=== PATIENT | male | born 1950 | race Caucasian/White ===

== ENCOUNTER 2019-09-23 19:25 | Emergency (ER) | payer MEDICARE ==
--- NOTE | 2019-09-23 20:56 | ED Physician Documentation ---
PD HPI LOWER EXT INJURY - Stated complaint Stated Complaint: LT KNEE INJURY - Chief complaint Chief Complaint: Ext Problem - History obtained from History obtained from: Patient - History of Present Illness PD HPI LOW EXT INJURY LOCATION: Left, Knee Type of injury: Blunt / blow Where injury occurred: Park Timing - onset: Enter time (16:00), Today Timing - details: Abrupt onset Improved by: Rest Worsened by: Moving, Palpating Associated symptoms: Swelling. No: Weakness, Numbness Recently seen: Not recently seen - Additional information Additional information: patient was in a park walking his dog at approximately 4 PM today. Another dog was chasing patient's dog and the other dog, which was particularly large, struck patient's left knee. Patient had sudden onset left knee pain that has steadily worsened since the incident Review of Systems Musculoskeletal: reports: Joint pain, Joint swelling, Pain with weight bearing Neurologic: denies: Focal weakness, Numbness PD PAST MEDICAL HISTORY - Past Surgical History Past Surgical History: Yes Ortho: Knee replacement (right knee) - Present Medications Home Medications: Ambulatory Orders Medication Instructions Recorded Confirmed Hydrocodone/Acetaminophen 1 - 2 each PO Q6H PRN #14 tablet 09/23/19 [Hydrocodon-Acetaminophen 5-325] - Allergies Allergies/Adverse Reactions: Allergies Allergy/AdvReac Type Severity Reaction Status Date / Time No Known Drug Allergies Allergy Verified 09/23/19 19:33 - Living Situation Living Arrangement: reports: At home PD ED PE NORMAL - Vitals Vital signs reviewed: Yes - General General: Alert and oriented X 3, No acute distress, Well developed/nourished - Derm Derm: Normal color, Warm and dry - Neuro Neuro: No motor deficit, No sensory deficit PD ED PE EXPANDED - Extremities Extremities: Tenderness (anterolateral aspect of left knee), Swelling. No: Limited ROM (FROM right knee but pain with ROM) Results - Vitals Vitals: Vital Signs - 24 hr 09/23/19 09/23/19 19:33 21:48 Temperature 36.5 C 36.8 C Heart Rate 120 H 113 H Respiratory 16 18 Rate Blood Pressure 166/100 H 150/98 H O2 Saturation 98 96 Oxygen O2 Source Room air - Rads (name of study) left knee xrays Radiology: Prelim report reviewed, See rad report PD MEDICAL DECISION MAKING - ED course Complexity details: reviewed results, re-evaluated patient, considered differential, d/w patient Departure - Departure Disposition: 01 Home, Self Care Clinical Impression: Left knee sprain Qualifiers: Encounter type: initial encounter Involved ligament of knee: unspecified ligament Qualified Code(s): S83.92XA - Sprain of unspecified site of left knee, initial encounter Condition: Good Instructions: ED Sprain Knee Follow-Up: Tommie Zhang MD [Provider Admit Priv/Credential] - Prescriptions: Hydrocodone/Acetaminophen [Hydrocodon-Acetaminophen 5-325] 1 - 2 each PO Q6H PRN #14 tablet PRN Reason: pain Discharge Date/Time: 09/23/19 22:01
--- NOTE | 2019-09-23 21:05 | XRAY Report ---
Reason: fall, knee pain Procedure Date: 09/23/2019 Accession Number: [id number] / [id number] Procedure: XR - Knee 4 View LT CPT Code: Final Report FULL RESULT: EXAM: LEFT KNEE RADIOGRAPHY EXAM DATE: 09/23/2019 08:51 PM. CLINICAL HISTORY: Fall, knee pain. COMPARISON: None. TECHNIQUE: 4 views. FINDINGS: Bones: Mild decreased osseous mineralization somewhat limits evaluation for nondisplaced fractures. No definite displaced fractures identified radiographically. Joints: Moderate to large knee effusion. Soft Tissues: Large focus of heterotopic ossification along the lateral aspect of the proximal lateral femoral condyle. IMPRESSION: 1. Decreased osseous mineralization somewhat limits evaluation for nondisplaced fractures. 2. No definite displaced fractures identified radiographically. 3. Moderate to large knee effusion. RADIA
[2019-09-23] MEDS: HYDROcod/ACET 5/325 Prepack 4 PO STA (21:47)
[2019-09-23 21:52] VITALS: BP 150/98
== END 2019-09-23 22:01 | disposition home or self-care (01) ==
LOC: ED 19:25
DX: S83.92XA Sprain of unspecified site of left knee, initial encounter (principal); W54.1XXA Struck by dog, initial encounter; Y93.K1 Activity, walking an animal; Y92.830 Public park as the place of occurrence of the external cause; Z96.651 Presence of right artificial knee joint
CPT/HCPCS: 99283

== ENCOUNTER 2019-10-17 09:12 | Emergency (ER) | payer MEDICARE, OTHER ==
[2019-10-17 09:27] VITALS: BP 164/102
--- NOTE | 2019-10-17 10:30 | ED Physician Documentation ---
History of Present Illness - Stated complaint Stated Complaint: MED REFILL - Chief complaint Chief Complaint: General - Additonal information Additional information: This is a 68-year-old male who presents with left knee pain requesting medi cation refill. He injured his knee 3 weeks ago, had an x-ray at the time did not show any fracture but did show a joint effusion. He was prescribed some Vicodin at that time and his knee has been improving, he got off crutches just over a week ago and his ambulation is gotten better. He does continue to have some pain, but overall he is improving. He plans to follow-up with his orthopedist if he does not have continued improvement. He is about to go on a flight to a meeting and he states that the pain at night is keeping him up, and he is hoping to get a refill of a few more of the pain medications for his flight and travels only. He cannot take ibuprofen because he has atrial fibrillation and is on warfarin. He has been trying Tylenol, but this is been effective alone. No fever or chills. Review of Systems Constitutional: denies: Fever Musculoskeletal: reports: Extremity pain PD PAST MEDICAL HISTORY - Past Medical History Cardiovascular: Hypertension, Atrial fibrillation Endocrine/Autoimmune: Type 2 diabetes - Past Surgical History Past Surgical History: Yes Ortho: Knee replacement (right knee) - Present Medications Home Medications: Ambulatory Orders Medication Instructions Recorded Confirmed Hydrocodone/Acetaminophen 1 - 2 each PO Q6H PRN #14 tablet 09/23/19 [Hydrocodon-Acetaminophen 5-325] Hydrocodone/Acetaminophen 1 - 2 each PO Q6H PRN #12 tablet 10/17/19 [Hydrocodon-Acetaminophen 5-325] - Allergies Allergies/Adverse Reactions: Allergies Allergy/AdvReac Type Severity Reaction Status Date / Time lisinopril Allergy Headache Verified 10/17/19 09:22 - Social History Does the pt smoke?: No Smoking Status: Never smoker Does the pt drink ETOH?: No Does the pt have substance abuse?: No - Immunizations Immunizations are current?: Yes - POLST Patient has POLST: No PD ED PE NORMAL - Vitals Vital signs reviewed: Yes - General General: Alert and oriented X 3 - HEENT HEENT: PERRL - Neck Neck: Supple, no meningeal sign - Cardiac Cardiac: Strong equal pulses - Respiratory Respiratory: No respiratory distress - Abdomen Abdomen: Non distended - Derm Derm: Warm and dry - Extremities Extremities: Other (There is some mild edema around the left knee. No obvious laxity with anterior and posterior drawer testing, no tenderness over the MCL or ACL. He has 5 out of 5 strength with knee extension and flexion, normal range of motion. He is to ambulate and bear weight on the knee.Distal sensation and capillary refill are intact) - Neuro Neuro: Alert and oriented X 3 - Psych Psych: Normal mood, Normal affect Results - Vitals Vitals: Oxygen O2 Source Room air PD MEDICAL DECISION MAKING - ED course ED course: Pt presents with improving knee pain. He has outpatient follow up planned. He has good ROM, no signs of infection or fracture. He is able to bear weight on it. He did have an effusion on his XR on previous visit and it is possible that he has an internal derangement, though his improvement and no longer needing crutches is reassuring. I discussed with him in depth the risks and side effects of narcotic medications. After discussion with him he is low risk for complications and I am willing to provide one, several day refill of hydrocodone, but he understands this is the last script he will obtain from the ED, and that he needs to taper off these medications. After reviewing return precautions and follow up pt was discharged in good condition. Departure - Departure Disposition: 01 Home, Self Care Clinical Impression: Knee pain, left Qualifiers: Chronicity: acute Qualified Code(s): M25.562 - Pain in left knee Prescriptions: Hydrocodone/Acetaminophen [Hydrocodon-Acetaminophen 5-325] 1 - 2 each PO Q6H PRN #12 tablet PRN Reason: pain Comments: I am prescribing you a few days worth of the Vicodin, but any further narcotic medications will have to come from your orthopedist or primary care provider. As we spoke about, these medications can be addictive and tolerance forming, they have multiple side effects, use them only if absolutely needed, and taper down their use as soon as possible. If you are having any continued or not improving pain, I think it is important that you follow-up with your primary care provider and/or your orthopedist. If you are having signs of infection or severely worsening pain return to the emergency department. Do not drink alcohol or drive while taking narcotic pain medication. Note that many narcotic pain relievers also contain Tylenol/acetaminophen. Please ensure that your total dose of acetaminophen from all sources does not exceed 3 g (3000 mg) per day. You may get constipated while on this medication. Take a stool softener such as Colace twice a day while you are on it. Also add an [id number] laxative such as senna or MiraLAX on any day that you do not have a bowel movement. If you received a narcotic pain medication or sedative while in the emergency department, do not drive for the next 24 hours. Discharge Date/Time: 10/17/19 10:49
== END 2019-10-17 10:49 | disposition home or self-care (01) ==
LOC: ED 09:12
DX: M25.562 Pain in left knee (principal); Z76.0 Encounter for issue of repeat prescription; I48.91 Unspecified atrial fibrillation; Z79.01 Long term (current) use of anticoagulants; I10 Essential (primary) hypertension; E11.9 Type 2 diabetes mellitus without complications; Z96.651 Presence of right artificial knee joint
CPT/HCPCS: 99281; 99284

== ENCOUNTER 2020-03-22 13:41 | Outpatient (CLI) | payer MEDICARE, OTHER ==
--- NOTE | 2020-03-22 15:18 | MRI Report ---
PROCEDURE: Knee LT W/O INDICATIONS: PAIN IN LT KNEE TECHNIQUE: Noncontrast sagittal PD fast spin echo and T2 fast spin echo with fat saturation, sagittal 3-D gradie nt sequence with fat saturation; coronal T1 spin echo and PD fast spin echo with fat saturation, and axial PD fast spin echo with fat saturation through the knee. COMPARISON: None. FINDINGS: Image quality: Excellent. Menisci: Linear oblique high T2 signal intensity traverses the medial meniscal posterior horn, demons trating oblique tearing. There is lateral extrusion of the lateral meniscus which demonstrates linear and amorphous high signal intensity within its anterior horn, body, and posterior horn, demonstratin g superior and inferior articular surface extension, indicating complex tearing. Radial tearing of th e free edge of the lateral meniscal body is present, which is truncated. Cruciate ligaments: The anterior cruciate ligament is indistinct and demonstrates moderate internal and surrounding T2 signal elevation. Posterior cruciate ligament is intact. Medial structures: The medial collateral ligament appears intact. The posterior oblique ligament, s emimembranosus tendon insertions, and oblique popliteal ligament, and meniscocapsular junction appear intact. Visualized portions of the pes anserinus tendons appear normal. Small amount of medial burs al fluid. Lateral structures: The lateral collateral ligament demonstrates moderate T2 signal elevation at its femoral origin. The Long and short heads of the biceps femoris tendon appear intact. The popliteus tendon appears normal; the popliteofibular ligament appears intact. The posterosuperior and anteroin ferior popliteomeniscal fascicles appear intact. The arcuate and fabellofibular ligaments appear int act, around the lateral inferior geniculate artery. Iliotibial band appears normal. Anterior structures: The quadriceps and patellar tendons appear intact. Patellar alignment is viri l. No femoral trochlear dysplasia or ventral trochlear prominence. No edema in the infrapatellar fa t pad. Bones and cartilage: There is a mildly displaced sagittal oblique plane fracture of the lateral tibia l plateau, with articular surface extension to the tibial plateau. There is mild surrounding ill-defi shyanne STIR signal elevation within the lateral tibial plateau. Moderate tricompartmental periarticular osteophyte formation. Mild articular cartilage loss diffusely overlies the weightbearing aspects of t he medial femoral condyle and medial tibial plateau. Severe articular cartilage loss diffusely overli es the weightbearing aspects of the lateral femoral condyle and lateral tibial plateau. Severe articu lar cartilage loss overlies the lateral aspect of the lateral patellar facet. Joint space: There is a moderate knee joint effusion. There is a 17 mm loose body within the latera l suprapatellar recess. No Byers?s cyst. Normal appearing synovial plicae are incidentally noted. IMPRESSION: 1. Mildly displaced subacute appearing fracture of the lateral tibial plateau. 2. Medial and lateral meniscal tearing. 3. Tricompartment loss or arthritis with associated articular cartilage loss. 4. Knee joint effusion. Intra-articular loose body. 5. Partial-thickness lateral collateral ligament tear. 6. ACL strain. 7. Medial bursitis. Reviewed by: Fariba Hopkins MD on 03/22/2020 3:17 PM PDT Approved by: Fariba Hopkins MD on 03/22/2020 3:17 PM PDT Station ID: [id number]
== END 2020-03-22 13:42 | disposition home or self-care (01) ==
LOC: DI 13:41
PROVIDERS: ATTEND Internal Medicine
DX: S82.142A Displaced bicondylar fracture of left tibia, initial encounter for closed fracture (principal); S83.282A Other tear of lateral meniscus, current injury, left knee, initial encounter; S83.242A Other tear of medial meniscus, current injury, left knee, initial encounter; S83.422A Sprain of lateral collateral ligament of left knee, initial encounter; S83.512A Sprain of anterior cruciate ligament of left knee, initial encounter; M70.52 Other bursitis of knee, left knee; M25.462 Effusion, left knee; M25.362 Other instability, left knee

== ENCOUNTER 2020-04-26 12:53 | Outpatient (CLI) | payer MEDICARE, OTHER | END 2020-04-26 12:54 | disposition critical access hospital (66) | LOC: EMS 12:53 | PROVIDERS: ATTEND Surgery | DX: M25.512 Pain in left shoulder (principal); M54.2 Cervicalgia; R06.02 Shortness of breath | CPT/HCPCS: A0425; A0427 ==

== ENCOUNTER 2020-04-26 13:00 | Emergency (ER) | payer MEDICARE, OTHER ==
[2020-04-26 13:21] LABS: BASOPHILS % (AUTO) 0.3 %; EOSINOPHILS % (AUTO) 1.3 %; HGB - HEMOGLOBIN 11.9 g/dL (14.0-18.0); LYMPHOCYTES % (AUTO) 1.1 %; MEAN CORPUSCULAR HEMOGLOBIN 32.3 pg (27.0-31.0); MEAN CORPUSCULAR HGB CONC 34.5 g/dL (32.0-36.0); MEAN CORPUSCULAR VOLUME 93.8 fL (80.0-94.0); MEAN PLATELET VOLUME 8.9 fL (7.4-11.4); MONOCYTES % (AUTO) 7.7 %; NEUTROPHILS % (AUTO) 88.9 %; PLT - PLATELET COUNT 186 10^3/uL (130-450); RED BLOOD COUNT 3.68 10^6/uL (4.70-6.10); RED CELL DISTRIBUTION WIDTH 12.4 % (12.0-15.0); WHITE BLOOD COUNT 14.9 x10^3/uL (4.8-10.8)
[2020-04-26 13:24] LABS: ABNORMAL LYMPHS % (MANUAL) 0 %
[2020-04-26 13:34] LABS: ALBUMIN 3.5 g/dL (3.2-5.5); ALBUMIN/GLOBULIN RATIO 0.9 (1.0-2.2); BILIRUBIN,TOTAL 0.6 mg/dL (0.2-1.0); CREATININE 1.5 mg/dL (0.6-1.2); TOTAL PROTEIN 7.5 g/dL (6.7-8.2)
--- NOTE | 2020-04-26 13:34 | ED Physician Documentation ---
History of Present Illness - Stated complaint Stated Complaint: CHEST PAIN - History obtained from History obtained from: Patient - History of Present Illness Timing: Prior to arrival, How many hours ago (22) - Additonal information Additional information: 69-year-old gentleman with a known history of Zentz to the emergency department with chief complaint of left shoulder pain that radiates down the right arm. Pain began yesterday at approximately 4 PM. He describes the pain is quite severe limiting his ability to raise his left arm. He does report that the day before he had helped unload heavy bags of garbage from a truck. He reports some mild SOB that he attributes to recent bladder problems. He denies that his chest hurts. But because of the location of the pain he is worried about his heart.He has also recently developed acute kidney injury. For which his hydrochlorothiazide and losartan have been placed on hold. pm,h: htn, atrial fibrillation, DM meds: coumadin, digoxin, Januvia (on hold HCTZ and losartan) pcp: Dr. Dougherty ([facility]) [employer] PD PAST MEDICAL HISTORY - Past Medical History Cardiovascular: Hypertension, Atrial fibrillation Respiratory: None Neuro: Peripheral neuropathy Endocrine/Autoimmune: Type 2 diabetes GI: None : Benign prostate hypertrophy, Other HEENT: None Psych: None Musculoskeletal: Osteoarthritis Derm: None - Past Surgical History Past Surgical History: Yes Ortho: Knee replacement HEENT: Tonsil/Adenoidectomy - Present Medications Home Medications: Ambulatory Orders Medication Instructions Recorded Confirmed Hydrocodone/Acetaminophen 1 - 2 each PO Q6H PRN #14 tablet 09/23/19 [Hydrocodon-Acetaminophen 5-325] Hydrocodone/Acetaminophen 1 - 2 each PO Q6H PRN #12 tablet 10/17/19 [Hydrocodon-Acetaminophen 5-325] HYDROcod/ACETAM 5/325 [Burgess 5/325] 1 each PO BID #5 tablet 04/26/20 - Allergies Allergies/Adverse Reactions: Allergies Allergy/AdvReac Type Severity Reaction Status Date / Time lisinopril Allergy Headache Verified 04/15/20 16:42 - Social History Does the pt smoke?: No Smoking Status: Never smoker Does the pt drink ETOH?: No Does the pt have substance abuse?: No - Immunizations Immunizations are current?: Yes - POLST Patient has POLST: No PD ED PE NORMAL - General General: Alert and oriented X 3, No acute distress - Neck Neck: Supple, no meningeal sign - Cardiac Cardiac: No murmur, Strong equal pulses, Other (Irregularly irregular pulse. Atrial fibrillation noted on monitor. No murmur) - Respiratory Respiratory: No respiratory distress, Clear bilaterally - Abdomen Abdomen: Normal bowel sounds, Non tender - Back Back: No CVA TTP - Derm Derm: Normal color, Warm and dry, No rash - Extremities Extremities: No deformity. No: No tenderness to palpate (Tenderness with palpation of the left anterior shoulder. Painful range of motion noted. 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, No motor deficit, No sensory deficit, Normal speech Eye Opening: Spontaneous Motor: Obeys Commands Verbal: Oriented GCS Score: 15 - Psych Psych: Normal mood Results - Vitals Vitals: Vital Signs - 24 hr 04/26/20 04/26/20 04/26/20 13:03 13:39 14:04 Temperature 38.1 C H 37.2 C Heart Rate 112 H 85 100 Respiratory 17 26 H 13 Rate Blood Pressure 150/107 H 142/85 H 154/67 H O2 Saturation 95 95 100 04/26/20 14:30 Temperature Heart Rate 105 H Respiratory 32 H Rate Blood Pressure 153/99 H O2 Saturation 100 Oxygen O2 Source Room air - EKG (time done) 1305 Rate: Rate (enter#) (113) Rhythm: Atrial fibrillation [place]: LAD Intervals: Normal SD QRS: Normal Ischemia: Non specific changes (v5v6) Compare to prior EKG: Old EKG unavailable Computer interpretation: Agree with computer - Labs Labs: Laboratory Tests 04/26/20 04/26/20 04/26/20 13:15 13:15 13:15 WBC 14.9 H RBC 3.68 L Hgb 11.9 L Hct 34.5 L MCV 93.8 MCH 32.3 H MCHC 34.5 RDW 12.4 Plt Count 186 MPV 8.9 Neut # (Auto) Not Reportable Lymph # (Auto) Not Reportable Trinity # (Auto) Not Reportable Eos # (Auto) Not Reportable Baso # (Auto) Not Reportable Absolute Nucleated RBC Not Reportable Total Counted 100 Band Neuts % (Manual) 4 Abnorm Lymph % (Manual) 0 Nucleated RBC % Not Reportable Neutrophils # (Manual) 13.7 H Lymphocytes # (Manual) 0.3 L Monocytes # (Manual) 0.9 Eosinophils # (Manual) 0.0 Basophils # (Manual) 0.0 Differential Comment MANUAL DIFFERENTIAL Platelet Estimate NORMAL (130-450,000) Platelet Morphology NORMAL APPEARANCE RBC Morph Micro Appear NORMAL APPEARANCE Sodium 129 L Potassium 4.1 Chloride 93 L Carbon Dioxide 23 Anion Gap 13.0 BUN 35 H Creatinine 1.5 H Estimated GFR (MDRD) 46 L Glucose 279 H Calcium 9.0 Total Bilirubin 0.6 AST 15 ALT 19 Alkaline Phosphatase 63 Troponin I High Sens B-Natriuretic Peptide 611 H Total Protein 7.5 Albumin 3.5 Globulin 4.0 Albumin/Globulin Ratio 0.9 L Lipase 16 L 04/26/20 13:15 WBC RBC Hgb Hct MCV MCH MCHC RDW Plt Count MPV Neut # (Auto) Lymph # (Auto) Trinity # (Auto) Eos # (Auto) Baso # (Auto) Absolute Nucleated RBC Total Counted Band Neuts % (Manual) Abnorm Lymph % (Manual) Nucleated RBC % Neutrophils # (Manual) Lymphocytes # (Manual) Monocytes # (Manual) Eosinophils # (Manual) Basophils # (Manual) Differential Comment Platelet Estimate Platelet Morphology RBC Morph Micro Appear Sodium Potassium Chloride Carbon Dioxide Anion Gap BUN Creatinine Estimated GFR (MDRD) Glucose Calcium Total Bilirubin AST ALT Alkaline Phosphatase Troponin I High Sens 12.7 B-Natriuretic Peptide Total Protein Albumin Globulin Albumin/Globulin Ratio Lipase - Rads (name of study) CXR Radiology: Final report received (No acute cardiopulmonary disease) Left shoulder Radiology: Final report received (Moderate left shoulder joint osteoarthritis. No acute fracture dislocation) PD MEDICAL DECISION MAKING - ED course Complexity details: reviewed results, re-evaluated patient, considered differential, d/w patient ED course: 69-year-old male presents the emergency department for evaluation of left shoulder pain that radiates down his left arm. He does report that the pain began nearly 24 hours ago. He also reports that about 2 days ago he did lift he manuel bags of garbage out of a truck but does not remember any inciting events. He does reports some dyspnea over the last few days as well - Noted to be in atrial fibrillation. This is a known history. This gentleman is anticoagulated and takes Coumadin. His initial high-sensitivity troponin is negative. His chest x-ray also shows no acute cardiopulmonary findings to suggest heart failure however his BNP is elevated at 611 today - He has been noted to have acute renal injury within the last month. This is been managed through his primary care doctor. His creatinine today is 1.5 which is improved from the previous known of 1.85 - I spoke on the phone with the on-call mill tender warm up with [facility] Diony for this patient. At this point given his moderate BNP elevation of 611. She would not recommend necessarily restarting his hydrochlorothiazide. She does recommend that the BNP be rechecked by his primary care doctor or his mill tender warm up in the next week. - The left shoulder pain is likely musculoskeletal in origin. He did lift heavy trash bags out of a truck 2 days previous. X-ray does show osteoarthritis. I will recommend Tylenol and ice packs. I will also prescribe a very limited amount of hydrocodone for overnight pain relief. Departure - Departure Disposition: Home, Self Care Clinical Impression: Shortness of breath, Elevated brain natriuretic peptide (BNP) level, History of atrial fibrillation Left shoulder pain Qualifiers: Chronicity: acute Qualified Code(s): M25.512 - Pain in left shoulder Condition: Stable Record reviewed to determine appropriate education?: Yes Instructions: Atrial Fibrillation Dc, Shoulder Osteoarthritis Exercise Follow-Up: LEIGH DOUGHERTY [Primary Care Provider] - Within 1 week Prescriptions: HYDROcod/ACETAM 5/325 [Burgess 5/325] 1 each PO BID #5 tablet Comments: The x-ray of your left shoulder shows arthritis. You most likely strained the left shoulder a few days ago when lifting the heavy bags. I would recommend that you ice the shoulder 2-3 times a day for discomfort. I have also prescribed a very limited number of Burgess or Vicodin to help with the pain. Today your EKG continues to show atrial fibrillation but it does not look like you are having a heart attack. 1 of the labs that we measured was called a BNP. This is slightly elevated at 600 today. This may be because you recently stopped taking the hydrochlorothiazide. I would like you to discuss this with your primary care doctor next week. If your creatinine continues to improve resuming the hydrochlorothiazide can be initiated. Your creatinine today is 1.5 If you develop chest pain, worsening shortness of breath have swelling in your arms or legs then please return to the emergency department
--- NOTE | 2020-04-26 13:41 | XRAY Report ---
PROCEDURE: Chest 1 View X-Ray INDICATIONS: Chest Pain TECHNIQUE: One view of the chest was acquired. COMPARISON: None. FINDINGS: Surgical changes and devices: None. Lungs and pleura: No pleural effusions or pneumothorax. Lungs are clear. Mediastinum: Mediastinal contours appear normal. Heart size is normal. Bones and chest wall: No suspicious bony lesions. Overlying soft tissues appear unremarkable. IMPRESSION: No acute disease. Reviewed by: Nestor Chisholm MD on 04/26/2020 1:39 PM PDT Approved by: Nestor Chisholm MD on 04/26/2020 1:39 PM PDT Station ID: [id number]
[2020-04-26 13:42] LABS: BAND NEUTROPHILS % (MANUAL) 4 %; DIFFERENTIAL COMMENT MANUAL DIFFERENTIAL; LYMPHOCYTES # (MANUAL) 0.3 10^3/uL (1.5-3.5); LYMPHOCYTES % (MANUAL) 2 %; MONOCYTES # (MANUAL) 0.9 10^3/uL (0.0-1.0); PLATELET ESTIMATE, MANUAL NORMAL (130-450,000) (NORMAL); PLATELET MORPHOLOGY NORMAL APPEARANCE (NORMAL); RBC MORPHOLOGY (MULTIPLE) NORMAL APPEARANCE (NORMAL)
--- NOTE | 2020-04-26 14:27 | XRAY Report ---
PROCEDURE: Shoulder 2 View LT INDICATIONS: left shoulder pain TECHNIQUE: 2 views of the shoulder were acquired. COMPARISON: None. FINDINGS: Bones: No fractures or dislocations. Moderate acromioclavicular joint and glenohumeral joint osteoar thritic changes are seen. No suspicious bony lesions. Visualized ribs appear intact. Soft tissues: No suspicious soft tissue calcifications. IMPRESSION: Moderate left shoulder joint osteoarthritis. No acute fracture or dislocation. Reviewed by: Saw Brandon MD on 04/26/2020 1:25 PM AKSTEVEN Approved by: Saw Brandon MD on 04/26/2020 1:25 PM AKDT Station ID: [id number]
[2020-04-26 15:29] VITALS: BP 139/117
== END 2020-04-26 15:29 | disposition home or self-care (01) ==
LOC: EDUNIT# → ED 13:00
DX: M19.012 Primary osteoarthritis, left shoulder (principal); M79.602 Pain in left arm; X50.0XXA Overexertion from strenuous movement or load, initial encounter; Y93.89 Activity, other specified; I48.91 Unspecified atrial fibrillation; Z79.01 Long term (current) use of anticoagulants; R06.02 Shortness of breath; R79.89 Other specified abnormal findings of blood chemistry; I10 Essential (primary) hypertension; E11.42 Type 2 diabetes mellitus with diabetic polyneuropathy; Z79.84 Long term (current) use of oral hypoglycemic drugs
CPT/HCPCS: 36415; 71045; 80053; 83690; 83880; 84484; 85025; 93005; 99281; 99284

== ENCOUNTER 2020-04-28 20:10 | Inpatient (IN) | payer MEDICARE, OTHER ==
[2020-04-28] MEDS ORDERED: MORPHINE 2 MG/ML CARPUJECT IVP STA (20:18)
[2020-04-28] MEDS ORDERED: SODIUM CHLORIDE 0.9% 1,000 ML IV STA ×4 (20:18→22:01)
--- NOTE | 2020-04-28 20:23 | ED Physician Documentation ---
History of Present Illness - Stated complaint Stated Complaint: GLF - History obtained from History obtained from: Patient, Family, EMS - History of Present Illness Timing: Today Pain level max: 0 Pain level now: 0 - Additonal information Additional information: 69-year-old male states that he tripped and fell last night at home. He is on warfarin. Unclear if he struck his head or not. He states he is having bilateral knee pain, right elbow pain, left shoulder pain. States he is too weak to walk. He was seen here a few days ago for chest pain. He does self catheterize. He is also diabetic, has not been checking his blood sugars. He feels dehydrated as well. Review of Systems Ten Systems: 10 systems reviewed and negative Constitutional: denies: Fever, Chills Ears: denies: Ear pain Nose: denies: Rhinorrhea / runny nose, Congestion Throat: denies: Sore throat Respiratory: denies: Cough GI: denies: Abdominal Pain, Nausea, Vomiting, Diarrhea Skin: denies: Rash Musculoskeletal: reports: Extremity pain (L shoulder, R elbow, B knees, L hip). denies: Neck pain, Back pain Neurologic: reports: Generalized weakness. denies: Focal weakness, Numbness, Syncope, Seizure, Confused PD PAST MEDICAL HISTORY - Past Medical History Cardiovascular: Hypertension, Atrial fibrillation Respiratory: None Neuro: Peripheral neuropathy Endocrine/Autoimmune: Type 2 diabetes GI: None : Benign prostate hypertrophy, Other HEENT: None Psych: None Musculoskeletal: Osteoarthritis Derm: None - Past Surgical History Past Surgical History: Yes Ortho: Knee replacement HEENT: Tonsil/Adenoidectomy - Present Medications Home Medications: Ambulatory Orders Medication Instructions Recorded Confirmed Hydrocodone/Acetaminophen 1 - 2 each PO Q6H PRN #14 tablet 09/23/19 [Hydrocodon-Acetaminophen 5-325] Hydrocodone/Acetaminophen 1 - 2 each PO Q6H PRN #12 tablet 10/17/19 [Hydrocodon-Acetaminophen 5-325] HYDROcod/ACETAM 5/325 [[place] 5/325] 1 each PO BID #5 tablet 04/26/20 - Allergies Allergies/Adverse Reactions: Allergies Allergy/AdvReac Type Severity Reaction Status Date / Time lisinopril Allergy Unknown Headache Verified 04/28/20 20:23 - Social History Does the pt smoke?: No Smoking Status: Never smoker Does the pt drink ETOH?: No Does the pt have substance abuse?: No - Immunizations Immunizations are current?: Yes - POLST Patient has POLST: No PD ED PE NORMAL - Vitals Vital signs reviewed: Yes - General General: Alert and oriented X 3, No acute distress, Other (Dehydrated, flushed) - HEENT HEENT: Atraumatic, PERRL, Ears normal, Moist mucous membranes, Pharynx benign - Neck Neck: Supple, no meningeal sign, No bony TTP - Cardiac Cardiac: Strong equal pulses, Other (Tachycardic, irregularly irregular) - Respiratory Respiratory: No respiratory distress, Clear bilaterally - Abdomen Abdomen: Soft, Non tender, Non distended - Back Back: No CVA TTP, No spinal TTP - Derm Derm: Warm and dry, No rash - Extremities Extremities: Other - Neuro Neuro: Alert and oriented X 3, 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 Tender palpation over the left shoulder, limited range of motion secondary to pain. Tender to palpation over the bilateral knees, mild swelling. Right knee has been replaced. Tender to palpation over the left hip as well. Neurovascularly intact. No deformities. Results - Vitals Vitals: Vital Signs - 24 hr 04/28/20 04/28/20 04/28/20 20:17 20:23 21:17 Temperature 37.3 C Heart Rate 127 H 130 H 128 H Respiratory 18 30 H 30 H Rate Blood Pressure 117/78 110/71 129/79 O2 Saturation 98 98 98 04/28/20 21:30 Temperature Heart Rate 140 H Respiratory 26 H Rate Blood Pressure 130/80 O2 Saturation 98 Oxygen O2 Source Room air - Labs Labs: Laboratory Tests 04/28/20 04/28/20 04/28/20 20:35 20:35 20:35 WBC 18.8 H RBC 3.42 L Hgb 11.1 L Hct 31.4 L MCV 91.8 MCH 32.5 H MCHC 35.4 RDW 12.4 Plt Count 189 MPV 9.8 Neut # (Auto) Not Reportable Lymph # (Auto) Not Reportable [place] # (Auto) Not Reportable Eos # (Auto) Not Reportable Baso # (Auto) Not Reportable Absolute Nucleated RBC Not Reportable Total Counted 100 Band Neuts % (Manual) 8 Abnorm Lymph % (Manual) 0 Metamyelocytes % 1 H Nucleated RBC % Not Reportable Neutrophils # (Manual) 17.5 H Lymphocytes # (Manual) 0.2 L Monocytes # (Manual) 0.9 Eosinophils # (Manual) 0.0 Basophils # (Manual) 0.0 Differential Comment MANUAL DIFFERENTIAL Manual Slide Review Indicated WBC Morphology 1+ SMUDGE CELLS Platelet Estimate NORMAL (130-450,000) Platelet Morphology NORMAL APPEARANCE RBC Morph Micro Appear NORMAL APPEARANCE PT 71.0 H INR 7.0 H* Sodium 120 L* Potassium 4.1 Chloride 87 L Carbon Dioxide 16 L Anion Gap 17.0 H BUN 59 H Creatinine 2.4 H Estimated GFR (MDRD) 27 L Glucose 400 H Glycated Hemoglobin Estim Average Glucose Calcium 7.8 L Total Bilirubin 0.9 AST 26 ALT 24 Alkaline Phosphatase 72 Total Creatine Kinase 141 Total Protein 6.2 L Albumin 2.8 L Globulin 3.4 Albumin/Globulin Ratio 0.8 L Lipase < 10 L Serum Ketones 04/28/20 04/28/20 20:35 20:35 WBC RBC Hgb Hct MCV MCH MCHC RDW Plt Count MPV Neut # (Auto) Lymph # (Auto) [place] # (Auto) Eos # (Auto) Baso # (Auto) Absolute Nucleated RBC Total Counted Band Neuts % (Manual) Abnorm Lymph % (Manual) Metamyelocytes % Nucleated RBC % Neutrophils # (Manual) Lymphocytes # (Manual) Monocytes # (Manual) Eosinophils # (Manual) Basophils # (Manual) Differential Comment Manual Slide Review WBC Morphology Platelet Estimate Platelet Morphology RBC Morph Micro Appear PT INR Sodium Potassium Chloride Carbon Dioxide Anion Gap BUN Creatinine Estimated GFR (MDRD) Glucose Glycated Hemoglobin 7.8 H Estim Average Glucose 177 H Calcium Total Bilirubin AST ALT Alkaline Phosphatase Total Creatine Kinase Total Protein Albumin Globulin Albumin/Globulin Ratio Lipase Serum Ketones NEGATIVE - Rads (name of study) head CT Radiology: Prelim report reviewed, EMP read contemporaneously, See rad report (No acute abnormality) R elbow xray Radiology: Prelim report reviewed, EMP read contemporaneously, See rad report (No acute abnormality) L shoulder xray Radiology: Prelim report reviewed, EMP read contemporaneously, See rad report (No acute abnormality) L hip xray Radiology: See rad report (No acute abnormality) B knee xray Radiology: See rad report (No acute abnormality) PD MEDICAL DECISION MAKING - ED course Complexity details: reviewed results, re-evaluated patient, considered differential, d/w patient, d/w family, 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 The second is hyperglycemia with dehydration, hyponatremia and an anion gap. He was given insulin and IV fluids for this. Also has significant leukocytosis, likely UTI, blood cultures were drawn, lactate drawn and Rocephin given. A Lundberg catheter was placed. Patient will be admitted for all of the above as well as a supratherapeutic INR. He also has generalized weakness. Discussed the case with Dr. Bran, hospitalist who accepts. This document was made in part using voice recognition software. While efforts are made to proofread this document, sound alike and grammatical errors may occur. Lactate result is pending at the time of signout as well as the UA. These will be followed up by the hospitalist. Departure - Departure Disposition: 66 [facility] DC/Xfer Clinical Impression: Atrial fibrillation with RVR, Supratherapeutic INR, Hyperglycemia, Dehydration, Metabolic acidosis Condition: Stable
[2020-04-28 20:45] LABS: BASOPHILS % (AUTO) 0.8 %; EOSINOPHILS % (AUTO) 1.1 %; HGB - HEMOGLOBIN 11.1 g/dL (14.0-18.0); MEAN CORPUSCULAR HEMOGLOBIN 32.5 pg (27.0-31.0); MEAN CORPUSCULAR HGB CONC 35.4 g/dL (32.0-36.0); MEAN CORPUSCULAR VOLUME 91.8 fL (80.0-94.0); MEAN PLATELET VOLUME 9.8 fL (7.4-11.4); MONOCYTES % (AUTO) 7.6 %; NEUTROPHILS % (AUTO) 87.3 %; PLT - PLATELET COUNT 189 10^3/uL (130-450); RED BLOOD COUNT 3.42 10^6/uL (4.70-6.10); RED CELL DISTRIBUTION WIDTH 12.4 % (12.0-15.0); WHITE BLOOD COUNT 18.8 x10^3/uL (4.8-10.8)
[2020-04-28 21:00] LABS: ALBUMIN 2.8 g/dL (3.2-5.5); ALBUMIN/GLOBULIN RATIO 0.8 (1.0-2.2); ALKALINE PHOSPHATASE 72 IU/L (42-121); ALT ALANINE AMINOTRANSFERASE 24 IU/L (10-60); AST ASPARTATE AMINOTRANSFERASE 26 IU/L (10-42); BILIRUBIN,TOTAL 0.9 mg/dL (0.2-1.0); BUN - BLOOD UREA NITROGEN 59 mg/dL (6-20); CALCIUM 7.8 mg/dL (8.5-10.3); CARBON DIOXIDE - CO2 16 mmol/L (21-32); CHLORIDE 87 mmol/L (101-111); CK- CREATINE KINASE 141 IU/L (22-269); CREATININE 2.4 mg/dL (0.6-1.2); GLUCOSE 400 mg/dL (70-100); TOTAL PROTEIN 6.2 g/dL (6.7-8.2)
[2020-04-28 21:01] LABS: LIPASE < 10 U/L (22-51); SODIUM 120 mmol/L (135-145)
--- NOTE | 2020-04-28 21:03 | CT Report ---
PROCEDURE: HEAD WO INDICATIONS: fall, head injury, takes warfarin TECHNIQUE: Noncontrast 4.5 mm thick angled axial sections acquired from the foramen magnum to the vertex. For r adiation dose reduction, the following was used: automated exposure control, adjustment of mA and/or kV according to patient size. COMPARISON: None. FINDINGS: Image quality: Diagnostic, with note made of motion artifact. CSF spaces: Basal cisterns are patent. No extra-axial fluid collections. Ventricles are normal in size and shape. Brain: No midline shift. No intracranial masses or hemorrhage. Garcia-white matter interface is norm al. Skull and face: There is a focal lobulated 11 mm lesion along the inner table of the right frontal b one, as on series 7 image 14, which likely represents a venous santos. Calvarium and visualized facial bones are intact, without suspicious lesions. Sinuses: Visualized sinuses and mastoids are clear. IMPRESSION: No intracranial hemorrhage is seen. No significant intracranial abnormality is seen. Likely venous santos seen along the anterior right frontal bone. However, attention should be paid to t his area on any future follow-up studies. Reviewed by: Cristhian Hitchcock MD on 04/28/2020 8:01 PM TEZ Approved by: Cristhian Hitchcock MD on 04/28/2020 8:01 PM TEZ Station ID: [id number]
[2020-04-28 21:04] LABS: ABNORMAL LYMPHS % (MANUAL) 0 %
[2020-04-28 21:05] LABS: HB2 TOTAL 11.6 g/dL; HEMOGLOBIN A1C 0.71 g/dL; HEMOGLOBIN A1C % 7.8 % (4.6-6.2)
[2020-04-28 21:18] LABS: BAND NEUTROPHILS % (MANUAL) 8 %; LYMPHOCYTES # (MANUAL) 0.2 10^3/uL (1.5-3.5); LYMPHOCYTES % (MANUAL) 1 %; METAMYELOCYTES % (MANUAL) 1 %; MONOCYTES # (MANUAL) 0.9 10^3/uL (0.0-1.0)
[2020-04-28 21:19] LABS: RBC MORPHOLOGY (MULTIPLE) NORMAL APPEARANCE (NORMAL)
[2020-04-28 21:20] LABS: DIFFERENTIAL COMMENT MANUAL DIFFERENTIAL; PLATELET ESTIMATE, MANUAL NORMAL (130-450,000) (NORMAL); PLATELET MORPHOLOGY NORMAL APPEARANCE (NORMAL)
[2020-04-28] MEDS ORDERED: INSULIN REGULAR HUMAN 100 UNIT/1 ML 10 ML MDV SUBQ STA (21:29)
--- NOTE | 2020-04-28 21:43 | XRAY Report ---
PROCEDURE: Shoulder 3 View LT INDICATIONS: fall, L shoulder pain TECHNIQUE: 3 views of the shoulder were acquired. COMPARISON: Prior left shoulder radiograph 04/26/2020 FINDINGS: Bones: No fractures or dislocations. No suspicious bony lesions. Visualized ribs appear intact. Degenerative changes are seen, with mild subacromial spurring. Soft tissues: No suspicious soft tissue calcifications. The visualized lung demonstrates a normal a ppearance. IMPRESSION: No fractures or dislocations can be seen on this plain film study. Age-appropriate degenerative changes are seen. Reviewed by: Cristhian Hitchcock MD on 04/28/2020 8:42 PM TEZ Approved by: Cristhian Hitchcock MD on 04/28/2020 8:42 PM AKSTEVEN Station ID: [id number]
--- NOTE | 2020-04-28 21:46 | XRAY Report ---
PROCEDURE: Knee 2 View BILAT INDICATIONS: fall, B knee pain TECHNIQUE: 2 views of each knee(s) were acquired. COMPARISON: Correlation is made with Left knee MRI 03/22/2020 FINDINGS: Bones: There is a healing fracture seen involving the left lateral tibial plateau. No acute fracture s or dislocations. No suspicious bony lesions. Right knee arthroplasty hardware is seen. No findings of hardware failure or hardware loosening can b e seen. On the left, there is moderate lateral femoral tibial joint space narrowing, with associated remodeli ng change, with subchondral sclerosis and osteophyte formation. Soft tissues: There is a moderate left knee joint effusion. No suspicious soft tissue calcifications . IMPRESSION: No acute fractures are seen on these plain films. There is a known, healing fracture seen involving the left lateral tibial plateau. Intact appearing right knee hardware. Left knee degenerative changes are seen, which are most prominent involving the lateral femorotibial compartment. A moderate left knee joint effusion can be seen. Reviewed by: Cristhian Hitchcock MD on 04/28/2020 8:44 PM TEZ Approved by: Cristhian Hitchcock MD on 04/28/2020 8:44 PM TEZ Station ID: [id number]
--- NOTE | 2020-04-28 21:49 | XRAY Report ---
PROCEDURE: Hip w/Pelvis 2-3V LT INDICATIONS: fall, L hip pain TECHNIQUE: AP pelvis with lateral view(s) of the left hip(s). COMPARISON: None. FINDINGS: Bones: No fractures or dislocations. Pelvic ring appears intact. No suspicious bony lesions. Left hip arthroplasty hardware is seen. No findings of hardware failure or hardware loosening can be seen. Moderate degenerative change is seen of the contralateral right knee. Note is made of age-appropriate degenerative change of the lower lumbar spine. Soft tissues: The visualized bowel gas pattern is normal. No suspicious soft tissue calcifications. IMPRESSION: No acute fractures are detected on these plain films. Intact appearing left hip arthroplasty hardware. Moderate right hip degenerative change. Reviewed by: Cristhian Hitchcock MD on 04/28/2020 8:48 PM TEZ Approved by: Cristhian Hitchcock MD on 04/28/2020 8:48 PM TEZ Station ID: [id number]
[2020-04-28] MEDS ORDERED: DILTIAZEM 125 MG in DEXTROSE 5% 100 ML IV STA (21:51)
--- NOTE | 2020-04-28 21:51 | XRAY Report ---
PROCEDURE: Elbow 3 View RT INDICATIONS: fall, R elbow pain and swelling TECHNIQUE: 3 views of the elbow were acquired. COMPARISON: None available at the time of this dictation. FINDINGS: Bones: Focal irregularity is seen involving the right humeral neck. This demonstrates a remote, well- corticated appearance. No larry, displaced fractures are seen. Degenerative changes are seen througho ut. No suspicious lytic or blastic lesions are seen. Soft tissues: No large elbow joint effusion. No suspicious soft tissue calcifications. IMPRESSION: Focal, chronic appearing irregularity seen of the right humeral neck. No definite, displaced fracture s are seen. Please correlate with focal tenderness. If there is point tenderness (or other clinical concern for a fracture not seen on these plain films) then please consider a dedicated CT study or a short term fo llow up plain film series for further evaluation. Age-appropriate degenerative changes are seen. Reviewed by: Cristhian Hitchcock MD on 04/28/2020 8:49 PM TEZ Approved by: Cristhian Hitchcock MD on 04/28/2020 8:49 PM TEZ Station ID: [id number]
[2020-04-28] MEDS ORDERED: cefTRIAXone 1 GM VIAL IVP STA (21:52)
[2020-04-28] MEDS ORDERED: ONDANSETRON 4 MG/2 ML VIAL IVP PRN (22:01)
[2020-04-28] MEDS ORDERED: DILTIAZEM 50 MG/10 ML VIAL ONE (22:03)
--- NOTE | 2020-04-28 22:12 | HISTORY & PHYSICAL EXAMINATION ---
Chief Complaint - Chief Complaint Chief Complaint: s/p mechanical fall History of Present Illness - Admitted From [facility] - History Obtained From Records Reviewed: yes History obtained from: patient and daughter - History of Present Illness HPI Comment/Other: Patient is a 69-year-old male with history of diabetes mellitus, hypertension, atrial fibrillation on digoxin and Coumadin, BPH and hyperlipidemia who presented to the ED after a mechanical fall. This happened today around 2 PM. He has problems with his left knee and is due to undergo surgery in the near future. Today he bumped his knee going through a narrow doorway and fell. He did not hit his head or pass out. As a result of pain in his right elbow, left knee and right knee he was brought to the ED for evaluation. The right elbow appears inflamed and is warm to touch. Images done of his knee and elbow were unremarkable. However it was advised that if symptoms are significant/ persistent then CT scan should be considered. The patient has also been experiencing chills for the past 5-6 days. He has BPH and "bladder issues". He self caths 4 times daily. He sees a urologist by name Dr. Torrez at [facility]. And has an appointment on 06 May 2020. He was found to be in a rapid irregularly irregular rhythm with a heart rate as high as 130s to 140s in the ED. Further work-up included CBC which showed a WBC of 18. He also had creatinine level of 2.4, blood glucose 400. A UA was strongly indicated of of a UTI. The urine was cloudy with 11-25 WBCs and many bacteria. At bedside he denied any chest pain, dyspnea, abdominal pain, nausea or vomiting. As a result of his clinical findings he is being admitted for further treatment. History - Past Medical History Cardiovascular: reports: Hypertension, High cholesterol, Atrial fibrillation Respiratory: reports: None Neuro: reports: Peripheral neuropathy Endocrine/Autoimmune: reports: Type 2 diabetes GI: reports: None : reports: Benign prostate hypertrophy, Other HEENT: reports: None Psych: reports: None Musculoskeletal: reports: Osteoarthritis Derm: reports: None MRSA Hx?: No Other Past Medical History: Hx of melanoma - Past Surgical History General: reports: Appendectomy Ortho: reports: Hip replacement (left), Knee replacement (right) HEENT: reports: Tonsil/Adenoidectomy - Family & Social History Family History Comment/Other: Extensive family history of diabetes mellitus Living arrangement: At home Living Situation: Alone Social History Notes: Patient does not smoke, use alcohol or illicit drugs. - POLST Patient has POLST: No POLST Status: Full Code Meds/Allgy - Home Medications Home Medications: Ambulatory Orders Medication Instructions Recorded Confirmed Hydrocodone/Acetaminophen 1 - 2 each PO Q6H PRN #14 tablet 09/23/19 [Hydrocodon-Acetaminophen 5-325] Hydrocodone/Acetaminophen 1 - 2 each PO Q6H PRN #12 tablet 10/17/19 [Hydrocodon-Acetaminophen 5-325] HYDROcod/ACETAM 5/325 [[address] 5/325] 1 each PO BID #5 tablet 04/26/20 - Allergies Allergies/Adverse Reactions: Allergies Allergy/AdvReac Type Severity Reaction Status Date / Time lisinopril Allergy Unknown Headache Verified 04/28/20 20:23 Review of Systems - Constitutional Constitutional: reports: Chills. denies: Fever - Eyes Eyes: denies: Pain - Ears, Nose & Throat Ears, Nose & Throat: denies: Ear pain - Cardiovascular Cariovascular: reports: Irregular heart rate. denies: Chest pain, Edema, Lightheadedness, Syncope, Exertional dyspnea, Decr. exercise tolerance - Respiratory Respiratory: denies: Cough, Wheezing, SOB at rest, SOB with exertion - Gastrointestinal Gastrointestinal: denies: Abdominal pain, Nausea, Vomiting - Genitourinary Genitourinary: denies: Dysuria, Frequency, Urgency - Musculoskeletal Musculoskeletal: reports: Joint pain (right elbow, right and left knees), Joint swelling (right elbow) - Integumentary Integumentary: reports: Rash - Neurological Neurological: denies: General weakness, Focal weakness, Headache - Psychiatric Psychiatric: denies: Depression, Anxiety - Endocrine Endocrine: reports: Polyuria. denies: Polydypsia - Hematologic/Lymphatic Hematologic/Lymphatic: denies: Anemia, Bruising Prior Level of Functionality: Patient is independent of activities of daily living. He is very active. He is on hiking trails 1 to 2 hours most days. Exam - Vital Signs Vital Signs: Vital Signs x48h Temp Pulse Resp BP Pulse Ox 04/28/20 21:30 140 H 26 H 130/80 98 04/28/20 21:17 128 H 30 H 129/79 98 04/28/20 20:23 130 H 30 H 110/71 98 04/28/20 20:17 37.3 C 127 H 18 117/78 98 - Physical Exam General Appearance: positive: Alert, Moderate distress, Severe distress Eyes Bilateral: positive: PERRL, EOMI ENT: positive: Dry mucous membranes Neck: positive: No JVD, Trachea midline Respiratory: positive: Chest non-tender, No respiratory distress, Breath sounds nml. negative: Wheezes, Rales, Rhonchi Cardiovascular: positive: No murmur, Irregularly irregular, Tachycardia Abdomen: positive: Non-tender, No organomegaly, Nml bowel sounds, No distention. negative: Guarding, Rebound Back: positive: Nml inspection Skin: positive: Color nml, Warm (over right elbow), Other (hyperemic over right elbow) Extremities: positive: Pedal edema, Joint swelling (right elbow) Neurologic/Psychiatric: positive: Oriented x3, Mood/affect nml Sepsis Event Note (H) - Evaluation Current Stage of Sepsis: Sepsis Possible source of Sepsis: positive: Genitourinary - Sepsis Criteria Sepsis Criteria: Recorded Heart Rate greater than 90 bpm, WBC count greater than 12,000 or less than 4000 Conclusion/Plan - Problem List (1) Sepsis Conclusion/Plan: Secondary to UTI. Patient started on Rocephin 1 g IV daily. Will continue. Blood and urine cultures pending. Tylenol PRN for fever. IV hydration with normal saline at 100 mils an hour. Lundberg catheter in place due to BPH. (2) UTI (urinary tract infection) Conclusion/Plan: Patient started on Rocephin 1 g IV daily. Blood and urine cultures collected and pending. (3) Acute kidney injury Conclusion/Plan: Etiology is likely multifactorial. Secondary to UTI, BPH and dehydration. Patient receiving Rocephin 1 g IV daily. Lundberg catheter in place. About 2500 mils of urine was produced within 90 minutes of Lundberg catheter placement. Patient receiving IV hydration. Anticipating improvement in renal function. Will monitor. Patient is scheduled to follow-up with his urologist Dr. Torrez on May 06, 2020 (4) Atrial fibrillation with RVR Conclusion/Plan: Likely exacerbated by patient's sepsis. Patient being treated for UTI with Rocephin. Patient is on a diltiazem drip. Will titrate to effect. We will resume patient's digoxin in the morning. If no improvement in the heart rate, will add a beta-aman. (5) BPH (benign prostatic hyperplasia) Conclusion/Plan: Patient self caths 4 times daily. Lundberg catheter in place currently. Will order Flomax. Renal ultrasound pending. Patient receiving IV hydration with normal saline at 100 mils per hour. Patient to follow-up with his urologist Dr. Torrez on May 06, 2020 (6) Supratherapeutic INR Conclusion/Plan: Patient's INR was 7.0. There is no sign of bleeding. We will hold Coumadin and monitor INR daily. (7) Diabetes mellitus Conclusion/Plan: Poorly controlled. Patient's blood glucose today was 400 and hemoglobin A1c of 7.8. Patient receiving IV hydration. Sliding scale insulin ordered q. before meals and at bedtime. Accu-Cheks ordered. (8) Hypertension Conclusion/Plan: Patient is currently normotensive. We will resume his home medications once verified. However patient is also currently on diltiazem drip. (9) Hyperlipidemia Conclusion/Plan: Will resume home medication once verified. - Lab Results Fish Bones: 04/29/20 04:50 04/29/20 04:50 Core Measures - Anticipated LOS I expect patient to be DC'd or transferred within 96 hours.: Yes - DVT/VTE - Prophylaxis VTE/DVT Device ordered at admit?: Yes VTE/DVT Prophylaxis med ordered at admit?: No
[2020-04-28 22:43] LABS: VBG PCO2 28.8 mmHg (41-51); VBG PH 7.347 (7.31-7.41); VBG PO2 24.9 mmHg (25-47)
[2020-04-28 22:44] LABS: VBG BASE EXCESS -9.1 mmol/L (-2 - +2); VBG TOTAL CO2 16.3 mmol/L (24-29)
[2020-04-28] MEDS ORDERED: HYDROmorphone 1 MG/ML CARPUJECT IVP STA (22:48)
[2020-04-28] MEDS ORDERED: SODIUM CHLORIDE 0.9% 1,000 ML IV SCH (23:00)
[2020-04-28 23:19] LABS: BILIRUBIN,URINE NEGATIVE (NEGATIVE); GLUCOSE, URINE (UA) 250 mg/dL (NEGATIVE); KETONES,URINE (UA) NEGATIVE (NEGATIVE); LEUKOCYTE ESTERASE, URINE SMALL (NEGATIVE); NITRITE,URINE NEGATIVE (NEGATIVE); OCCULT BLOOD,URINE LARGE (NEGATIVE); PROTEIN,URINE 30 mg/dL (NEGATIVE); UROBILINOGEN,URINE 0.2 (NORMAL) E.U./dL (NORMAL)
[2020-04-28] MEDS: DILTIAZEM 125 MG in DEXTROSE 5% 100 ML IV SCH (23:30)
[2020-04-28 23:36] LABS: AMORPHOUS SEDIMENT,UR Few /LPF; BACTERIA,URINE Many /HPF (None Seen); CLARITY,URINE SL. CLOUDY (CLEAR); EPITHELIAL CELLS,UR FEW Renal Tubular /HPF (<= Few); SQUAMOUS EPITHELIAL CELL,UR RARE Squamous (<= Few)
[2020-04-29] MEDS: HYDROmorphone 0.5 MG/0.5 ML SYRINGE IVP PRN ×2 (00:48→06:25)
[2020-04-29] MEDS: SODIUM CHLORIDE FLUSH 0.9% 10 ML SYRINGE IVP SCH ×3 (00:49→17:27)
[2020-04-29 05:37] LABS: BASOPHILS % (AUTO) 0.6 %; EOSINOPHILS % (AUTO) 15.6 %; HGB - HEMOGLOBIN 10.4 g/dL (14.0-18.0); LYMPHOCYTES % (AUTO) 1.4 %; MEAN CORPUSCULAR HEMOGLOBIN 31.2 pg (27.0-31.0); MEAN CORPUSCULAR HGB CONC 34.2 g/dL (32.0-36.0); MEAN CORPUSCULAR VOLUME 91.3 fL (80.0-94.0); MEAN PLATELET VOLUME 9.7 fL (7.4-11.4); MONOCYTES % (AUTO) 6.9 %; NEUTROPHILS % (AUTO) 73.5 %; PLT - PLATELET COUNT 170 10^3/uL (130-450); RED BLOOD COUNT 3.33 10^6/uL (4.70-6.10); RED CELL DISTRIBUTION WIDTH 12.3 % (12.0-15.0); WHITE BLOOD COUNT 15.8 x10^3/uL (4.8-10.8)
[2020-04-29 05:48] LABS: ABNORMAL LYMPHS % (MANUAL) 0 %
[2020-04-29 05:49] LABS: PT - PROTHROMBIN TIME 89.3 secs (9.9-12.6)
[2020-04-29 05:50] LABS: CALCIUM 7.8 mg/dL (8.5-10.3); MAGNESIUM 1.8 mg/dL (1.7-2.8); PHOSPHORUS 1.8 mg/dL (2.5-4.6)
[2020-04-29 06:01] LABS: INR 8.9 (0.8-1.2)
[2020-04-29 06:11] LABS: BAND NEUTROPHILS % (MANUAL) 5 %; LYMPHOCYTES # (MANUAL) 0.5 10^3/uL (1.5-3.5); LYMPHOCYTES % (MANUAL) 3 %; MONOCYTES # (MANUAL) 1.7 10^3/uL (0.0-1.0)
[2020-04-29 06:13] LABS: RBC MORPHOLOGY (MULTIPLE) NORMAL APPEARANCE (NORMAL)
[2020-04-29 06:14] LABS: DIFFERENTIAL COMMENT MANUAL DIFFERENTIAL; PLATELET ESTIMATE, MANUAL NORMAL (130-450,000) (NORMAL); PLATELET MORPHOLOGY NORMAL APPEARANCE (NORMAL)
[2020-04-29] MEDS: DILTIAZEM 125 MG in DEXTROSE 5% 100 ML IV SCH ×4 (06:16→20:47)
[2020-04-29] MEDS: SODIUM CHLORIDE FLUSH 0.9% 10 ML SYRINGE IVP PRN (06:24)
[2020-04-29] MEDS: PANTOPRAZOLE 40 MG VIAL IVP SCH (06:24)
[2020-04-29] MEDS ORDERED: PHYTONADIONE 10 MG/ML AMP PO ONE (07:21)
[2020-04-29] MEDS ORDERED: CHERRY SYRUP 10 ML UDC PO ONE (07:21)
[2020-04-29] MEDS ORDERED: DILTIAZEM 125 MG in DEXTROSE 5% 100 ML IV SCH (07:32)
[2020-04-29] MEDS ORDERED: INSULIN ASPART 300 UNIT/3 ML PEN SUBQ SCH (08:00)
[2020-04-29] MEDS ORDERED: SODIUM CHLORIDE 0.9% 1,000 ML IV SCH (08:06)
--- NOTE | 2020-04-29 08:22 | PHARMACY PROGRESS NOTE ---
- Best Possible Medication History Admit Date and Time: 04/28/202200 Processed by: Pharmacy Medication History completed: Yes Patient Interview: Pt unable to participate Secondary Source(s): Prescription bottles (PATIENT UNABLE TO BE INTERVIEWED. RX BOTTLES AND INSURANCE RECORDS USED TO CONFIRM MEDICATIONS ), Pharmacy records, Insurance records As the person ultimately responsible for medication therapy, providers are able to order a medication from an existing home medication list in [facility] via the "Reconcile Routine" prior to Confirmation of that medication by clerical and office support workers. Such practice is discouraged except when the physician, in their clinical judgment, deems that a medical need exists for a medication without regard to previous use.
--- NOTE | 2020-04-29 08:23 | Ultrasound Report ---
PROCEDURE: Retroperitoneal INDICATIONS: cauti, acute kidney injury TECHNIQUE: Real-time scanning was performed of the retroperitoneal organs, with image documentation. COMPARISON: None. FINDINGS: This study is limited by the patient's inability to cooperate with the examination. Kidneys: The kidneys are prominent in size and demonstrate a lobulated appearance. Right kidney measu res 13.2 cm long; left kidney measures 16.4 cm long. Right renal cortical thickness is 1.5 cm; left renal cortical thickness is 2.4 cm. No solid masses, hydronephrosis, or nephrolithiasis. A likely l eft kidney column of Anthony can be seen. There is an abnormally prominent right proximal ureter that measures up to 3.2 cm. Miscellaneous: No free abdominal fluid. A Lundberg catheter is seen in place. IMPRESSION: Abnormally prominent right proximal ureter. Enlarged, lobulated appearing kidneys, left worse than right. Lundberg catheter. If clinically appropriate, please consider a dedicated CT study, depending upon clinical suspicion. Reviewed by: Cristhian Hitchcock MD on 04/29/2020 7:22 AM TEZ Approved by: Cristhian Hitchcock MD on 04/29/2020 7:22 AM TEZ Station ID: [id number]
[2020-04-29] MEDS: NEUTRA-PHOS 250 MG TABLET PO SCH ×2 (08:26→12:20)
[2020-04-29] MEDS: TAMSULOSIN 0.4 MG CAPSULE PO SCH (08:27)
[2020-04-29] MEDS: DIGOXIN 125 MCG TABLET PO SCH (08:33)
[2020-04-29] MEDS ORDERED: SODIUM CHLORIDE 0.9% 500 ML IV ONE (08:48)
[2020-04-29] MEDS ORDERED: cefTRIAXone 1 GM in SODIUM CHLORIDE 0.9% MINIBAG 100 ML IV SCH (09:00)
[2020-04-29 09:25] LABS: VBG PCO2 26.3 mmHg (41-51); VBG PH 7.41 (7.31-7.41); VBG PO2 35.3 mmHg (25-47); VBG TOTAL CO2 17.1 mmol/L (24-29)
[2020-04-29] MEDS: SODIUM CHLORIDE 0.9% 1,000 ML IV SCH ×3 (09:38→20:28)
--- NOTE | 2020-04-29 11:12 | PROVIDER PROGRESS NOTE ---
Assessment/Plan - Problem List (1) Sepsis Qualifiers: Severe sepsis shock status: with septic shock Assessment/Plan: Patient has inflammatory response, elevated white blood count, UTI and just recently found to have gram-positive bacteremia. Continue with IV fluids, IV antibiotics, await cultures. Continue with saline at significantly faster rate because of hypotension. Shaggy ine bolus was needed today. The entire diagnoses and plan was reviewed with the patient and his adult daughter at bedside (2) Gram-positive bacteremia Assessment/Plan: We will change his antibiotics, use Zosyn which would cover gram positives and gram negatives. Await the identification of the bacteria. Await sensitivities. Will order echo to rule out endocarditis. (3) Atrial fibrillation with RVR Assessment/Plan: Continue with IV diltiazem. Because of "soft" blood pressure, continue with digoxin but hold atenolol. Continue with volume replacement which will also help with a high heart rate. Hold Coumadin until INR in a normal range. Check dig level. (4) Acute delirium Assessment/Plan: His confusion, poor judgment's about wanting to walk outside or go home to take a nap and come back, slowly improved as the day went on. He already had a head CT to rule out brain pathology therefore it is presumed that this confusion is from hypotension and the infection. Remain in ICU. Neuro checks will be ordered (5) Swelling of right elbow joint Assessment/Plan: The right elbow has warmth, redness and swelling with tenderness. Will obtain CT for further delineation, possible septic arthritis. If he has this will need orthopedic consult. The name of IV antibiotics should cover bacteria in a septic joint. (6) Hyponatremia Assessment/Plan: Sodium 120 is partly from poor intake recently and high glucose (pseudo- hyponatremia). It is likely adding to the confusion. Continue with IV saline. Follow serum sodium every 8-12 hours (7) UTI (urinary tract infection) Assessment/Plan: Very abnormal urinalysis at admission led to starting antibiotics using Rocephin for UTI. Retroperitoneal ultrasound of both kidneys is pending. Await urine culture and sensitivities. Ceftriaxone stopped in order to start Zosyn to cover the bacteremia as well as this UTI (8) Acute kidney injury Assessment/Plan: Continue with IV hydration. Follow electrolytes and renal function daily (9) Diabetes mellitus Assessment/Plan: Diabetic diet ordered. Sliding scale insulin coverage ordered and hypoglycemia protocol if needed (10) BPH (benign prostatic hyperplasia) Assessment/Plan: Patient has had recent severe worsening of his urine output with dribbling and knows that his prostate needs attention by urology. (11) Fall as cause of accidental injury at home as place of occurrence Assessment/Plan: Apparently the patient fell and strained his left shoulder about a week ago. With this fall he hit both knees and his right elbow. The daughter at bedside and patient reported that the patient gets hallucinat ions with Ambien and narcotics in combination. Will start Toradol scheduled for 2 days for pain control in order to avoid narcotics. (12) Elevated INR Assessment/Plan: Related to his Coumadin use and infection/antibiotic use. Vitamin K given because he may have bleeding into the areas that were injured in the fall. Follow INR daily. Resume Coumadin when INR is under 2 (13) Anemia Assessment/Plan: Hemoglobin is 10, he has had a lot of IV fluid is in positive fluid balance. We will order B12 and folate levels and check iron stores and replace if low. - Current Meds Current Meds: Current Medications Generic Name Dose Route Start Last Admin Trade Name Freq PRN Reason Stop Dose Admin Digoxin 125 mcg 04/29/20 09:00 04/29/20 08:33 Lanoxin PO 125 mcg DAILY ROCÍO Administration Hydromorphone HCl 0.5 mg 04/29/20 00:41 04/29/20 06:25 Dilaudid Inj Syringe IVP 0.5 mg Q2H PRN Administration PAIN Ceftriaxone Sodium 1 gm/ 100 mls @ 200 mls/hr 04/29/20 09:00 04/29/20 10:09 Sodium Chloride IV Infused DAILY ROCÍO Infusion Diltiazem HCl 125 mg/ Dextrose 125 mls @ 5 mls/hr 04/29/20 08:00 04/29/20 08:35 IV 15 mg/hr .Q25H ROCÍO 15 mls/hr Administration Protocol 5 MG/HR Sodium Chloride 1,000 mls @ 200 mls/hr 04/29/20 09:14 04/29/20 09:38 Normal Saline 0.9% IV 200 mls/hr .Q5H ROCÍO Administration Pantoprazole Sodium 40 mg 04/29/20 07:00 04/29/20 06:24 Protonix IVP 40 mg QDAC ROCÍO Administration Sodium Chloride 10 ml 04/29/20 01:00 04/29/20 08:27 Normal Saline Flush 0.9% IVP 10 ml 0100,0900,1700 ROCÍO Administration Sodium Chloride 10 ml 04/28/20 22:01 04/29/20 06:24 Normal Saline Flush 0.9% IVP 10 ml PRN PRN Administration NEEDED PER PROVIDER ORDERS Tamsulosin HCl 0.4 mg 04/29/20 09:00 04/29/20 08:27 Flomax PO 0.4 mg DAILY ROCÍO Administration - Lab Result Fish Bone Diagrams: 04/29/20 04:50 04/29/20 12:05 - Additional Planning My Orders: My Active Orders 04/29/20 04:50 DIGOXIN [CHEM] Routine 04/29/20 09:14 Sodium Chloride 0.9% [Normal Saline 0.9%] 1,000 ml IV 200 mls/hr 04/29/20 10:49 Vancomycin: Pharmacy To Dose [Vancomycin-Pharmacy To Dose] 1 each MC ONCE PRN 04/29/20 12:00 BMP - BASIC METABOLIC PANEL [CHEM] Timed Insulin Aspart [NovoLOG] 1 - 9 unit SUBQ 0800,1200,1700,2100 Piperacillin/Tazobactam [Zosyn] 3.375 gm Sodium Chloride 0.9% Minibag [Normal Saline 0.9% Minibag] 100 ml IV Q6H 04/30/20 05:00 DIGOXIN [CHEM] DAILYLAB Subjective - Subjective Patient Reports: Other (Requesting to go outside to make a private phone call to his son who is in [facility]. The nurse refused this. Several hours later he once again asked me if he could go home to take a nap then come back.) Nursing Reports: Other (Went back to see the patient when the daughter from [place] had arrived and she was at bedside.) Objective Vital Signs: Vital Signs - 24 hr 04/28/20 04/28/20 04/28/20 20:17 20:23 21:17 Temperature 37.3 C Heart Rate 127 H 130 H 128 H Heart Rate [ Monitoring electrodes] Respiratory 18 30 H 30 H Rate Blood Pressure 117/78 110/71 129/79 Blood Pressure [Left Brachial artery] Blood Pressure [Right Brachial artery] O2 Saturation 98 98 98 04/28/20 04/28/20 04/28/20 21:30 22:52 23:09 Temperature Heart Rate 140 H 135 H 130 H Heart Rate [ Monitoring electrodes] Respiratory 26 H 27 H 22 Rate Blood Pressure 130/80 129/86 H 125/72 Blood Pressure [Left Brachial artery] Blood Pressure [Right Brachial artery] O2 Saturation 98 98 98 04/28/20 04/29/20 04/29/20 23:30 01:00 02:00 Temperature 37 C Heart Rate Heart Rate [ 139 H 129 H 123 H Monitoring electrodes] Respiratory 24 33 H 40 H Rate Blood Pressure Blood Pressure 173/31 H 103/62 101/64 [Left Brachial artery] Blood Pressure [Right Brachial artery] O2 Saturation 91 L 92 93 04/29/20 04/29/20 04/29/20 03:09 04:00 05:00 Temperature Heart Rate Heart Rate [ 122 H 118 H 118 H Monitoring electrodes] Respiratory 25 H 33 H 29 H Rate Blood Pressure Blood Pressure 120/87 H 115/66 122/85 H [Left Brachial artery] Blood Pressure [Right Brachial artery] O2 Saturation 94 94 97 04/29/20 04/29/20 04/29/20 06:00 07:00 07:50 Temperature 37.8 C H Heart Rate Heart Rate [ 123 H 116 H Monitoring electrodes] Respiratory 36 H 33 H Rate Blood Pressure Blood Pressure 120/73 134/79 H [Left Brachial artery] Blood Pressure [Right Brachial artery] O2 Saturation 97 04/29/20 04/29/20 04/29/20 08:00 09:00 10:00 Temperature 37.8 C H Heart Rate Heart Rate [ 124 H 132 H 124 H Monitoring electrodes] Respiratory 25 H 28 H 22 Rate Blood Pressure Blood Pressure 105/70 [Left Brachial artery] Blood Pressure 187/154 H 106/59 L [Right Brachial artery] O2 Saturation 96 96 Oxygen O2 Source Room air I&O (Last 24 Hrs): Intake and Output Totals x24h 04/27/20 04/28/20 04/29/20 23:59 23:59 23:59 Intake Total 5938.084 Output Total 100 3515 Balance -100 2423.084 General: Alert HEENT: Mucous membr. moist/pink Neck: Supple, No JVD Neuro: Alert, Disoriented Cardiovascular: Regular rate Respiratory: No respiratory distress Abdomen: Soft Extremities: Other (Both knees are mildly swollen, not red or warm. The right elbow is moderately swollen, red, warm and tender. The left shoulder is painful from a recent strain (1 week ago)) - Results Results: Laboratory Results WBC 15.8 x10^3/uL (4.8-10.8) H 04/29/20 04:50 RBC 3.33 10^6/uL (4.70-6.10) L 04/29/20 04:50 Hgb 10.4 g/dL (14.0-18.0) L 04/29/20 04:50 Hct 30.4 % (42.0-52.0) L 04/29/20 04:50 MCV 91.3 fL (80.0-94.0) 04/29/20 04:50 MCH 31.2 pg (27.0-31.0) H 04/29/20 04:50 MCHC 34.2 g/dL (32.0-36.0) 04/29/20 04:50 RDW 12.3 % (12.0-15.0) 04/29/20 04:50 Plt Count 170 10^3/uL (130-450) 04/29/20 04:50 MPV 9.7 fL (7.4-11.4) 04/29/20 04:50 Neut # (Auto) Not Reportable 04/29/20 04:50 Lymph # (Auto) Not Reportable 04/29/20 04:50 [place] # (Auto) Not Reportable 04/29/20 04:50 Eos # (Auto) Not Reportable 04/29/20 04:50 Baso # (Auto) Not Reportable 04/29/20 04:50 Absolute Nucleated RBC Not Reportable 04/29/20 04:50 Total Counted 100 04/29/20 04:50 Band Neuts % (Manual) 5 % (0-10) 04/29/20 04:50 Abnorm Lymph % (Manual) 0 % 04/29/20 04:50 Metamyelocytes % 1 % (-0) H 04/28/20 20:35 Nucleated RBC % Not Reportable 04/29/20 04:50 Neutrophils # (Manual) 13.6 10^3/uL (1.5-6.6) H 04/29/20 04:50 Lymphocytes # (Manual) 0.5 10^3/uL (1.5-3.5) L 04/29/20 04:50 Monocytes # (Manual) 1.7 10^3/uL (0.0-1.0) H 04/29/20 04:50 Eosinophils # (Manual) 0.0 10^3/uL (0-0.7) 04/29/20 04:50 Basophils # (Manual) 0.0 10^3/uL (0-0.1) 04/29/20 04:50 Differential Comment MANUAL DIFFERENTIAL 04/29/20 04:50 Manual Slide Review Indicated 04/28/20 20:35 WBC Morphology NORMAL APPEARANCE (NORMAL) 04/29/20 04:50 Platelet Estimate NORMAL (130-450,000) (NORMAL) 04/29/20 04:50 Platelet Morphology NORMAL APPEARANCE (NORMAL) 04/29/20 04:50 RBC Morph Micro Appear NORMAL APPEARANCE (NORMAL) 04/29/20 04:50 PT 89.3 secs (9.9-12.6) H 04/29/20 04:50 INR 8.9 (0.8-1.2) H* 04/29/20 04:50 VBG pH 7.410 (7.31-7.41) 04/29/20 09:16 VBG pCO2 26.3 mmHg (41-51) L 04/29/20 09:16 VBG pO2 35.3 mmHg (25-47) 04/29/20 09:16 VBG HCO3 16.3 mmol/L (23-28) L 04/29/20 09:16 VBG Total CO2 17.1 mmol/L (24-29) L 04/29/20 09:16 VBG O2 Saturation 73.4 % (60-80) 04/29/20 09:16 VBG Base Excess -7.0 mmol/L (-2 - +2) L 04/29/20 09:16 Sodium 120 mmol/L (135-145) L* 04/29/20 04:50 Potassium 4.1 mmol/L (3.5-5.0) 04/29/20 04:50 Chloride 90 mmol/L (101-111) L 04/29/20 04:50 Carbon Dioxide 17 mmol/L (21-32) L 04/29/20 04:50 Anion Gap 13.0 (6-13) 04/29/20 04:50 BUN 55 mg/dL (6-20) H 04/29/20 04:50 Creatinine 2.0 mg/dL (0.6-1.2) H 04/29/20 04:50 Estimated GFR (MDRD) 33 (>89) L 04/29/20 04:50 Glucose 301 mg/dL (70-100) H 04/29/20 04:50 Glycated Hemoglobin 7.8 % (4.6-6.2) H 04/28/20 20:35 Estim Average Glucose 177 (70-100) H 04/28/20 20:35 Lactic Acid 2.1 mmol/L (0.5-2.2) 04/28/20 22:30 Calcium 7.8 mg/dL (8.5-10.3) L 04/29/20 04:50 Phosphorus 1.8 mg/dL (2.5-4.6) L 04/29/20 04:50 Magnesium 1.8 mg/dL (1.7-2.8) 04/29/20 04:50 Total Bilirubin 0.9 mg/dL (0.2-1.0) 04/28/20 20:35 AST 26 IU/L (10-42) 04/28/20 20:35 ALT 24 IU/L (10-60) 04/28/20 20:35 Alkaline Phosphatase 72 IU/L (42-121) 04/28/20 20:35 Total Creatine Kinase 141 IU/L (22-269) 04/28/20 20:35 Total Protein 6.2 g/dL (6.7-8.2) L 04/28/20 20:35 Albumin 2.8 g/dL (3.2-5.5) L 04/28/20 20:35 Globulin 3.4 g/dL (2.1-4.2) 04/28/20 20:35 Albumin/Globulin Ratio 0.8 (1.0-2.2) L 04/28/20 20:35 Lipase < 10 U/L (22-51) L 04/28/20 20:35 Urine Color YELLOW 04/28/20 23:03 Urine Clarity SL. CLOUDY (CLEAR) 04/28/20 23:03 Urine pH 5.0 PH (5.0-7.5) 04/28/20 23:03 Ur Specific [place] 1.015 (1.002-1.030) 04/28/20 23:03 Urine Protein 30 mg/dL (NEGATIVE) H 04/28/20 23:03 Urine Glucose (UA) 250 mg/dL (NEGATIVE) H 04/28/20 23:03 Urine Ketones NEGATIVE mg/dL (NEGATIVE) 04/28/20 23: Urine Occult Blood LARGE (NEGATIVE) H 04/28/20 23:03 Urine Nitrite NEGATIVE (NEGATIVE) 04/28/20 23: Urine Bilirubin NEGATIVE (NEGATIVE) 04/28/20 23: Urine Urobilinogen 0.2 (NORMAL) E.U./dL (NORMAL) 04/28/20 23:03 Ur Leukocyte Esterase SMALL (NEGATIVE) H 04/28/20 23:03 Urine RBC 6-10 /HPF (0-5) H 04/28/20 23: Urine WBC 11-25 /HPF (0-3) H 04/28/20 23:03 Ur Epithelial Cells FEW Renal Tubular /HPF (<= Few) 04/28/20 23:03 Ur Squamous Epith Cells RARE Squamous (<= Few) 04/28/20 23: Amorphous Sediment Few /LPF 04/28/20 23:03 Urine Bacteria Many /HPF (None Seen) H 04/28/20 23:03 Ur Microscopic Review INDICATED 04/28/20 23: Urine Culture Comments INDICATED 04/28/20 23: Nasal Screen MRSA (PCR) NEGATIVE (NEGATIVE) 04/28/20 23: Serum Ketones NEGATIVE (NEGATIVE) 04/28/20 20:35 Sepsis Event Note (H) - Evaluation Current Stage of Sepsis: Sepsis Possible source of Sepsis: positive: Genitourinary - Sepsis Criteria Sepsis Criteria: Recorded Heart Rate greater than 90 bpm, WBC count greater than 12,000 or less than 4000
[2020-04-29 11:25] LABS: DIGOXIN < 0.2 ng/mL
[2020-04-29] MEDS: atenoloL 25 MG TABLET PO SCH (11:44)
[2020-04-29] MEDS: PIPERACILLIN/TAZOBACTAM 3.375 GM in SODIUM CHLORIDE 0.9% MINIBAG 100 ML IV SCH ×2 (12:21→20:27)
[2020-04-29] MEDS: INSULIN ASPART 300 UNIT/3 ML PEN SUBQ SCH ×3 (12:22→20:52)
[2020-04-29 12:24] LABS: CALCIUM 7.4 mg/dL (8.5-10.3); CREATININE 2.1 mg/dL (0.6-1.2)
[2020-04-29] MEDS: KETOROLAC 15 MG/ML VIAL IVP SCH ×2 (15:13→17:59)
[2020-04-29] MEDS ORDERED: LORazepam 1 MG TABLET PO PRN (19:31)
[2020-04-30] MEDS: KETOROLAC 15 MG/ML VIAL IVP SCH ×2 (00:22→06:03)
[2020-04-30] MEDS: SODIUM CHLORIDE FLUSH 0.9% 10 ML SYRINGE IVP SCH ×3 (00:27→18:00)
[2020-04-30] MEDS: SODIUM CHLORIDE 0.9% 1,000 ML IV SCH ×5 (01:31→23:27)
[2020-04-30] MEDS: ACETAMINOPHEN 325 MG TABLET PO PRN ×4 (03:06→23:27)
[2020-04-30] MEDS: PIPERACILLIN/TAZOBACTAM 3.375 GM in SODIUM CHLORIDE 0.9% MINIBAG 100 ML IV SCH (04:16)
[2020-04-30 05:26] LABS: BASOPHILS # (AUTO) 0.1 10^3/uL (0.0-0.1); BASOPHILS % (AUTO) 0.8 %; EOSINOPHILS # (AUTO) 0.1 10^3/uL (0.0-0.7); EOSINOPHILS % (AUTO) 0.3 %; HGB - HEMOGLOBIN 9.3 g/dL (14.0-18.0); LYMPHOCYTES # (AUTO) 0.4 10^3/uL (1.5-3.5); LYMPHOCYTES % (AUTO) 2.5 %; MEAN CORPUSCULAR HEMOGLOBIN 31.8 pg (27.0-31.0); MEAN CORPUSCULAR HGB CONC 33.8 g/dL (32.0-36.0); MEAN CORPUSCULAR VOLUME 94.2 fL (80.0-94.0); MEAN PLATELET VOLUME 10.1 fL (7.4-11.4); MONOCYTES # (AUTO) 1.1 10^3/uL (0.0-1.0); MONOCYTES % (AUTO) 6.8 %; NEUTROPHILS % (AUTO) 83.2 %; PLT - PLATELET COUNT 145 10^3/uL (130-450); RED BLOOD COUNT 2.92 10^6/uL (4.70-6.10); RED CELL DISTRIBUTION WIDTH 12.7 % (12.0-15.0); WHITE BLOOD COUNT 16.9 x10^3/uL (4.8-10.8)
[2020-04-30 05:30] LABS: INR 1.7 (0.8-1.2); PT - PROTHROMBIN TIME 18.8 secs (9.9-12.6)
[2020-04-30 05:38] LABS: CALCIUM 7.2 mg/dL (8.5-10.3); CREATININE 2.2 mg/dL (0.6-1.2); MAGNESIUM 1.9 mg/dL (1.7-2.8); PHOSPHORUS 3.3 mg/dL (2.5-4.6)
[2020-04-30 05:42] LABS: DIGOXIN 0.2 ng/mL
[2020-04-30 05:48] LABS: PLATELET ESTIMATE, MANUAL NORMAL (130-450,000) (NORMAL); PLATELET MORPHOLOGY NORMAL APPEARANCE (NORMAL); RBC MORPHOLOGY (MULTIPLE) NORMAL APPEARANCE (NORMAL)
[2020-04-30] MEDS ORDERED: IOVERSOL 320 100 ML VIAL IVP ONE (05:49)
[2020-04-30] MEDS: PANTOPRAZOLE 40 MG VIAL IVP SCH (06:03)
[2020-04-30] MEDS ORDERED: INSULIN GLARGINE 300 UNIT/3 ML PEN SUBQ STA (06:53)
--- NOTE | 2020-04-30 07:58 | PROVIDER PROGRESS NOTE ---
Assessment/Plan - Problem List (1) Staphylococcus aureus bacteremia with sepsis Assessment/Plan: The gram-positive bacteria in the blood has been identified as staph aureus. Await sensitivities. A possible source could be his skin after the mechanical fall. Echo pending to evaluate for endocarditis. Continue with antibiotics IV, depending on established source of infection, he may need as long as 4 to 6 weeks of IV antibiotics. Remain in ICU, he critically ill. CRITICAL CARE TIME SPENT: 60 min (2) Sepsis Assessment/Plan: He is still tachycardic, no longer hypotensive or febrile, white blood count is still elevated (16K) Continue with care in the ICU (3) Complicated UTI (urinary tract infection) Assessment/Plan: The urine has grown two bacteria: Staph aureus and a Strep species. The Staph UTI is probably the source of the Staph bacteremia. The patient was self cathing himself probably introduced skin organisms into his bladder. Imaging is pending to determine if he has a pyelonephritis>> CT did show pyelonephritis. Await sensitivities on the Staph and Strep bacteria. Continue with IV antibiotics. (4) Pyelonephritis Assessment/Plan: As described on CT abdomen. Continue antibiotic treatment and care as above. (5) Acute kidney injury Assessment/Plan: Creat was 2.4 then improved to 2.0. After that he has he has had worsening of creatinine every day>> 2.1>> 2.2, despite intravascular volume replacement. The Lundberg catheter was newly inserted in the emergency room, does therefore not need to be changed out. He was self cathing at home. No Lundberg at home. Ultrasound retroperitoneal was done and the findings by radiology suggest to do a complete CT of the abdomen. CT abdomen/pelvis without contrast shows pyelonephritis Continue with Lundberg for drainage. Watch I's and O's. (6) Atrial fibrillation with RVR Assessment/Plan: Patient has a history of A. fib and was on digoxin and Coumadin at home. The RVR occurred when he was in septic shock. The heart rate is improving slowly. He still needs IV diltiazem. We will continue to treat with heart rate control meds. The INR shows correction after it was too elevated. Coumadin can be restarted. (7) Cor pulmonale Assessment/Plan: Echo completed today to evaluate LV function in a patient with A. fib with RVR. The echo showed normal LV size and EF of 60%. The findings were of a moderately dilated right ventricle with mildly depressed RV function. There is also moderate palmar hypertension, PA pressure of 57 mmHg Etiology of this is unknown; consider possible COPD, sleep apnea, chronic bronchitis, pulmonary emboli. I will discuss with the daughter to determine if any of the above are in his history. (8) Swelling of right elbow joint Assessment/Plan: Elbow X-ray was done and they recommended CT. Because the creatinine has increased, will order CT of elbow without contrast. (9) Hyponatremia Assessment/Plan: Low Na persists, and is likely from persistently elevated serum glu. Continue hydration with normal saline. Continue management to get the glucose controlled. Follow BMP daily (10) Diabetes mellitus Assessment/Plan: This patient had a fairly good A1c of 7.8. He was not on insulin at home. Here he was started on Lantus just 5 units every afternoon, increased to 10 units twice daily now. He is also on sliding scale insulin coverage, escalating dose for coverage, and a carb controlled diet (11) Fall as cause of accidental injury at home as place of occurrence Assessment/Plan: This patient suffered a mechanical fall at home which led to the presentation in the ER. He described falling on both knees and the right elbow. Both knees and the right elbow are tender, Toradol was used for 1 day for pain control. The Toradol was stopped when the creatinine increased. The right elbow has warmth and swelling. Orthopedic consultation is planned when he has stabilized from a hemodynamic standpoint. (12) BPH (benign prostatic hyperplasia) Assessment/Plan: He was on a medication to help this and was straight cathing himself before this admission. A Lundberg catheter has been placed here, there is good urine output. Follow I's and O's carefully. (13) Anemia Assessment/Plan: This is partly hemo-dilutional because of crystalloids being given to resuscitate from hypotension but he also may have anemia of chronic disease. We will check B12, folate levels and iron stores and replace if low. Follow CBC daily. (14) Acute delirium Assessment/Plan: Resolved, was related to sepsis, infection and hypotension. (15) Elevated INR Assessment/Plan: INR was 7 then 8, this resolved after vit K given, now 1.7. Will resume Coumadin (he was on it for afib stroke prophylaxis). - Current Meds Current Meds: Current Medications Generic Name Dose Route Start Last Admin Trade Name Freq PRN Reason Stop Dose Admin Acetaminophen 650 mg 04/28/20 22:01 04/30/20 03:06 Tylenol PO 650 mg Q6HR PRN Administration Pain 1 to 4 Atenolol 50 mg 04/29/20 09:00 04/29/20 11:44 Tenormin PO Not Given DAILY ROCÍO Digoxin 125 mcg 04/29/20 09:00 04/29/20 08:33 Lanoxin PO 125 mcg DAILY ROCÍO Administration Hydromorphone HCl 0.5 mg 04/29/20 00:41 04/29/20 06:25 Dilaudid Inj Syringe IVP 0.5 mg Q2H PRN Administration PAIN Diltiazem HCl 125 mg/ Dextrose 125 mls @ 5 mls/hr 04/29/20 08:00 04/30/20 01:31 IV 10 mg/hr .Q25H ROCÍO 10 mls/hr Titration Protocol 5 MG/HR Sodium Chloride 1,000 mls @ 200 mls/hr 04/29/20 09:14 04/30/20 07:04 Normal Saline 0.9% IV 200 mls/hr .Q5H ROCÍO Administration Insulin Aspart 1 - 9 unit 04/29/20 12:00 04/29/20 20:52 Novolog SUBQ 9 unit 0800,1200,1700,2100 ROCÍO Administration Protocol Pantoprazole Sodium 40 mg 04/29/20 07:00 04/30/20 06:03 Protonix IVP 40 mg QDAC ROCÍO Administration Sodium Chloride 10 ml 04/29/20 01:00 04/30/20 00:27 Normal Saline Flush 0.9% IVP Not Given 0100,0900,1700 RCOÍO Sodium Chloride 10 ml 04/28/20 22:01 04/29/20 06:24 Normal Saline Flush 0.9% IVP 10 ml PRN PRN Administration NEEDED PER PROVIDER ORDERS Tamsulosin HCl 0.4 mg 04/29/20 09:00 04/29/20 08:27 Flomax PO 0.4 mg DAILY ROCÍO Administration - Lab Result Fish Bone Diagrams: 05/02/20 04:45 05/02/20 04:45 - Additional Planning My Orders: My Active Orders 08/16/20 09:14 Sodium Chloride 0.9% [Normal Saline 0.9%] 1,000 ml IV 200 mls/hr 04/29/20 12:00 Insulin Aspart [NovoLOG] 1 - 9 unit SUBQ 0800,1200,1700,2100 04/29/20 15:42 Neuro Check [RC] QSHIFT 04/30/20 08:00 Echo Transthoracic Complete [ECHO] Routine Subjective - Subjective Patient Reports: Feeling Better, Other (He is alert, feels very tired, was apologizing for his demanding and rude comments yesterday and realizes now that he was very confused.) Objective Vital Signs: Vital Signs - 24 hr 04/29/20 04/29/20 04/29/20 08:00 09:00 10:00 Temperature 37.8 C H Heart Rate [ 124 H 132 H 124 H Monitoring electrodes] Respiratory 25 H 28 H 22 Rate Blood Pressure 105/70 [Left Brachial artery] Blood Pressure 187/154 H 106/59 L [Right Brachial artery] Blood Pressure [Right Radial artery] O2 Saturation 96 96 04/29/20 04/29/20 04/29/20 11:00 12:00 13:00 Temperature Heart Rate [ 117 H 125 H 120 H Monitoring electrodes] Respiratory 40 H 27 H 27 H Rate Blood Pressure [Left Brachial artery] Blood Pressure 106/61 107/80 103/70 [Right Brachial artery] Blood Pressure [Right Radial artery] O2 Saturation 95 98 96 04/29/20 04/29/20 04/29/20 14:00 15:00 16:00 Temperature 37.4 C 37.4 C Heart Rate [ 121 H 109 H 114 H Monitoring electrodes] Respiratory 35 H 24 32 H Rate Blood Pressure [Left Brachial artery] Blood Pressure 111/73 121/58 L 105/65 [Right Brachial artery] Blood Pressure [Right Radial artery] O2 Saturation 96 97 97 04/29/20 04/29/20 04/29/20 17:00 18:00 19:00 Temperature Heart Rate [ 130 H 125 H 111 H Monitoring electrodes] Respiratory 28 H 33 H 29 H Rate Blood Pressure [Left Brachial artery] Blood Pressure 119/93 H 95/71 89/60 L [Right Brachial artery] Blood Pressure [Right Radial artery] O2 Saturation 98 98 99 04/29/20 04/29/20 04/29/20 20:00 21:00 22:00 Temperature 37.7 C H Heart Rate [ 122 H 115 H 111 H Monitoring electrodes] Respiratory 26 H 26 H 33 H Rate Blood Pressure [Left Brachial artery] Blood Pressure 94/57 L 89/57 L 79/53 L [Right Brachial artery] Blood Pressure [Right Radial artery] O2 Saturation 97 98 97 04/29/20 04/29/20 04/30/20 22:10 23:00 00:00 Temperature 37.3 C Heart Rate [ 114 H 118 H 138 H Monitoring electrodes] Respiratory 30 H 25 H 25 H Rate Blood Pressure [Left Brachial artery] Blood Pressure [Right Brachial artery] Blood Pressure 105/63 103/59 L 99/54 L [Right Radial artery] O2 Saturation 98 99 94 04/30/20 04/30/20 04/30/20 01:00 02:00 03:00 Temperature Heart Rate [ 115 H 108 H 119 H Monitoring electrodes] Respiratory 29 H 28 H 28 H Rate Blood Pressure [Left Brachial artery] Blood Pressure [Right Brachial artery] Blood Pressure 92/50 L 89/59 L 82/64 L [Right Radial artery] O2 Saturation 96 97 99 04/30/20 04/30/20 04/30/20 04:00 05:00 06:00 Temperature Heart Rate [ 114 H 112 H 120 H Monitoring electrodes] Respiratory 19 19 24 Rate Blood Pressure [Left Brachial artery] Blood Pressure [Right Brachial artery] Blood Pressure 99/61 103/60 118/52 L [Right Radial artery] O2 Saturation 97 97 93 04/30/20 07:00 Temperature 36.8 C Heart Rate [ 129 H Monitoring electrodes] Respiratory 19 Rate Blood Pressure [Left Brachial artery] Blood Pressure [Right Brachial artery] Blood Pressure 94/52 L [Right Radial artery] O2 Saturation 98 Oxygen O2 Source Room air I&O (Last 24 Hrs): Intake and Output Totals x24h 04/28/20 04/29/20 04/30/20 23:59 23:59 23:59 Intake Total 10186.417 2921 Output Total 100 4755 580 Balance -100 5807.417 2341 General: Alert, Oriented x3 HEENT: Mucous membr. moist/pink, Other (Cheeks are flushed) Neck: Supple Neuro: Alert, Non Focal Cardiovascular: No murmurs, Other (Irregularly irregular) Respiratory: No respiratory distress, Breath sounds nml Abdomen: Soft Extremities: Other (2+ leg edema to the knees. The right elbow is warm, tender red and swollen.) - Results Results: Laboratory Results WBC 16.9 x10^3/uL (4.8-10.8) H 04/30/20 05:10 RBC 2.92 10^6/uL (4.70-6.10) L 04/30/20 05:10 Hgb 9.3 g/dL (14.0-18.0) L 04/30/20 05:10 Hct 27.5 % (42.0-52.0) L 04/30/20 05:10 MCV 94.2 fL (80.0-94.0) H 04/30/20 05:10 MCH 31.8 pg (27.0-31.0) H 04/30/20 05:10 MCHC 33.8 g/dL (32.0-36.0) 04/30/20 05:10 RDW 12.7 % (12.0-15.0) 04/30/20 05:10 Plt Count 145 10^3/uL (130-450) 04/30/20 05:10 MPV 10.1 fL (7.4-11.4) 04/30/20 05:10 Neut # (Auto) 14.0 10^3/uL (1.5-6.6) H 04/30/20 05:10 Lymph # (Auto) 0.4 10^3/uL (1.5-3.5) L 04/30/20 05:10 Stone # (Auto) 1.1 10^3/uL (0.0-1.0) H 04/30/20 05:10 Eos # (Auto) 0.1 10^3/uL (0.0-0.7) 04/30/20 05:10 Baso # (Auto) 0.1 10^3/uL (0.0-0.1) 04/30/20 05:10 Absolute Nucleated RBC 0.00 x10^3/uL 04/30/20 05:10 Total Counted 100 04/29/20 04:50 Band Neuts % (Manual) 5 % (0-10) 04/29/20 04:50 Abnorm Lymph % (Manual) 0 % 04/29/20 04:50 Metamyelocytes % 1 % (-0) H 04/28/20 20:35 Nucleated RBC % 0.0 /100WBC 04/30/20 05:10 Neutrophils # (Manual) 13.6 10^3/uL (1.5-6.6) H 04/29/20 04:50 Lymphocytes # (Manual) 0.5 10^3/uL (1.5-3.5) L 04/29/20 04:50 Monocytes # (Manual) 1.7 10^3/uL (0.0-1.0) H 04/29/20 04:50 Eosinophils # (Manual) 0.0 10^3/uL (0-0.7) 04/29/20 04:50 Basophils # (Manual) 0.0 10^3/uL (0-0.1) 04/29/20 04:50 Differential Comment MANUAL DIFFERENTIAL 04/29/20 04:50 Manual Slide Review Indicated 04/30/20 05:10 WBC Morphology NORMAL APPEARANCE (NORMAL) 04/29/20 04:50 Platelet Estimate NORMAL (130-450,000) (NORMAL) 04/30/20 05:10 Platelet Morphology NORMAL APPEARANCE (NORMAL) 04/30/20 05:10 RBC Morph Micro Appear NORMAL APPEARANCE (NORMAL) 04/30/20 05:10 PT 18.8 secs (9.9-12.6) H 04/30/20 05:10 INR 1.7 (0.8-1.2) H 04/30/20 05:10 VBG pH 7.410 (7.31-7.41) 04/29/20 09:16 VBG pCO2 26.3 mmHg (41-51) L 04/29/20 09:16 VBG pO2 35.3 mmHg (25-47) 04/29/20 09:16 VBG HCO3 16.3 mmol/L (23-28) L 04/29/20 09:16 VBG Total CO2 17.1 mmol/L (24-29) L 04/29/20 09:16 VBG O2 Saturation 73.4 % (60-80) 04/29/20 09:16 VBG Base Excess -7.0 mmol/L (-2 - +2) L 04/29/20 09:16 Sodium 125 mmol/L (135-145) L 04/30/20 05:10 Potassium 3.8 mmol/L (3.5-5.0) 04/30/20 05:10 Chloride 93 mmol/L (101-111) L 04/30/20 05:10 Carbon Dioxide 16 mmol/L (21-32) L 04/30/20 05:10 Anion Gap 16.0 (6-13) H 04/30/20 05:10 BUN 61 mg/dL (6-20) H 04/30/20 05:10 Creatinine 2.2 mg/dL (0.6-1.2) H 04/30/20 05:10 Estimated GFR (MDRD) 30 (>89) L 04/30/20 05:10 Glucose 369 mg/dL (70-100) H 04/30/20 05:10 Glycated Hemoglobin 7.8 % (4.6-6.2) H 04/28/20 20:35 Estim Average Glucose 177 (70-100) H 04/28/20 20:35 Lactic Acid 2.1 mmol/L (0.5-2.2) 04/28/20 22:30 Calcium 7.2 mg/dL (8.5-10.3) L 04/30/20 05:10 Phosphorus 3.3 mg/dL (2.5-4.6) 04/30/20 05:10 Magnesium 1.9 mg/dL (1.7-2.8) 04/30/20 05:10 Total Bilirubin 0.9 mg/dL (0.2-1.0) 04/28/20 20:35 AST 26 IU/L (10-42) 04/28/20 20:35 ALT 24 IU/L (10-60) 04/28/20 20:35 Alkaline Phosphatase 72 IU/L (42-121) 04/28/20 20:35 Total Creatine Kinase 141 IU/L (22-269) 04/28/20 20:35 Total Protein 6.2 g/dL (6.7-8.2) L 04/28/20 20:35 Albumin 2.0 g/dL (3.2-5.5) L 04/30/20 05:10 Globulin 3.4 g/dL (2.1-4.2) 04/28/20 20:35 Albumin/Globulin Ratio 0.8 (1.0-2.2) L 04/28/20 20:35 Lipase < 10 U/L (22-51) L 04/28/20 20:35 Urine Color YELLOW 04/28/20 23:03 Urine Clarity SL. CLOUDY (CLEAR) 04/28/20 23:03 Urine pH 5.0 PH (5.0-7.5) 04/28/20 23:03 Ur Specific Castella 1.015 (1.002-1.030) 04/28/20 23:03 Urine Protein 30 mg/dL (NEGATIVE) H 04/28/20 23:03 Urine Glucose (UA) 250 mg/dL (NEGATIVE) H 04/28/20 23:03 Urine Ketones NEGATIVE mg/dL (NEGATIVE) 04/28/20 23:03 Urine Occult Blood LARGE (NEGATIVE) H 04/28/20 23:03 Urine Nitrite NEGATIVE (NEGATIVE) 04/28/20 23: Urine Bilirubin NEGATIVE (NEGATIVE) 04/28/20 23:03 Urine Urobilinogen 0.2 (NORMAL) E.U./dL (NORMAL) 04/28/20 23:03 Ur Leukocyte Esterase SMALL (NEGATIVE) H 04/28/20 23:03 Urine RBC 6-10 /HPF (0-5) H 04/28/20 23:03 Urine WBC 11-25 /HPF (0-3) H 04/28/20 23:03 Ur Epithelial Cells FEW Renal Tubular /HPF (<= Few) 04/28/20 23:03 Ur Squamous Epith Cells RARE Squamous (<= Few) 04/28/20 23:03 Amorphous Sediment Few /LPF 04/28/20 23:03 Urine Bacteria Many /HPF (None Seen) H 04/28/20 23:03 Ur Microscopic Review INDICATED 04/28/20 23:03 Urine Culture Comments INDICATED 04/28/20 23:03 Nasal Screen MRSA (PCR) NEGATIVE (NEGATIVE) 04/28/20 23:29 Last Dose Date UNKNOWN 04/30/20 05:10 Last Dose Time UNKNOWN 04/30/20 05:10 Digoxin 0.2 ng/mL 04/30/20 05:10 Serum Ketones NEGATIVE (NEGATIVE) 04/28/20 20:35 Sepsis Event Note (H) - Evaluation Current Stage of Sepsis: Sepsis Possible source of Sepsis: positive: Genitourinary - Sepsis Criteria Sepsis Criteria: Recorded Heart Rate greater than 90 bpm, WBC count greater than 12,000 or less than 4000
[2020-04-30] MEDS: DIGOXIN 125 MCG TABLET PO SCH (08:44)
[2020-04-30] MEDS: TAMSULOSIN 0.4 MG CAPSULE PO SCH (08:44)
[2020-04-30] MEDS: INSULIN ASPART 300 UNIT/3 ML PEN SUBQ SCH ×3 (08:46→21:20)
[2020-04-30] MEDS: DILTIAZEM 125 MG in DEXTROSE 5% 100 ML IV SCH ×2 (08:48→21:58)
[2020-04-30] MEDS ORDERED: cefTRIAXone 1 GM in SODIUM CHLORIDE 0.9% MINIBAG 100 ML IV SCH (09:00)
[2020-04-30] MEDS: atenoloL 25 MG TABLET PO SCH (09:52)
[2020-04-30] MEDS ORDERED: PIPERACILLIN/TAZOBACTAM 3.375 GM in SODIUM CHLORIDE 0.9% MINIBAG 100 ML IV SCH (11:00)
[2020-04-30] MEDS ORDERED: INSULIN ASPART 300 UNIT/3 ML PEN SUBQ SCH ×2 (12:23→21:00)
[2020-04-30] MEDS ORDERED: cefTRIAXone 2 GM in SODIUM CHLORIDE 0.9% MINIBAG 100 ML IV SCH (13:30)
[2020-04-30] MEDS ORDERED: DIGOXIN 500 MCG/2 ML AMP IVP STA (13:36)
[2020-04-30] MEDS: WARFARIN 5 MG TABLET PO SCH (14:41)
--- NOTE | 2020-04-30 15:00 | CT Report ---
PROCEDURE: Abdomen/Pelvis WO INDICATIONS: bacteremia, UTI TECHNIQUE: Noncontrast 5 mm thick sections acquired from the diaphragms to the symphysis. 5 mm coronal and sagi ttal reformats were then performed. For radiation dose reduction, the following was used: automated exposure control, adjustment of mA and/or kV according to patient size. COMPARISON: Pelvic radiographs 04/28/2020. FINDINGS: Image quality: Excellent. ABDOMEN: Lung bases: Probable trace right pleural effusion. Bibasilar opacity most compatible with atelectasis . Heart size is normal. Coronary artery calcifications. Solid organs: Liver is prominent in size. Gallbladder demonstrates several calcified gallstones. P ancreas is normal in contours. No spinal megaly. Thickening of the left adrenal gland. The left kidne y appears edematous compared to the right. There is moderate surrounding stranding surrounding the le ft kidney and mild on the right. There is increased conspicuity of the renal calyces and left ureter compared to the right. No kidney stones are identified. There is beam hardening artifact which limits evaluation of the left UVJ despite windowing and leveling. No calculus is seen in this region on the radiographs 04/28/2020. Phleboliths in the pelvis. Peritoneum and bowel: Gaseous distention of the stomach. A few colonic diverticuli. Increased on the distal colon. No small bowel obstruction. Small duodenal diverticulum. Appendix is not dilated. Ther e is a small amount of free fluid in the pelvis and right paracolic gutter. No pneumoperitoneum. Nodes and vessels: No retroperitoneal or mesenteric adenopathy by size criteria. Aorta and inferior vena cava are normal in caliber. Miscellaneous: No ventral hernias. PELVIS: Genitourinary: Bladder is mostly decompressed. A Lundberg catheter is in place. There is a small amount of air within the urinary bladder which is most likely iatrogenic. Miscellaneous: No inguinal hernias or adenopathy. Bones: No suspicious bony lesions. Left hip total arthroplasty. Right hip DJD. No vertebral body com pression fractures. IMPRESSION: 1. Moderate stranding surrounding the left kidney which is more prominent than the right. Left kidney also appears edematous with suspected mild hydronephrosis. Findings concerning for pyelonephritis. 2. No kidney stones are identified. Evaluation of the left UVJ is limited due to beam hardening artif act from the left hip arthroplasty. 3. Small volume of abnormal free fluid in the right pericolic gutter and pelvis. 4. Cholelithiasis. 5. Mild gaseous distention of the stomach. Reviewed by: Júnior Zambrano MD on 04/30/2020 2:59 PM PDT Approved by: Júnior Zambrano MD on 04/30/2020 2:59 PM PDT Station ID: [id number]
[2020-04-30] MEDS: oxyCODONE 5 MG TABLET PO PRN ×2 (16:35→21:17)
--- NOTE | 2020-04-30 16:40 | CT Report ---
PROCEDURE: UPPER EXTREMITY WO - RT INDICATIONS: elbow pain TECHNIQUE: Noncontrast 3 mm axial sections acquired of the right elbow, with coronal and sagittal reformats. COMPARISON: Right elbow radiograph dated 04/28/2020.. FINDINGS: Image quality: Excellent. Bones: Elbow alignment is anatomic. Moderate elbow joint osteoarthritic changes are seen with diffus e joint space narrowing, subchondral sclerosis and cyst formation and marginal osteophyte formation. No definite acute fracture or dislocation is seen. Chronic appearing deformity involving distal humer al shaft just above the level of humeral condyles is seen. Chronic appearing deformity involving prox imal radius/radial neck is also noted. No suspicious intraosseous lesion. Soft tissues: There is small amount of elbow joint effusion. No calcified loose body. Mild elbow sof t tissue swelling is seen. No gross full-thickness elbow tendon rupture. IMPRESSION: 1. Elbow joint osteoarthritis. Suggestion of old deformity involving distal humeral shaft and proxima l radial shaft/neck. No definite acute elbow fracture or dislocation. No suspicious intraosseous lesi on. 2. Small amount of elbow joint effusion. No gross calcified intra-articular loose body. Reviewed by: Saw Brandon MD on 04/30/2020 4:39 PM PDT Approved by: Saw Brandon MD on 04/30/2020 4:39 PM PDT Station ID: [id number]
[2020-04-30] MEDS ORDERED: INSULIN GLARGINE 300 UNIT/3 ML PEN SUBQ SCH ×2 (21:00)
[2020-05-01] MEDS: SODIUM CHLORIDE FLUSH 0.9% 10 ML SYRINGE IVP SCH ×3 (00:18→17:14)
[2020-05-01] MEDS: SODIUM CHLORIDE 0.9% 1,000 ML IV SCH ×5 (04:49→22:04)
[2020-05-01] MEDS: oxyCODONE 5 MG TABLET PO PRN ×3 (04:52→16:54)
[2020-05-01 04:54] LABS: BASOPHILS % (AUTO) 0.6 %; EOSINOPHILS % (AUTO) 0.1 %; HGB - HEMOGLOBIN 9.7 g/dL (14.0-18.0); LYMPHOCYTES % (AUTO) 2.9 %; MEAN CORPUSCULAR HEMOGLOBIN 31.7 pg (27.0-31.0); MEAN CORPUSCULAR HGB CONC 34.4 g/dL (32.0-36.0); MEAN CORPUSCULAR VOLUME 92.2 fL (80.0-94.0); MEAN PLATELET VOLUME 10.2 fL (7.4-11.4); MONOCYTES % (AUTO) 3.5 %; PLT - PLATELET COUNT 168 10^3/uL (130-450); RED BLOOD COUNT 3.06 10^6/uL (4.70-6.10); RED CELL DISTRIBUTION WIDTH 13.2 % (12.0-15.0); WHITE BLOOD COUNT 24.9 x10^3/uL (4.8-10.8)
[2020-05-01 05:00] LABS: ABNORMAL LYMPHS % (MANUAL) 0 %; INR 1.7 (0.8-1.2); PT - PROTHROMBIN TIME 19.3 secs (9.9-12.6)
[2020-05-01 05:08] LABS: CALCIUM 7.1 mg/dL (8.5-10.3); CREATININE 1.9 mg/dL (0.6-1.2); MAGNESIUM 1.8 mg/dL (1.7-2.8); PHOSPHORUS 2.4 mg/dL (2.5-4.6)
[2020-05-01 05:12] LABS: BAND NEUTROPHILS % (MANUAL) 4 %; LYMPHOCYTES # (MANUAL) 0.2 10^3/uL (1.5-3.5); LYMPHOCYTES % (MANUAL) 1 %; MONOCYTES # (MANUAL) 0.2 10^3/uL (0.0-1.0)
[2020-05-01 05:13] LABS: DIFFERENTIAL COMMENT MANUAL DIFFERENTIAL; PLATELET ESTIMATE, MANUAL NORMAL (130-450,000) (NORMAL); PLATELET MORPHOLOGY NORMAL APPEARANCE (NORMAL); RBC MORPHOLOGY (MULTIPLE) NORMAL APPEARANCE (NORMAL)
[2020-05-01] MEDS: PANTOPRAZOLE 40 MG VIAL IVP SCH (06:42)
[2020-05-01] MEDS: INSULIN GLARGINE 300 UNIT/3 ML PEN SUBQ SCH ×2 (09:18→21:23)
[2020-05-01] MEDS: INSULIN ASPART 300 UNIT/3 ML PEN SUBQ SCH ×7 (09:19→21:22)
[2020-05-01] MEDS: TAMSULOSIN 0.4 MG CAPSULE PO SCH (09:22)
[2020-05-01] MEDS: atenoloL 25 MG TABLET PO SCH (09:22)
[2020-05-01] MEDS: NEUTRA-PHOS 250 MG TABLET PO SCH ×2 (09:23→11:26)
[2020-05-01] MEDS: DILTIAZEM 125 MG in DEXTROSE 5% 100 ML IV SCH ×2 (09:24→16:56)
[2020-05-01] MEDS: polyethylene glycoL 3350 17 GM PACKET PO SCH (11:24)
[2020-05-01] MEDS: SENNA 8.6 MG TABLET PO SCH (11:26)
[2020-05-01] MEDS: ACETAMINOPHEN 325 MG TABLET PO PRN ×2 (11:28→18:47)
[2020-05-01] MEDS: LINEZOLID 600 MG/300 ML 600 MG/300 ML BAG IV SCH (14:22)
[2020-05-01] MEDS: WARFARIN 5 MG TABLET PO SCH (14:28)
--- NOTE | 2020-05-01 14:59 | CONSULTATION NOTE ---
Referring Provider Consult Date: 05/01/20 Chief Complaint - Chief Complaint Chief Complaint: right elbow discomfort History of Present Illness - History Obtained From Records Reviewed: discussed with hospitalist History obtained from: patient Exam Limitations: none - History of Present Illness HPI Comment/Other: This is a 69-year-old gentleman with a history of diabetes mellitus, took a fall in a day admission at home. He was getting up at approximately 2:00 in the morning and the left knee hit the door as he was walking, left knee gave way and he fell. He denies loss of consciousness. He did have some discomfort to his knees and right elbow. He has had previous right total knee arthroplasty and is anticipating replacement to the left knee in the future. He has had prior problems with his right elbow with some stiffness and occasional pain. He was noted to have some redness and swelling about the right elbow. He has been admitted with a urinary tract infection and septicemia and there was concern for septic elbow. He states his right elbow pain is decreasing and can move the elbow fairly well without pain. 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 History - Past Medical History Cardiovascular: reports: Hypertension, High cholesterol, Atrial fibrillation Respiratory: reports: None Neuro: reports: Peripheral neuropathy Endocrine/Autoimmune: reports: Type 2 diabetes GI: reports: None : reports: Benign prostate hypertrophy, Other HEENT: reports: None Psych: reports: None Musculoskeletal: reports: Osteoarthritis Derm: reports: None MRSA Hx?: No Other Past Medical History: Hx of melanoma - Past Surgical History General: reports: Appendectomy Ortho: reports: Hip replacement (left), Knee replacement (right) HEENT: reports: Tonsil/Adenoidectomy - Family & Social History Family History Comment/Other: Extensive family history of diabetes mellitus Living arrangement: At home Living Situation: Alone Social History Notes: Patient does not smoke, use alcohol or illicit drugs. - POLST Patient has POLST: No POLST Status: Full Code Meds/Allgy - Home Medications Home Medications: Ambulatory Orders Medication Instructions Recorded Confirmed Digoxin 125 mcg PO DAILY 04/29/20 04/29/20 Glimepiride 8 mg PO DAILY 04/29/20 04/29/20 Metformin HCl 1,000 mg PO BID 04/29/20 04/29/20 SITagliptin [Januvia] 100 mg PO DAILY 04/29/20 04/29/20 Simvastatin 20 mg PO QPM 04/29/20 04/29/20 Tamsulosin [Flomax] 0.4 mg PO DAILY 04/29/20 04/29/20 Warfarin Sodium 5 mg PO QDWARFARIN 04/29/20 04/29/20 Warfarin Sodium 7.5 mg PO QDWARFARIN 04/29/20 04/29/20 atenoloL [Atenolol] 100 mg PO DAILY 04/29/20 04/29/20 - Allergies Allergies/Adverse Reactions: Allergies Allergy/AdvReac Type Severity Reaction Status Date / Time lisinopril Allergy Unknown Headache Verified 04/28/20 20:23 Review of Systems - Musculoskeletal Musculoskeletal: reports: Limited range of motion Exam - Vital Signs Vital Signs: Vital Signs x48h Temp Pulse Resp BP BP Pulse Ox 05/01/20 14:00 108 H 28 H 103/64 96 05/01/20 13:00 100 17 103/54 L 99 05/01/20 12:00 98.6 C H 103 H 18 110/63 96 05/01/20 11:00 101 H 21 109/76 99 05/01/20 10:00 121 H 23 115/74 97 05/01/20 09:00 115 H 26 H 119/65 97 05/01/20 08:00 37.6 C H 124 H 21 133/76 H 97 05/01/20 07:00 125 H 28 H 115/79 96 - Physical Exam General Appearance: positive: No acute distress Eyes Bilateral: positive: Normal inspection ENT: positive: ENT inspection nml Neck: positive: Nml inspection Respiratory: positive: No respiratory distress Peripheral Pulses: positive: 2+ Back: positive: Nml inspection Extremities: negative: Other (The right elbow has relatively good pain-free motion does lack terminal extension but has flexion to 105 degrees. There is no obvious effusion. There is mild erythema about the blisters and superficial laceration. There is no sign of compartment syndrome. The blisters are intact, one measures ab) Neurologic/Psychiatric: positive: Oriented x3, Motor nml, Sensation nml Conclusion and Plan - Lab Results Microbiology Results 04/28/20 23:03 Urine,Catheterized Urine Culture - Final Methicillin Resist S. Aureus Beta Hemolytic Strep Group B 04/28/20 22:30 Blood Blood Culture - Final Methicillin Resist S. Aureus Laboratory Results 05/01/20 12:03: POC Whole Bld Glucose 307 H 05/01/20 07:48: POC Whole Bld Glucose 334 H 05/01/20 04:51: Albumin 1.7 L 05/01/20 04:44: PT 19.3 H, INR 1.7 H 05/01/20 04:44: Sodium 123 L, Potassium 3.9, Chloride 96 L, Carbon Dioxide 15 L, Anion Gap 12.0, BUN 60 H, Creatinine 1.9 H, Estimated GFR (MDRD) 35 L, Glucose 345 H, Calcium 7.1 L, Phosphorus 2.4 L, Magnesium 1.8 05/01/20 04:44: WBC 24.9 H, RBC 3.06 L, Hgb 9.7 L, Hct 28.2 L, MCV 92.2, MCH 31.7 H, MCHC 34.4, RDW 13.2, Plt Count 168, MPV 10.2, Neut # (Auto) Not Reportable, Lymph # (Auto) Not Reportable, [place] # (Auto) Not Reportable, Eos # (Auto) Not Reportable, Baso # (Auto) Not Reportable, Absolute Nucleated RBC Not Reportable, Total Counted 100, Band Neuts % (Manual) 4, Abnorm Lymph % (Manual) 0, Nucleated RBC % Not Reportable, Neutrophils # (Manual) 24.4 H, Lymphocytes # (Manual) 0.2 L, Monocytes # (Manual) 0.2, Eosinophils # (Manual) 0.0, Basophils # (Manual) 0.0, Differential Comment MANUAL DIFFERENTIAL, WBC Morphology NORMAL APPEARANCE, Platelet Estimate NORMAL (130-450,000), Platelet Morphology NORMAL APPEARANCE, RBC Morph Micro Appear NORMAL APPEARANCE 04/30/20 21:14: POC Whole Bld Glucose 358 H 04/30/20 16:35: POC Whole Bld Glucose 419 H 04/30/20 12:17: POC Whole Bld Glucose 425 H 04/30/20 07:55: POC Whole Bld Glucose 366 H 04/30/20 05:10: Albumin 2.0 L 04/30/20 05:10: Last Dose Date UNKNOWN, Last Dose Time UNKNOWN, Digoxin 0.2 04/30/20 05:10: PT 18.8 H, INR 1.7 H 04/30/20 05:10: Sodium 125 L, Potassium 3.8, Chloride 93 L, Carbon Dioxide 16 L, Anion Gap 16.0 H, BUN 61 H, Creatinine 2.2 H, Estimated GFR (MDRD) 30 L, Glucose 369 H, Calcium 7.2 L, Phosphorus 3.3, Magnesium 1.9 04/30/20 05:10: WBC 16.9 H, RBC 2.92 L, Hgb 9.3 L, Hct 27.5 L, MCV 94.2 H, MCH 31.8 H, MCHC 33.8, RDW 12.7, Plt Count 145, MPV 10.1, Neut # (Auto) 14.0 H, Lymph # (Auto) 0.4 L, [place] # (Auto) 1.1 H, Eos # (Auto) 0.1, Baso # (Auto) 0.1, Absolute Nucleated RBC 0.00, Nucleated RBC % 0.0, Manual Slide Review Indicated, Platelet Estimate NORMAL (130-450,000), Platelet Morphology NORMAL APPEARANCE, RBC Morph Micro Appear NORMAL APPEARANCE 04/29/20 20:47: POC Whole Bld Glucose 338 H 04/29/20 17:04: POC Whole Bld Glucose 348 H 04/29/20 11:47: POC Whole Bld Glucose 305 H 04/29/20 07:44: POC Whole Bld Glucose 297 H - Diagnostic Imaging Results Diagnostic Imaging Results: positive: Final report reviewed, Read independently, Other (Routine x-rays and CT scan of the right elbow have been independently visualized and show degenerative joint disease in the ulnohumeral joint with mild effusion but no fracture or dislocation) - Diagnosis Diagnosis: Superficial abrasions, blister and laceration right elbow from blunt trauma. Osteoarthritis right elbow. Discussion: There is no sign of active infection about right elbow at this time, certainly no evidence for septic bursitis or septic arthritis of right elbow. He may be developing some superficial infection about his abrasions, mild if any at this time. I would recommend further observation as he is improving with regard to right elbow. Sterile dressing with Xeroform can be applied to right elbow and I would try to keep the pressure off the posterior aspect of the right elbowSuperficial abrasions, blister and laceration right elbow from blunt trauma. Osteoarthritis right elbow. Discussion: There is no sign of active infection about right elbow at this time, certainly no evidence for septic bursitis or septic arthritis of right elbow. He may be developing some superficial infection about his abrasions, mild if any at this time. I would recommend further observation as he is improving with regard to right elbow. Sterile dressing with Xeroform can be applied to right elbow and I would try to keep the pressure off the posterior aspect of the right elbow
--- NOTE | 2020-05-01 18:04 | PROVIDER PROGRESS NOTE ---
Assessment/Plan - Problem List (1) MRSA bacteremia Assessment/Plan: The Staph bacteria is MRSA. His nares were tested in the ICU and it was MRSA-neg however. Will change his iv antibx to Zyvox, as advised by the hospital pharmacist. He will likely need a PICC line inserted for receiving a long course of iv antibiotics. (2) Sepsis Assessment/Plan: He is still tachycardic, no longer hypotensive or febrile, white blood count is still elevated Continue with care in the ICU (3) Complicated UTI (urinary tract infection) Assessment/Plan: The urine has grown two bacteria: MRSA and a Strep species. This UTI is the source of the Staph bacteremia. The patient was self cathing himself probably introduced skin organisms into his bladder. CT did show pyelonephritis. Continue with IV antibiotics. (4) Pyelonephritis Assessment/Plan: As described on CT abdomen. Continue antibiotic treatment and care as above. (5) Acute kidney injury Assessment/Plan: Creat was 2.4 then improved to 2.0. After that he has he has had worsening of creatinine every day>> 2.1>> 2.2 yesterday, despite intravascular volume replacement. The Lundberg catheter was newly inserted in the emergency room, does therefore not need to be changed out. He was self cathing at home. No Lundberg at home. Ultrasound retroperitoneal was done and the findings by radiology suggest to do a complete CT of the abdomen. CT abdomen/pelvis without contrast showed pyelonephritis Continue with Lundberg for drainage. He knows he will need Urology F/U, saw a Urologist once so far. Watch I's and O's. (6) Atrial fibrillation with RVR Assessment/Plan: Patient has a history of A. fib and was on digoxin and Coumadin at home. The RVR occurred when he was in septic shock. The heart rate is improving slowly. He is still on an IV diltiazem drip. Will try to resume po meds for rate control and wean the Diltiazem drip to off. The INR shows correction after it was too elevated. Coumadin was restarted. Follow INR daily. (7) Cor pulmonale Assessment/Plan: Echo was done to evaluate LV function in a patient with A. fib with RVR. The Echo showed normal LV size and EF of 60%. The findings were of a moderately dilated right ventricle with mildly depressed RV function. There is also moderate pulm hypertension, PA pressure of 57 mmHg. Etiology of this is unknown; consider possible COPD, sleep apnea, chronic bro nchitis, doubt pulmonary emboli. (8) Swelling of right elbow joint Assessment/Plan: Elbow X-ray was done and they recommended CT. MRI was considered but because of his tall size, he could not fit into the MRI scanner. A CT of elbow without contrast was done and did show a small joint effusion. Toradol was started initially, but stopped when creat started to climb. Dr Rodriguez of Ortho was called to see pt in consult today. (9) Hyponatremia Assessment/Plan: Low Na persists, and is likely from persistently elevated serum glu. Continue hydration with normal saline. Continue management to get the glucose controlled (see below) Follow BMP daily (10) Diabetes mellitus Assessment/Plan: This patient had a fairly good A1c of 7.8. He was not on insulin at home. Here he was started on Lantus just 5 units every pm, then increased to LAntus 10 units bid plus ss, and still has glu levels of high 300-400's. Cont carb controlled diet Will increase Lantus to 15U bid and add 5U Reg Insulin at mealtime and continue high ss coverage. (11) Fall as cause of accidental injury at home as place of occurrence Assessment/Plan: This patient suffered a mechanical fall at home which led to the presentation in the ER. He described falling on both knees and the right elbow. No fractures were found by imaging done in the ER. Both knees and the right elbow are tender. Toradol was successful for pain control. The Toradol was stopped when the creatinine increased. The right elbow has warmth and swelling. Orthopedic consultation is planned (12) BPH (benign prostatic hyperplasia) Assessment/Plan: He was straight cathing himself before this admission. He has seen a Urologist once, A Lundberg catheter has been placed here, there is good urine output. Follow I's and O's carefully. (13) Anemia Assessment/Plan: This is partly hemo-dilutional because of crystalloids being given to resuscitate from hypotension but he also may have anemia of chronic disease. We will check B12, folate levels and iron stores and replace if low. Follow CBC daily. (14) Acute delirium Assessment/Plan: Resolved, he was delerious at presentation, likely related to sepsis, infection and hypotension. (15) Elevated INR Assessment/Plan: INR was 7 then 8, this resolved after vit K given, now INR in therapeutic range Will resume Coumadin (he was on it for Afib stroke prophylaxis, and not sure why not on a NOAC). - Current Meds Current Meds: Current Medications Generic Name Dose Route Start Last Admin Trade Name Freq PRN Reason Stop Dose Admin Acetaminophen 650 mg 04/28/20 22:01 05/01/20 11:28 Tylenol PO 650 mg Q6HR PRN Administration Pain 1 to 4 Hydromorphone HCl 0.5 mg 04/29/20 00:41 04/29/20 06:25 Dilaudid Inj Syringe IVP 0.5 mg Q2H PRN Administration PAIN Diltiazem HCl 125 mg/ Dextrose 125 mls @ 5 mls/hr 04/29/20 08:00 05/01/20 16:56 IV 15 mg/hr .Q25H ROCÍO 15 mls/hr Administration Protocol 5 MG/HR Sodium Chloride 1,000 mls @ 200 mls/hr 04/29/20 09:14 05/01/20 16:53 Normal Saline 0.9% IV 200 mls/hr .Q5H ROCÍO Administration Linezolid 600 mg in 300 mls @ 300 mls/hr 05/01/20 13:30 05/01/20 15:25 Zyvox 600 Mg/300 Ml IV Infused Q12H ROCÍO Infusion Insulin Aspart 3 - 11 unit 04/30/20 17:35 05/01/20 13:59 Novolog SUBQ 9 unit 0800,1200,1700,2100 ROCÍO Administration Protocol Insulin Aspart 5 unit 05/01/20 08:59 05/01/20 13:59 Novolog SUBQ Not Given TIDWM ROCÍO Protocol Insulin Glargine 15 unit 05/01/20 09:00 05/01/20 09:18 Lantus Solostar SUBQ 15 unit BID ROCÍO Administration Oxycodone HCl 5 mg 04/29/20 00:41 05/01/20 16:54 Roxicodone PO 5 mg Q4HR PRN Administration PAIN Pantoprazole Sodium 40 mg 04/29/20 07:00 05/01/20 06:42 Protonix IVP 40 mg QDAC ROCÍO Administration Polyethylene Glycol 17 gm 05/01/20 11:00 05/01/20 11:24 Miralax PO 17 gm DAILY ROCÍO Administration Senna 8.6 - 17.2 mg 05/01/20 11:00 05/01/20 11:26 Senokot PO 8.6 mg DAILY ROCÍO Administration Sodium Chloride 10 ml 04/29/20 01:00 05/01/20 17:14 Normal Saline Flush 0.9% IVP Not Given 0100,0900,1700 ROCÍO Sodium Chloride 10 ml 04/28/20 22:01 04/29/20 06:24 Normal Saline Flush 0.9% IVP 10 ml PRN PRN Administration NEEDED PER PROVIDER ORDERS Tamsulosin HCl 0.4 mg 04/29/20 09:00 05/01/20 09:22 Flomax PO 0.4 mg DAILY ROCÍO Administration Warfarin Sodium 5 mg 04/30/20 14:00 05/01/20 14:28 Coumadin PO 5 mg QDWARFARIN ROCÍO Administration - Lab Result Fish Bone Diagrams: 05/02/20 04:45 05/02/20 04:45 - Additional Planning My Orders: My Active Orders 05/01/20 08:59 Infection Precautions [RC] QSHIFT Insulin Aspart [NovoLOG] 5 unit SUBQ TIDWM 05/01/20 09:00 Insulin Glargine [Lantus Solostar] 15 unit SUBQ BID 05/01/20 13:30 Linezolid 600 mg/300 ml [Zyvox 600 mg/300 ml] 600 mg in 300 ml IV Q12H Subjective - Subjective Patient Reports: Feeling Better, Resting Comfortably, Other (Pain in swollen knees and swollen and red R elbow) Objective Vital Signs: Vital Signs - 24 hr 04/30/20 04/30/20 04/30/20 19:00 20:00 21:00 Temperature 36.9 C 37.3 C Heart Rate [ 110 H 109 H 107 H Monitoring electrodes] Respiratory 28 H 25 H 22 Rate Blood Pressure [Left Brachial artery] Blood Pressure 119/64 123/66 128/75 [Right Radial artery] O2 Saturation 98 97 96 04/30/20 04/30/20 05/01/20 22:00 23:00 00:00 Temperature 36.8 C Heart Rate [ 105 H 110 H 95 Monitoring electrodes] Respiratory 26 H 20 27 H Rate Blood Pressure 123/57 L [Left Brachial artery] Blood Pressure 108/62 115/65 [Right Radial artery] O2 Saturation 95 99 94 05/01/20 05/01/20 05/01/20 01:00 02:00 03:00 Temperature Heart Rate [ 102 H 102 H 99 Monitoring electrodes] Respiratory 28 H 33 H 27 H Rate Blood Pressure [Left Brachial artery] Blood Pressure 122/67 124/69 123/66 [Right Radial artery] O2 Saturation 95 96 96 05/01/20 05/01/20 05/01/20 04:00 05:00 06:00 Temperature 36.8 C Heart Rate [ 124 H 118 H 120 H Monitoring electrodes] Respiratory 34 H 30 H 29 H Rate Blood Pressure [Left Brachial artery] Blood Pressure 135/58 H 140/77 H 115/79 [Right Radial artery] O2 Saturation 96 96 96 05/01/20 05/01/20 05/01/20 07:00 08:00 09:00 Temperature 37.6 C H Heart Rate [ 125 H 124 H 115 H Monitoring electrodes] Respiratory 28 H 21 26 H Rate Blood Pressure 119/65 [Left Brachial artery] Blood Pressure 115/79 133/76 H [Right Radial artery] O2 Saturation 96 97 97 05/01/20 05/01/20 05/01/20 10:00 11:00 12:00 Temperature 98.6 C H Heart Rate [ 121 H 101 H 103 H Monitoring electrodes] Respiratory 23 21 18 Rate Blood Pressure 115/74 109/76 110/63 [Left Brachial artery] Blood Pressure [Right Radial artery] O2 Saturation 97 99 96 05/01/20 05/01/20 05/01/20 13:00 14:00 15:00 Temperature Heart Rate [ 100 108 H 94 Monitoring electrodes] Respiratory 17 28 H 22 Rate Blood Pressure 103/54 L 103/64 115/75 [Left Brachial artery] Blood Pressure [Right Radial artery] O2 Saturation 99 96 97 05/01/20 05/01/20 16:00 17:00 Temperature 36.9 C Heart Rate [ 117 H 97 Monitoring electrodes] Respiratory 21 22 Rate Blood Pressure 106/72 100/66 [Left Brachial artery] Blood Pressure [Right Radial artery] O2 Saturation 97 96 Oxygen O2 Source Room air I&O (Last 24 Hrs): Intake and Output Totals x24h 04/29/20 04/30/20 05/01/20 23:59 23:59 23:59 Intake Total 02293.417 8400 6682.833 Output Total 8418 3919 6404 Balance 5807.417 6156 1152.833 General: Alert, Oriented x3 HEENT: Mucous membr. moist/pink, Other (Cheeks flushed) Neck: Supple Neuro: Alert, Non Focal Cardiovascular: No murmurs, Other (Irreg irreg) Respiratory: No respiratory distress, Breath sounds nml Abdomen: Normal bowel sounds, Soft Extremities: Other (Trace pretibial edema, mildly swollen knees, red and swollen R elbow) - Results Results: Laboratory Results WBC 24.9 x10^3/uL (4.8-10.8) H 05/01/20 04:44 RBC 3.06 10^6/uL (4.70-6.10) L 05/01/20 04:44 Hgb 9.7 g/dL (14.0-18.0) L 05/01/20 04:44 Hct 28.2 % (42.0-52.0) L 05/01/20 04:44 MCV 92.2 fL (80.0-94.0) 05/01/20 04:44 MCH 31.7 pg (27.0-31.0) H 05/01/20 04:44 MCHC 34.4 g/dL (32.0-36.0) 05/01/20 04:44 RDW 13.2 % (12.0-15.0) 05/01/20 04:44 Plt Count 168 10^3/uL (130-450) 05/01/20 04:44 MPV 10.2 fL (7.4-11.4) 05/01/20 04:44 Neut # (Auto) Not Reportable 05/01/20 04:44 Lymph # (Auto) Not Reportable 05/01/20 04:44 [place] # (Auto) Not Reportable 05/01/20 04:44 Eos # (Auto) Not Reportable 05/01/20 04:44 Baso # (Auto) Not Reportable 05/01/20 04:44 Absolute Nucleated RBC Not Reportable 05/01/20 04:44 Total Counted 100 05/01/20 04:44 Band Neuts % (Manual) 4 % (0-10) 05/01/20 04:44 Abnorm Lymph % (Manual) 0 % 05/01/20 04:44 Metamyelocytes % 1 % (-0) H 04/28/20 20:35 Nucleated RBC % Not Reportable 05/01/20 04:44 Neutrophils # (Manual) 24.4 10^3/uL (1.5-6.6) H 05/01/20 04:44 Lymphocytes # (Manual) 0.2 10^3/uL (1.5-3.5) L 05/01/20 04:44 Monocytes # (Manual) 0.2 10^3/uL (0.0-1.0) 05/01/20 04:44 Eosinophils # (Manual) 0.0 10^3/uL (0-0.7) 05/01/20 04:44 Basophils # (Manual) 0.0 10^3/uL (0-0.1) 05/01/20 04:44 Differential Comment MANUAL DIFFERENTIAL 05/01/20 04:44 Manual Slide Review Indicated 04/30/20 05:10 WBC Morphology NORMAL APPEARANCE (NORMAL) 05/01/20 04:44 Platelet Estimate NORMAL (130-450,000) (NORMAL) 05/01/20 04:44 Platelet Morphology NORMAL APPEARANCE (NORMAL) 05/01/20 04:44 RBC Morph Micro Appear NORMAL APPEARANCE (NORMAL) 05/01/20 04:44 PT 19.3 secs (9.9-12.6) H 05/01/20 04:44 INR 1.7 (0.8-1.2) H 05/01/20 04:44 VBG pH 7.410 (7.31-7.41) 04/29/20 09:16 VBG pCO2 26.3 mmHg (41-51) L 04/29/20 09:16 VBG pO2 35.3 mmHg (25-47) 04/29/20 09:16 VBG HCO3 16.3 mmol/L (23-28) L 04/29/20 09:16 VBG Total CO2 17.1 mmol/L (24-29) L 04/29/20 09:16 VBG O2 Saturation 73.4 % (60-80) 04/29/20 09:16 VBG Base Excess -7.0 mmol/L (-2 - +2) L 04/29/20 09:16 Sodium 123 mmol/L (135-145) L 05/01/20 04:44 Potassium 3.9 mmol/L (3.5-5.0) 05/01/20 04:44 Chloride 96 mmol/L (101-111) L 05/01/20 04:44 Carbon Dioxide 15 mmol/L (21-32) L 05/01/20 04:44 Anion Gap 12.0 (6-13) 05/01/20 04:44 BUN 60 mg/dL (6-20) H 05/01/20 04:44 Creatinine 1.9 mg/dL (0.6-1.2) H 05/01/20 04:44 Estimated GFR (MDRD) 35 (>89) L 05/01/20 04:44 Glucose 345 mg/dL (70-100) H 05/01/20 04:44 POC Whole Bld Glucose 307 mg/dL (70 - 100) H 05/01/20 12:03 Glycated Hemoglobin 7.8 % (4.6-6.2) H 04/28/20 20:35 Estim Average Glucose 177 (70-100) H 04/28/20 20:35 Lactic Acid 2.1 mmol/L (0.5-2.2) 04/28/20 22:30 Calcium 7.1 mg/dL (8.5-10.3) L 05/01/20 04:44 Phosphorus 2.4 mg/dL (2.5-4.6) L 05/01/20 04:44 Magnesium 1.8 mg/dL (1.7-2.8) 05/01/20 04:44 Total Bilirubin 0.9 mg/dL (0.2-1.0) 04/28/20 20:35 AST 26 IU/L (10-42) 04/28/20 20:35 ALT 24 IU/L (10-60) 04/28/20 20:35 Alkaline Phosphatase 72 IU/L (42-121) 04/28/20 20:35 Total Creatine Kinase 141 IU/L (22-269) 04/28/20 20:35 Total Protein 6.2 g/dL (6.7-8.2) L 04/28/20 20:35 Albumin 1.7 g/dL (3.2-5.5) L 05/01/20 04:51 Globulin 3.4 g/dL (2.1-4.2) 04/28/20 20:35 Albumin/Globulin Ratio 0.8 (1.0-2.2) L 04/28/20:35 Lipase < 10 U/L (22-51) L 04/28/20 20:35 Urine Color YELLOW 04/28/20 23:03 Urine Clarity SL. CLOUDY (CLEAR) 04/28/20 23:03 Urine pH 5.0 PH (5.0-7.5) 04/28/20 23:03 Ur Specific [place] 1.015 (1.002-1.030) 04/28/20 23:03 Urine Protein 30 mg/dL (NEGATIVE) H 04/28/20 23:03 Urine Glucose (UA) 250 mg/dL (NEGATIVE) H 04/28/20 23:03 Urine Ketones NEGATIVE mg/dL (NEGATIVE) 04/28/20 23:03 Urine Occult Blood LARGE (NEGATIVE) H 04/28/20 23:03 Urine Nitrite NEGATIVE (NEGATIVE) 04/28/20 23: Urine Bilirubin NEGATIVE (NEGATIVE) 04/28/20 23: Urine Urobilinogen 0.2 (NORMAL) E.U./dL (NORMAL) 04/28/20 23:03 Ur Leukocyte Esterase SMALL (NEGATIVE) H 04/28/20 23:03 Urine RBC 6-10 /HPF (0-5) H 04/28/20 23:03 Urine WBC 11-25 /HPF (0-3) H 04/28/20 23:03 Ur Epithelial Cells FEW Renal Tubular /HPF (<= Few) 04/28/20 23:03 Ur Squamous Epith Cells RARE Squamous (<= Few) 04/28/20 23:03 Amorphous Sediment Few /LPF 04/28/20 23:03 Urine Bacteria Many /HPF (None Seen) H 04/28/20 23:03 Ur Microscopic Review INDICATED 04/28/20 23:03 Urine Culture Comments INDICATED 04/28/20 23: Nasal Screen MRSA (PCR) NEGATIVE (NEGATIVE) 04/28/20 23:29 Last Dose Date UNKNOWN 04/30/20 05:10 Last Dose Time UNKNOWN 04/30/20 05:10 Digoxin 0.2 ng/mL 04/30/20 05:10 Serum Ketones NEGATIVE (NEGATIVE) 04/28/20 20:35 Sepsis Event Note (H) - Evaluation Current Stage of Sepsis: Sepsis Possible source of Sepsis: positive: Genitourinary - Sepsis Criteria Sepsis Criteria: Recorded Heart Rate greater than 90 bpm, WBC count greater than 12,000 or less than 4000
[2020-05-01] MEDS: HYDROmorphone 0.5 MG/0.5 ML SYRINGE IVP PRN (18:48)
[2020-05-02] MEDS: SODIUM CHLORIDE FLUSH 0.9% 10 ML SYRINGE IVP SCH ×3 (00:56→15:18)
[2020-05-02] MEDS: ACETAMINOPHEN 325 MG TABLET PO PRN ×4 (01:12→23:12)
[2020-05-02] MEDS: LINEZOLID 600 MG/300 ML 600 MG/300 ML BAG IV SCH ×2 (01:13→14:53)
[2020-05-02] MEDS: oxyCODONE 5 MG TABLET PO PRN ×5 (01:13→23:12)
[2020-05-02] MEDS: DILTIAZEM 125 MG in DEXTROSE 5% 100 ML IV SCH ×3 (01:17→19:30)
[2020-05-02 04:55] LABS: BASOPHILS % (AUTO) 0.6 %; EOSINOPHILS % (AUTO) 0.2 %; HGB - HEMOGLOBIN 9.7 g/dL (14.0-18.0); MEAN CORPUSCULAR HEMOGLOBIN 31.6 pg (27.0-31.0); MEAN CORPUSCULAR HGB CONC 33.8 g/dL (32.0-36.0); MEAN CORPUSCULAR VOLUME 93.5 fL (80.0-94.0); MEAN PLATELET VOLUME 10.4 fL (7.4-11.4); MONOCYTES % (AUTO) 4.7 %; PLT - PLATELET COUNT 179 10^3/uL (130-450); RED BLOOD COUNT 3.07 10^6/uL (4.70-6.10); RED CELL DISTRIBUTION WIDTH 13.3 % (12.0-15.0); WHITE BLOOD COUNT 22.6 x10^3/uL (4.8-10.8)
[2020-05-02] MEDS: SODIUM CHLORIDE 0.9% 1,000 ML IV SCH ×3 (04:55→14:53)
[2020-05-02 05:00] LABS: INR 2.4 (0.8-1.2)
[2020-05-02 05:01] LABS: ABNORMAL LYMPHS % (MANUAL) 0 %
[2020-05-02 05:07] LABS: ALBUMIN 1.9 g/dL (3.2-5.5); CALCIUM 7.5 mg/dL (8.5-10.3); CREATININE 1.4 mg/dL (0.6-1.2); MAGNESIUM 1.8 mg/dL (1.7-2.8); PHOSPHORUS 2.5 mg/dL (2.5-4.6)
[2020-05-02 05:22] LABS: BAND NEUTROPHILS % (MANUAL) 24 %; LYMPHOCYTES # (MANUAL) 1.4 10^3/uL (1.5-3.5); LYMPHOCYTES % (MANUAL) 6 %; MONOCYTES # (MANUAL) 0.2 10^3/uL (0.0-1.0)
[2020-05-02 05:23] LABS: DIFFERENTIAL COMMENT MANUAL DIFFERENTIAL; PLATELET ESTIMATE, MANUAL NORMAL (130-450,000) (NORMAL); RBC MORPHOLOGY (MULTIPLE) NORMAL APPEARANCE (NORMAL)
[2020-05-02] MEDS: PANTOPRAZOLE 40 MG VIAL IVP SCH (06:35)
[2020-05-02] MEDS: TAMSULOSIN 0.4 MG CAPSULE PO SCH (08:51)
[2020-05-02] MEDS: METOPROLOL TARTRATE 25 MG TABLET PO SCH ×3 (08:52→21:18)
[2020-05-02] MEDS: SENNA 8.6 MG TABLET PO SCH (08:52)
[2020-05-02] MEDS: polyethylene glycoL 3350 17 GM PACKET PO SCH (08:56)
[2020-05-02] MEDS: INSULIN ASPART 300 UNIT/3 ML PEN SUBQ SCH ×7 (08:57→20:56)
[2020-05-02] MEDS: INSULIN GLARGINE 300 UNIT/3 ML PEN SUBQ SCH ×2 (09:00→20:55)
[2020-05-02 13:23] LABS: BILIRUBIN,URINE NEGATIVE (NEGATIVE); GLUCOSE, URINE (UA) 250 mg/dL (NEGATIVE); KETONES,URINE (UA) NEGATIVE (NEGATIVE); LEUKOCYTE ESTERASE, URINE SMALL (NEGATIVE); NITRITE,URINE NEGATIVE (NEGATIVE); OCCULT BLOOD,URINE MODERATE (NEGATIVE); PROTEIN,URINE NEGATIVE (NEGATIVE); UROBILINOGEN,URINE 0.2 (NORMAL) E.U./dL (NORMAL)
[2020-05-02 13:24] LABS: CLARITY,URINE CLEAR (CLEAR)
[2020-05-02 13:34] LABS: BACTERIA,URINE Few /HPF (None Seen); SQUAMOUS EPITHELIAL CELL,UR NONE SEEN (<= Few)
[2020-05-02] MEDS: HYDROmorphone 0.5 MG/0.5 ML SYRINGE IVP PRN (15:17)
[2020-05-02] MEDS: WARFARIN 5 MG TABLET PO SCH (15:19)
[2020-05-02] MEDS ORDERED: FUROSEMIDE 20 MG/2 ML VIAL IVP STA (15:25)
--- NOTE | 2020-05-02 15:46 | PROVIDER PROGRESS NOTE ---
Subjective - Prog Note Date Prog Note Date: 05/02/20 Prog Note Time: 15:41 - Subjective Pt reports feeling: No change Subjective: This morning and this afternoon he is really not working with physical therapy due to pain in both legs. The left leg hurts more than the right leg. Initially he keeps on saying "it is my knee, it is my knee". He will yell so loudly that his yelling echoes down the ICU hallway. He says that the pain is behind both knees. Goes down the back of each calf. He continues to be tachycardic with his atrial fibrillation. He is on diltiazem at 15 mg an hour. At home he was on atenolol and digoxin. Dr. Orosco, hospitalist prior to this day, was going to start him on metoprolol and asked that I do that today. And possibly consider resuming his digoxin.He denies chest pain, shortness of breath. His misery comes from his leg pain, and having to bend his legs/knees for physical therapy. The overall story is a gentleman with diabetes, hypertension, atrial fibrillation who is 6 foot 8 inches tall. Hikes quite a bit. Is already had 1 knee replacement and is due for another repeat knee replacement. He presents as complications of his benign prostatic hypertrophy requiring intermittent strai ght cath. He became so weak with infection that he fell on both knees and had to come to the hospital. The theory is that he developed a UTI, pyelonephritis with septic shock that brought him in. His urine was thick and white when he came in. He is grown out MRSA and strep out of his urine, MRSA out of his blood. Orthopedics is seen him for his elbow where he fell and hurt it. He is on IV Zyvox. During the stay his diabetes has been very uncontrolled with an insulin now required. In the outpatient setting he was on Januvia, glimepiride, and metformin. Glycosylated hemoglobin is 7.8%. Current Medications - Current Medications Current Medications: Active Medications Acetaminophen (Tylenol) 650 mg PO Q6HR PRN PRN Reason: Pain 1 to 4 Last Admin: 05/02/20 11:50 Dose: 650 mg Documented by: Furosemide (Lasix Inj 20mg Vial) 20 mg IVP DAILY [facility] Hydromorphone HCl (Dilaudid Inj Syringe) 0.5 mg IVP Q2H PRN PRN Reason: PAIN Last Admin: 05/02/20 15:17 Dose: 0.5 mg Documented by: Diltiazem HCl 125 mg/ Dextrose 125 mls @ 5 mls/hr IV .Q25H [facility]; Protocol Last Admin: 05/02/20 10:11 Dose: 15 mg/hr, 15 mls/hr Documented by: Linezolid (Zyvox 600 Mg/300 Ml) 600 mg in 300 mls @ 300 mls/hr IV Q12H [facility] Last Admin: 05/02/20 14:53 Dose: 300 mls/hr Documented by: Insulin Aspart (Novolog) 3 - 11 unit SUBQ 0800,1200,1700,2100 [facility]; Protocol Last Admin: 05/02/20 12:14 Dose: 5 unit Documented by: Insulin Aspart (Novolog) 5 unit SUBQ TIDWM [facility]; Protocol Last Admin: 05/02/20 12:16 Dose: 2 unit Documented by: Insulin Glargine (Lantus Solostar) 15 unit SUBQ BID [facility] Last Admin: 05/02/20 09:00 Dose: 15 unit Documented by: Lorazepam (Ativan) 1 mg PO QPM PRN PRN Reason: Insomnia Metoprolol Tartrate (Lopressor) 25 mg PO BID [facility] Last Admin: 05/02/20 08:52 Dose: 25 mg Documented by: Ondansetron HCl (Zofran Inj) 4 mg IVP Q6HR PRN PRN Reason: Nausea / Vomiting Oxycodone HCl (Roxicodone) 5 mg PO Q4HR PRN PRN Reason: PAIN Last Admin: 05/02/20 11:51 Dose: 5 mg Documented by: Pantoprazole Sodium (Protonix) 40 mg IVP QDAC [facility] Last Admin: 05/02/20 06:35 Dose: 40 mg Documented by: Polyethylene Glycol (Miralax) 17 gm PO DAILY [facility] Last Admin: 05/02/20 08:56 Dose: 17 gm Documented by: Senna (Senokot) 8.6 - 17.2 mg PO DAILY [facility] Last Admin: 05/02/20 08:52 Dose: 8.6 mg Documented by: Sodium Chloride (Normal Saline Flush 0.9%) 10 ml IVP 0100,0900,1700 [facility] Last Admin: 05/02/20 15:18 Dose: 10 ml Documented by: Sodium Chloride (Normal Saline Flush 0.9%) 10 ml IVP PRN PRN PRN Reason: NEEDED PER PROVIDER ORDERS Last Admin: 04/29/20 06:24 Dose: 10 ml Documented by: Tamsulosin HCl (Flomax) 0.4 mg PO DAILY [facility] Last Admin: 05/02/20 08:51 Dose: 0.4 mg Documented by: Warfarin Sodium (Coumadin) 5 mg PO QDWARFARIN [facility] Last Admin: 05/02/20 15:19 Dose: 5 mg Documented by: Digoxin 125 mcg PO DAILY 04/29/20 Glimepiride 8 mg PO DAILY 04/29/20 Metformin HCl 1,000 mg PO BID 04/29/20 SITagliptin [Januvia] 100 mg PO DAILY 04/29/20 Simvastatin 20 mg PO QPM 04/29/20 Tamsulosin [Flomax] 0.4 mg PO DAILY 04/29/20 Warfarin Sodium 5 mg PO MOFR 04/29/20 Warfarin Sodium 7.5 mg PO SUTUWETHSA 04/29/20 atenoloL [Atenolol] 100 mg PO DAILY 04/29/20 Objective - Vital Signs/Intake & Output Reviewed Vital Signs: Yes Vital Signs: Vital Signs Temp Pulse Resp BP Pulse Ox 05/02/20 15:00 121 H 28 H 125/83 H 94 05/02/20 14:00 121 H 28 H 125/83 H 94 05/02/20 13:00 117 H 28 H 124/83 H 98 05/02/20 12:00 37.2 C 114 H 27 H 111/78 97 Intake & Output: Intake & Output 04/29/20 04/30/20 05/01/20 05/02/20 23:59 23:59 23:59 23:59 Intake Total 91509.417 8400 7621.083 7498.417 Output Total 2796 3571 7612 3600 Balance 5807.417 6156 496.518 8359.417 - Objective General Appearance: positive: Alert, Severe distress (from pain in his knees, popliteal fossa specifically that radiates down both calves.) Eyes Bilateral: positive: PERRL, EOMI ENT: positive: Pharynx nml Neck: positive: No JVD Cardiovascular: positive: Irregularly irregular, Tachycardia, Systolic murmur. negative: Gallop/S4, Friction rub Abdomen: positive: Non-tender, No organomegaly, Nml bowel sounds, No distention Skin: positive: Warm, Dry Extremities: positive: Pedal edema, Joint swelling (right knee?left knee. Hurts to move his elbow which is bandaged.) Neurologic/Psychiatric: positive: Oriented x3, CN's nml (2-12), Motor nml, Other (From a musculoskeletal movement perspective, however, he cannot sit up in bed to touch his knees for me to tell me where it hurts. He needs me to push the button to elevate the head of the bed so that he does not have to sit up. And then he can barely touches knees. He puts his hands on his anter) - Lab Results Fish Bones: 05/02/20 04:45 05/02/20 04:45 Other Labs: Lab Results x24hrs 05/02/20 05/02/20 05/02/20 Range/Units 12:47 11:49 07:58 WBC (4.8-10.8) x10^3/uL RBC (4.70-6.10) 10^6/uL Hgb (14.0-18.0) g/dL Hct (42.0-52.0) % MCV (80.0-94.0) fL MCH (27.0-31.0) pg MCHC (32.0-36.0) g/dL RDW (12.0-15.0) % Plt Count (130-450) 10^3/uL MPV (7.4-11.4) fL Neut # (Auto) Lymph # (Auto) [place] # (Auto) Eos # (Auto) Baso # (Auto) Absolute Nucleated RBC Total Counted Band Neuts % (Manual) (0 - 10) % Abnorm Lymph % (Manual) % Nucleated RBC % Neutrophils # (Manual) (1.5-6.6) 10^3/uL Lymphocytes # (Manual) (1.5-3.5) 10^3/uL Monocytes # (Manual) (0.0-1.0) 10^3/uL Eosinophils # (Manual) (0-0.7) 10^3/uL Basophils # (Manual) (0-0.1) 10^3/uL Differential Comment Platelet Estimate (NORMAL) RBC Morph Micro Appear (NORMAL) PT (9.9-12.6) secs INR (0.8-1.2) Sodium (135-145) mmol/L Potassium (3.5-5.0) mmol/L Chloride (101-111) mmol/L Carbon Dioxide (21-32) mmol/L Anion Gap (6-13) BUN (6-20) mg/dL Creatinine (0.6-1.2) mg/dL Estimated GFR (MDRD) (>89) Glucose (70-100) mg/dL POC Whole Bld Glucose 214 H 198 H (70 - 100) mg/dL Calcium (8.5-10.3) mg/dL Phosphorus (2.5-4.6) mg/dL Magnesium (1.7-2.8) mg/dL Albumin (3.2-5.5) g/dL Urine Color YELLOW Urine Clarity CLEAR (CLEAR) Urine pH 6.0 (5.0-7.5) PH Ur Specific [place] <=1.005 (1.002-1.030) Urine Protein NEGATIVE (NEGATIVE) mg/dL Urine Glucose (UA) 250 H (NEGATIVE) mg/dL Urine Ketones NEGATIVE (NEGATIVE) mg/dL Urine Occult Blood MODERATE H (NEGATIVE) Urine Nitrite NEGATIVE (NEGATIVE) Urine Bilirubin NEGATIVE (NEGATIVE) Urine Urobilinogen 0.2 (NORMAL) (NORMAL) E.U./dL Ur Leukocyte Esterase SMALL H (NEGATIVE) Urine RBC 11-25 H (0-5) /HPF Urine WBC 6-10 H (0-3) /HPF Ur Squamous Epith Cells NONE SEEN (<= Few) Urine Bacteria Few (None Seen) /HPF Urine Culture Comments INDICATED 05/02/20 05/02/20 05/02/20 Range/Units 04:45 04:45 04:45 WBC 22.6 H (4.8-10.8) x10^3/uL RBC 3.07 L (4.70-6.10) 10^6/uL Hgb 9.7 L (14.0-18.0) g/dL Hct 28.7 L (42.0-52.0) % MCV 93.5 (80.0-94.0) fL MCH 31.6 H (27.0-31.0) pg MCHC 33.8 (32.0-36.0) g/dL RDW 13.3 (12.0-15.0) % Plt Count 179 (130-450) 10^3/uL MPV 10.4 (7.4-11.4) fL Neut # (Auto) Not Reportable Lymph # (Auto) Not Reportable [place] # (Auto) Not Reportable Eos # (Auto) Not Reportable Baso # (Auto) Not Reportable Absolute Nucleated RBC Not Reportable Total Counted 100 Band Neuts % (Manual) 24 H (0 - 10) % Abnorm Lymph % (Manual) 0 % Nucleated RBC % Not Reportable Neutrophils # (Manual) 21.0 H (1.5-6.6) 10^3/uL Lymphocytes # (Manual) 1.4 L (1.5-3.5) 10^3/uL Monocytes # (Manual) 0.2 (0.0-1.0) 10^3/uL Eosinophils # (Manual) 0.0 (0-0.7) 10^3/uL Basophils # (Manual) 0.0 (0-0.1) 10^3/uL Differential Comment MANUAL DIFFERENTIAL Platelet Estimate NORMAL (130-450,000) (NORMAL) RBC Morph Micro Appear NORMAL APPEARANCE (NORMAL) PT 26.0 H (9.9-12.6) secs INR 2.4 H (0.8-1.2) Sodium 129 L (135-145) mmol/L Potassium 4.0 (3.5-5.0) mmol/L Chloride 103 (101-111) mmol/L Carbon Dioxide 17 L (21-32) mmol/L Anion Gap 9.0 (6-13) BUN 47 H (6-20) mg/dL Creatinine 1.4 H (0.6-1.2) mg/dL Estimated GFR (MDRD) 50 L (>89) Glucose 223 H (70-100) mg/dL POC Whole Bld Glucose (70 - 100) mg/dL Calcium 7.5 L (8.5-10.3) mg/dL Phosphorus 2.5 (2.5-4.6) mg/dL Magnesium 1.8 (1.7-2.8) mg/dL Albumin 1.9 L (3.2-5.5) g/dL Urine Color Urine Clarity (CLEAR) Urine pH (5.0-7.5) PH Ur Specific [place] (1.002-1.030) Urine Protein (NEGATIVE) mg/dL Urine Glucose (UA) (NEGATIVE) mg/dL Urine Ketones (NEGATIVE) mg/dL Urine Occult Blood (NEGATIVE) Urine Nitrite (NEGATIVE) Urine Bilirubin (NEGATIVE) Urine Urobilinogen (NORMAL) E.U./dL Ur Leukocyte Esterase (NEGATIVE) Urine RBC (0-5) /HPF Urine WBC (0-3) /HPF Ur Squamous Epith Cells (<= Few) Urine Bacteria (None Seen) /HPF Urine Culture Comments 05/01/20 Range/Units 20:46 WBC (4.8-10.8) x10^3/uL RBC (4.70-6.10) 10^6/uL Hgb (14.0-18.0) g/dL Hct (42.0-52.0) % MCV (80.0-94.0) fL MCH (27.0-31.0) pg MCHC (32.0-36.0) g/dL RDW (12.0-15.0) % Plt Count (130-450) 10^3/uL MPV (7.4-11.4) fL Neut # (Auto) Lymph # (Auto) [place] # (Auto) Eos # (Auto) Baso # (Auto) Absolute Nucleated RBC Total Counted Band Neuts % (Manual) (0 - 10) % Abnorm Lymph % (Manual) % Nucleated RBC % Neutrophils # (Manual) (1.5-6.6) 10^3/uL Lymphocytes # (Manual) (1.5-3.5) 10^3/uL Monocytes # (Manual) (0.0-1.0) 10^3/uL Eosinophils # (Manual) (0-0.7) 10^3/uL Basophils # (Manual) (0-0.1) 10^3/uL Differential Comment Platelet Estimate (NORMAL) RBC Morph Micro Appear (NORMAL) PT (9.9-12.6) secs INR (0.8-1.2) Sodium (135-145) mmol/L Potassium (3.5-5.0) mmol/L Chloride (101-111) mmol/L Carbon Dioxide (21-32) mmol/L Anion Gap (6-13) BUN (6-20) mg/dL Creatinine (0.6-1.2) mg/dL Estimated GFR (MDRD) (>89) Glucose (70-100) mg/dL POC Whole Bld Glucose 247 H (70 - 100) mg/dL Calcium (8.5-10.3) mg/dL Phosphorus (2.5-4.6) mg/dL Magnesium (1.7-2.8) mg/dL Albumin (3.2-5.5) g/dL Urine Color Urine Clarity (CLEAR) Urine pH (5.0-7.5) PH Ur Specific [place] (1.002-1.030) Urine Protein (NEGATIVE) mg/dL Urine Glucose (UA) (NEGATIVE) mg/dL Urine Ketones (NEGATIVE) mg/dL Urine Occult Blood (NEGATIVE) Urine Nitrite (NEGATIVE) Urine Bilirubin (NEGATIVE) Urine Urobilinogen (NORMAL) E.U./dL Ur Leukocyte Esterase (NEGATIVE) Urine RBC (0-5) /HPF Urine WBC (0-3) /HPF Ur Squamous Epith Cells (<= Few) Urine Bacteria (None Seen) /HPF Urine Culture Comments Sepsis Event Note (H) - Evaluation Current Stage of Sepsis: Sepsis Possible source of Sepsis: positive: Genitourinary - Sepsis Criteria Sepsis Criteria: Recorded Heart Rate greater than 90 bpm, WBC count greater than 12,000 or less than 4000 Assessment/Plan - Problem List (1) Bilateral calf pain Impression: And edema, and knee pain in a patient who says it hurts to flex his knees. He can extend but barely flex. He yells in pain. Plan: Rule out DVT Stat bilateral ultrasounds (2) Atrial fibrillation with RVR Impression: This morning of added Lopressor at Dr. Orosco's request. We will also add digoxin. Hopefully start to wean off the diltiazem to control his rate. Echocardiogram done April 30 shows underlying A. fib. Mild concentric left ventricular hypertrophy. Ejection fraction 60 to 65%. Moderate right ventricular enlargement. Right ventricular systolic function mildly impaired. Severe increased left atrial volume index. Severe right atrial enlargement. Mild tric uspid regurgitation. Moderate abnormal right heart pressures. RVSP at rest is 57 mmHg. The inferior vena cava is dilated. No evidence of vegetations. Consider CHERI if clinically indicated. Plan: Lopressor and digoxin today (3) Bacteremia due to methicillin resistant Staphylococcus aureus Impression: I spoke to pharmacy today. Zyvox is being used for bacteremia. They are debating whether p.o. would be recommended. They are asking me to hold off for right now until they figure out if p.o. Zyvox would be good enough for his UTI. At this time, there is no suspicion of vegetations on echo. Suspect that his bacteremia is from either the elbow, or induced from self-catheterization causing UTI and Leonard.However, Initial blood cultures in April 28 were positive for MRSA. He was treated with Rocephin and vancomycin, then Zosyn, and most recently Zyvox. In spite of this, repeat blood cultures on May 01 are still positive for gram-positive cocci. Plan: Discuss with [facility] infectious disease service via [email or web address]. [facility] did call. They recommend 2 weeks of IV vancomycin therapy, not Zyvox. They also warned me to make sure he does not have prostatitis. If he has proctitis he will need 6 weeks of IV vancomycin. Recheck CT pelvis with contrast looking for prosthetic abscess. If I am not finding any source of the MRSA bacteremia, no prosthetic abscess, etc., he will probably need a CHERI. (4) Complicated UTI (urinary tract infection) Impression: Present on admission. Due to the patient self-catheterization at home. Cultures have grown out MRSA and beta-hemolytic strep group B. Plan: Per pharmacy recommendations, he was changed from Rocephin and vancomycin that was initial treatment, Zosyn was the second treatment, and now on Zyvox. (5) Acute kidney injury Impression: He has been on 200 cc an hour since he came in. April 29 he was +5807. On April 30 he was +6156. May 01 he was +741. Today, so far, he is +4198 cc. Plan: Continue to monitor BUN and creatinine. Today's creatinine is 1.4 and improved from yesterday's 1.9. Stop IV fluids since he is taking enough p.o. Lasix 20 mg IV push now. (6) Sepsis Impression: While his sepsis criteria resolved, the patient still continues to have an elevated white cell count, that is continuing to rise. Continued bacteremia in spite of antibiotic therapy. Tachycardia may be or may not be part of this pr oblem. Tachycardia may be more due to A. fib that is uncontrolled versus a PE. Nevertheless, I am alarmed that he still has a white cell count, and continue to grow bacteria in his blood. Plan: PICC line for prolonged antibiotic therapy once I speak to [facility] infectious disease service. Call has been placed and hopefully they will call me back expeditiously. Qualifiers: Sepsis type: methicillin susceptible Staphylococcus aureus Sepsis acute organ dysfunction status: without acute organ dysfunction Qualified Code(s): A41.01 - Sepsis due to Methicillin susceptible Staphylococcus aureus (7) Supratherapeutic INR Impression: INR started at 7.0. Then went up to 8.9. Coumadin is been held and then resumed on . Today is his 3rd dose. He is 2.4 today. At home, he is on Coumadin 5 mg Thursday and Thursday, 7.5 mg on Thursday and Thursday. Plan: Considering the sharp rise and he is on antibiotics, reduce Coumadin to 2.5 alternating with 5 mg and continue to monitor INR (8) Diabetes mellitus Impression: On Lantus 15 units subcu twice daily. Plus NovoLog 5 units subcu with meals. And sliding scale. May 01 his morning glucose was 334 then 307 then 292 and then 247. Today glucose is 198, then 214. Plan: Increase Lantus to 17 units subcu twice daily. Qualifiers: Diabetes mellitus type: type 2 Diabetes mellitus [facility] insulin use: without [facility] use Diabetes mellitus complication status: without complication Qualified Code(s): E11.9 - Type 2 diabetes mellitus without complications
--- NOTE | 2020-05-02 16:53 | Ultrasound Report ---
PROCEDURE: Duplex Ext Veins Bilateral INDICATIONS: HUSEYIN ALVAREZ TECHNIQUE: Real-time imaging, as well as color and pulse Doppler interrogation, were performed of the deep veins of both legs from the inguinal ligament to the popliteal fossa. COMPARISON: None FINDINGS: The deep veins are normally compressible, and free of intraluminal thrombus. Color and pu lse Doppler demonstrate normal phasic intravascular flow. There is normal augmentation response to d istal compression maneuver. IMPRESSION: No deep venous thrombosis. Reviewed by: Arminda Stacy MD on 05/02/2020 4:52 PM PDT Approved by: Arminda Stacy MD on 05/02/2020 4:52 PM PDT Station ID: [id number]
[2020-05-02] MEDS ORDERED: IOVERSOL 320 100 ML VIAL IVP ONE ×2 (17:10→21:01)
[2020-05-02] MEDS ORDERED: VANCOMYCIN INJ 3 GM in SODIUM CHLORIDE 0.9% 500 ML IV SCH ×2 (18:00→19:00)
[2020-05-02] MEDS ORDERED: AMPICILLIN 2 GM in SODIUM CHLORIDE 0.9% MINIBAG 100 ML IV SCH (18:00)
--- NOTE | 2020-05-02 19:46 | CT Report ---
PROCEDURE: PELVIS W INDICATIONS: prostate abcess CONTRAST: IV CONTRAST: Optiray 320 ml: 100 PO CONTRAST: *NO PO CONTRAST TECHNIQUE: After the administration of oral contrast and intravenous contrast, 5 mm thick sections acquired from the iliac crests to the symphysis. 5 mm thick coronal and sagittal reformats were acquired. For ra diation dose reduction, the following was used: automated exposure control, adjustment of mA and/or kV according to patient size. COMPARISON: CT of abdomen and pelvis dated 04/30/2020 FINDINGS: Image quality: Diagnostic. Significant beam hardening artifact from left hip prosthesis is seen.. Peritoneum and bowel: Contrast enhanced bowel loops demonstrate normal wall thickness and caliber. No free fluid or air. Fecal impaction in the distal sigmoid colon and rectum is seen. Genitourinary: Stranding in visualized left lower pole kidney is again seen. There is minimal bladder wall thickening, no discrete bladder wall mass. Lundberg catheter is noted within bladder lumen. No mitch ss abnormality is seen in the prostate gland. Nodes and vessels: No iliac, pelvic, or inguinal adenopathy. Iliac vessels demonstrate normal size and enhancement. Bones: No suspicious bony lesions. Degenerative disc disease in visualized lower lumbar spine is se en. Osteophytic changes are noted throughout bony pelvis. There is prior left hip arthroplasty. No gr oss hardware consultation. Miscellaneous: No inguinal hernias. IMPRESSION: 1. Again noted is perinephric fat stranding and visualized lower pole left kidney. No obstructing ure teral stone is seen. Mild diffuse bladder wall thickening, no discrete bladder wall mass. Lundberg fitz ter within the bladder lumen. Finding is suggestive of pyelonephritis and mild cystitis. 2. No evidence of prostate abscess collection. 3. No bowel obstruction. No pelvic free fluid or free air. Mild fecal impaction in the distal sigmoid colon and rectum. Reviewed by: Saw Brandon MD on 05/02/2020 7:45 PM PDT Approved by: Saw Brandon MD on 05/02/2020 7:45 PM PDT Station ID: [id number]
[2020-05-03] MEDS: AMPICILLIN 2 GM in SODIUM CHLORIDE 0.9% MINIBAG 100 ML IV SCH ×4 (00:54→18:10)
[2020-05-03] MEDS: SODIUM CHLORIDE FLUSH 0.9% 10 ML SYRINGE IVP SCH ×3 (00:55→17:02)
[2020-05-03] MEDS: DILTIAZEM 125 MG in DEXTROSE 5% 100 ML IV SCH ×3 (03:04→20:01)
[2020-05-03] MEDS: oxyCODONE 5 MG TABLET PO PRN ×5 (03:07→21:24)
[2020-05-03 03:45] LABS: BASOPHILS % (AUTO) 0.6 %; EOSINOPHILS % (AUTO) 0.3 %; HGB - HEMOGLOBIN 9.9 g/dL (14.0-18.0); LYMPHOCYTES % (AUTO) 3.8 %; MEAN CORPUSCULAR HEMOGLOBIN 31.4 pg (27.0-31.0); MEAN CORPUSCULAR HGB CONC 33.7 g/dL (32.0-36.0); MEAN CORPUSCULAR VOLUME 93.3 fL (80.0-94.0); MEAN PLATELET VOLUME 10.3 fL (7.4-11.4); MONOCYTES % (AUTO) 5.6 %; NEUTROPHILS % (AUTO) 79.8 %; PLT - PLATELET COUNT 219 10^3/uL (130-450); RED BLOOD COUNT 3.15 10^6/uL (4.70-6.10); RED CELL DISTRIBUTION WIDTH 13.7 % (12.0-15.0); WHITE BLOOD COUNT 27.2 x10^3/uL (4.8-10.8)
[2020-05-03 03:55] LABS: ABNORMAL LYMPHS % (MANUAL) 0 %
[2020-05-03 03:58] LABS: INR 2.8 (0.8-1.2); PT - PROTHROMBIN TIME 29.9 secs (9.9-12.6)
[2020-05-03 04:03] LABS: CALCIUM 7.5 mg/dL (8.5-10.3); CREATININE 1.4 mg/dL (0.6-1.2); MAGNESIUM 1.7 mg/dL (1.7-2.8); PHOSPHORUS 2.8 mg/dL (2.5-4.6)
[2020-05-03 04:24] LABS: ALBUMIN 1.9 g/dL (3.2-5.5)
[2020-05-03 04:25] LABS: FOLATE 4.68 ng/mL (5.90 - >24.8)
[2020-05-03 04:50] LABS: BAND NEUTROPHILS % (MANUAL) 12 %; DIFFERENTIAL COMMENT MANUAL DIFFERENTIAL; LYMPHOCYTES # (MANUAL) 0.8 10^3/uL (1.5-3.5); LYMPHOCYTES % (MANUAL) 3 %; METAMYELOCYTES % (MANUAL) 2 %; MONOCYTES # (MANUAL) 0.5 10^3/uL (0.0-1.0); MYELOCYTES % (MANUAL) 2 %; PLATELET ESTIMATE, MANUAL NORMAL (130-450,000) (NORMAL); RBC MORPHOLOGY (MULTIPLE) NORMAL APPEARANCE (NORMAL)
[2020-05-03] MEDS: MAGNESIUM OXIDE 400 MG TABLET PO SCH ×2 (06:40→12:04)
[2020-05-03] MEDS: SODIUM CHLORIDE FLUSH 0.9% 10 ML SYRINGE IVP PRN (06:41)
[2020-05-03] MEDS: PANTOPRAZOLE 40 MG VIAL IVP SCH (06:41)
[2020-05-03] MEDS: FUROSEMIDE 20 MG/2 ML VIAL IVP SCH (08:13)
[2020-05-03] MEDS: polyethylene glycoL 3350 17 GM PACKET PO SCH (08:24)
[2020-05-03] MEDS: SENNA 8.6 MG TABLET PO SCH (08:25)
[2020-05-03] MEDS: TAMSULOSIN 0.4 MG CAPSULE PO SCH (08:25)
[2020-05-03] MEDS: METOPROLOL TARTRATE 25 MG TABLET PO SCH (08:26)
[2020-05-03] MEDS: INSULIN ASPART 300 UNIT/3 ML PEN SUBQ SCH ×7 (08:28→21:17)
[2020-05-03] MEDS: VANCOMYCIN INJ 1.75 GM in SODIUM CHLORIDE 0.9% 500 ML IV SCH ×2 (08:30→21:19)
[2020-05-03] MEDS: FOLIC ACID 1 MG TABLET PO SCH (08:38)
[2020-05-03] MEDS: INSULIN GLARGINE 300 UNIT/3 ML PEN SUBQ SCH ×2 (08:44→21:17)
[2020-05-03] MEDS: HYDROmorphone 0.5 MG/0.5 ML SYRINGE IVP PRN (12:37)
--- NOTE | 2020-05-03 13:26 | PHARMACY PROGRESS NOTE ---
- Therapy Status Vancomycin regimen day #: 1 Therapy status: Awaiting steady state Basis for treatment: Culture result Treatment indication: Bacteremia from UTI Trough goal: 15-20 Concurrent antibiotics: Vancomycin & Ampicillin - BRYSON Risk Risk level for Acute Kidney Injury: High Acute Kidney Injury risk factors: Other nephrotoxic agents, Wt >100kg or BMI >40, Baseline BUN:SCr >20:1, Goal trough >15, Diabetes, Admission to ICU, Sepsis - Monitoring and Recommendation Clinical response to treatment: I&O Previous 24 hours 05/01/20 05/02/20 05/03/20 23:59 23:59 23:59 Intake Total 7621.083 21750.917 2855.75 Output Total 6880 6675 2980 Balance 365.946 4121.917 -124.25 Lab Results 05/03/20 05/02/20 05/01/20 03:30 04:45 04:44 BUN 40 H 47 H 60 H Creatinine 1.4 H 1.4 H 1.9 H Estimated GFR (MDRD) 50 L 50 L 35 L 04/30/20 04/29/20 04/29/20 05:10 12:05 04:50 BUN 61 H 53 H 55 H Creatinine 2.2 H 2.1 H 2.0 H Estimated GFR (MDRD) 30 L 31 L 33 L 04/28/20 20:35 BUN 59 H Creatinine 2.4 H Estimated GFR (MDRD) 27 L Cultures 05/01/20 19:40 Blood - Right Arm Blood Culture - Preliminary Staphylococcus Aureus 05/01/20 19:50 Blood - Right Hand Blood Culture - Preliminary 05/02/20 12:47 Urine,Catheterized Urine Culture - Preliminary CULTURE IN PROGRESS. RESULTS TO FOLLOW. 04/28/20 22:30 Blood Blood Culture - Preliminary Methicillin Resist S. Aureus 04/28/20 23:03 Urine,Catheterized Urine Culture - Final Methicillin Resist S. Aureus Beta Hemolytic Strep Group B 04/28/20 22:30 Blood Blood Culture - Final Methicillin Resist S. Aureus Monitoring plan: Daily serum creatinine, Draw trough early, Suggest ongoing fluid replacement Next trough due prior to maintenance dose #: 3 (concerns regarding fluctuating renal function justify early (non-steady state) level to determine whether therapyp is supratherapeutic at present dosing) Next trough due (date/time): 05/04/20 @ 0630 Areas for additional monitoring: Acute Kidney Injury, C. difficile infection risk reduction Pharmacy recommendation: Continue current regime (Patient has not been responding to previous antibiotic therapies as expected - concerns regarding an undiscovered additional source of infection. New cultures pending.)
[2020-05-03] MEDS: WARFARIN 5 MG TABLET PO SCH (14:45)
--- NOTE | 2020-05-03 14:49 | PROVIDER PROGRESS NOTE ---
Subjective - Prog Note Date Prog Note Date: 05/03/20 Prog Note Time: 15:03 - Subjective Pt reports feeling: No change Subjective: He still in pain when he tries to move his legs. But not nearly as much as he was yesterday. Yesterday he was in so much pain he would be yelling every time someone touched his legs or try to flex and extend his knees or rotate his ankles. He is not doing that today. He seems a little confused. He recognizes me as his doctor but cannot be sure. He tells me the mask really make it hard for him to identify people. He gets part of my name correct. Today is the third day of taking care of him. Current Medications - Current Medications Current Medications: Active Medications Acetaminophen (Tylenol) 650 mg PO Q6HR PRN PRN Reason: Pain 1 to 4 Last Admin: 05/02/20 23:12 Dose: 650 mg Documented by: Digoxin (Lanoxin Inj) 250 mcg IVP Q6H [facility] Stop: 05/04/20 09:01 Folic Acid () 1 mg PO DAILY [facility] Last Admin: 05/03/20 08:38 Dose: 1 mg Documented by: Furosemide (Lasix Inj 20mg Vial) 20 mg IVP DAILY [facility] Last Admin: 05/03/20 08:13 Dose: 20 mg Documented by: Hydromorphone HCl (Dilaudid Inj Syringe) 0.5 mg IVP Q2H PRN PRN Reason: PAIN Last Admin: 05/03/20 12:37 Dose: 0.5 mg Documented by: Diltiazem HCl 125 mg/ Dextrose 125 mls @ 5 mls/hr IV .Q25H [facility]; Protocol Last Titration: 05/03/20 15:00 Dose: 15 mg/hr, 15 mls/hr Documented by: Vancomycin HCl 1.75 gm/ Sodium (Chloride) 500 mls @ 250 mls/hr IV Q12H [facility] Last Infusion: 05/03/20 10:30 Dose: Infused Documented by: Ampicillin Sodium 2 gm/ Sodium (Chloride) 100 mls @ 100 mls/hr IV Q6H [facility] Last Infusion: 05/03/20 13:00 Dose: Infused Documented by: Insulin Aspart (Novolog) 3 - 11 unit SUBQ 0800,1200,1700,2100 [facility]; Protocol Last Admin: 05/03/20 12:07 Dose: 3 unit Documented by: Insulin Aspart (Novolog) 5 unit SUBQ TIDWM [facility]; Protocol Last Admin: 05/03/20 12:07 Dose: 5 unit Documented by: Insulin Glargine (Lantus Solostar) 17 unit SUBQ BID [facility] Last Admin: 05/03/20 08:44 Dose: 17 unit Documented by: Lorazepam (Ativan) 1 mg PO QPM PRN PRN Reason: Insomnia Metoprolol Tartrate (Lopressor) 50 mg PO BID [facility] Ondansetron HCl (Zofran Inj) 4 mg IVP Q6HR PRN PRN Reason: Nausea / Vomiting Oxycodone HCl (Roxicodone) 5 mg PO Q4HR PRN PRN Reason: PAIN Last Admin: 05/03/20 12:34 Dose: 5 mg Documented by: Pantoprazole Sodium (Protonix) 40 mg IVP QDAC [facility] Last Admin: 05/03/20 06:41 Dose: 40 mg Documented by: Polyethylene Glycol (Miralax) 17 gm PO DAILY [facility] Last Admin: 05/03/20 08:24 Dose: 17 gm Documented by: Senna (Senokot) 8.6 - 17.2 mg PO DAILY [facility] Last Admin: 05/03/20 08:25 Dose: 8.6 mg Documented by: Sodium Chloride (Normal Saline Flush 0.9%) 10 ml IVP 0100,0900,1700 [facility] Last Admin: 05/03/20 08:13 Dose: 10 ml Documented by: Sodium Chloride (Normal Saline Flush 0.9%) 10 ml IVP PRN PRN PRN Reason: NEEDED PER PROVIDER ORDERS Last Admin: 05/03/20 06:41 Dose: 10 ml Documented by: Tamsulosin HCl (Flomax) 0.4 mg PO DAILY [facility] Last Admin: 05/03/20 08:25 Dose: 0.4 mg Documented by: Warfarin Sodium (Coumadin) 2.5 mg PO Q2D [facility] Warfarin Sodium (Coumadin) 5 mg PO Q2D [facility] Digoxin 125 mcg PO DAILY 04/29/20 Glimepiride 8 mg PO DAILY 04/29/20 Metformin HCl 1,000 mg PO BID 04/29/20 SITagliptin [Januvia] 100 mg PO DAILY 04/29/20 Simvastatin 20 mg PO QPM 04/29/20 Tamsulosin [Flomax] 0.4 mg PO DAILY 04/29/20 Warfarin Sodium 5 mg PO MOFR 04/29/20 Warfarin Sodium 7.5 mg PO SUTUWETHSA 04/29/20 atenoloL [Atenolol] 100 mg PO DAILY 04/29/20 Objective - Vital Signs/Intake & Output Reviewed Vital Signs: Yes Vital Signs: Vital Signs Pulse Resp BP Pulse Ox 05/03/20 14:00 132 H 23 106/70 97 05/03/20 13:00 129 H 16 124/69 98 05/03/20 12:00 121 H 19 127/78 96 05/03/20 11:00 115 H 16 120/65 95 Intake & Output: Intake & Output 04/30/20 05/01/20 05/02/20 05/03/20 23:59 23:59 23:59 23:59 Intake Total 8400 7621.083 37877.917 3955.75 Output Total 2244 6880 6675 3440 Balance 6156 986.903 9018.917 515.75 - Objective General Appearance: positive: No acute distress, Alert, Other (Face is flushed, and eyes are little glazed. Highest temperature is 37.7 today.) Eyes Bilateral: positive: PERRL, EOMI ENT: positive: No signs of dehydration Neck: positive: No JVD. negative: Stiff neck Respiratory: positive: Chest non-tender, Other (97 to 98% on room air.). negative: Wheezes, Rales, Rhonchi Cardiovascular: positive: Irregularly irregular. negative: Gallop/S4, Friction rub Abdomen: positive: Non-tender, No organomegaly, Nml bowel sounds, No distention Skin: positive: Warm, Dry, Other (Flushed face.) Extremities: positive: Full ROM, Pedal edema. negative: Joint swelling, Vera's sign/cords Neurologic/Psychiatric: positive: Oriented x3, CN's nml (2-12), Motor nml (He was spontaneously rolled over in bed, pulling blankets, bend his legs at the hip s and knees on his own. However if we actively do that for him he does not like to be touched and it hurts. He feeds himself. Brings glasses of water to his mouth. There is no tremulousness, ataxia, or tremors.). negative: Mood/affect nml (Every once while there is a statement that is irrational, does not make any sense. He then quickly corrects himself and expresses what he wants in a lucid manner.) - Lab Results Fish Bones: 05/03/20 03:35 05/03/20 03:30 Other Labs: Lab Results x24hrs 05/03/20 05/03/20 05/03/20 Range/Units 08:26 03:35 03:30 WBC 27.2 H (4.8-10.8) x10^3/uL RBC 3.15 L (4.70-6.10) 10^6/uL Hgb 9.9 L (14.0-18.0) g/dL Hct 29.4 L (42.0-52.0) % MCV 93.3 (80.0-94.0) fL MCH 31.4 H (27.0-31.0) pg MCHC 33.7 (32.0-36.0) g/dL RDW 13.7 (12.0-15.0) % Plt Count 219 (130-450) 10^3/uL MPV 10.3 (7.4-11.4) fL Neut # (Auto) Not Reportable Lymph # (Auto) Not Reportable [place] # (Auto) Not Reportable Eos # (Auto) Not Reportable Baso # (Auto) Not Reportable Absolute Nucleated RBC Not Reportable Total Counted 100 Band Neuts % (Manual) 12 H (0 - 10) % Abnorm Lymph % (Manual) 0 % Metamyelocytes % 2 H ( - 0) % Myelocytes % 2 H ( - 0) % Nucleated RBC % Not Reportable Neutrophils # (Manual) 24.8 H (1.5-6.6) 10^3/uL Lymphocytes # (Manual) 0.8 L (1.5-3.5) 10^3/uL Monocytes # (Manual) 0.5 (0.0-1.0) 10^3/uL Eosinophils # (Manual) 0.0 (0-0.7) 10^3/uL Basophils # (Manual) 0.0 (0-0.1) 10^3/uL Differential Comment MANUAL DIFFERENTIAL Platelet Estimate NORMAL (130-450,000) (NORMAL) RBC Morph Micro Appear NORMAL APPEARANCE (NORMAL) PT (9.9-12.6) secs INR (0.8-1.2) Sodium (135-145) mmol/L Potassium (3.5-5.0) mmol/L Chloride (101-111) mmol/L Carbon Dioxide (21-32) mmol/L Anion Gap (6-13) BUN (6-20) mg/dL Creatinine (0.6-1.2) mg/dL Estimated GFR (MDRD) (>89) Glucose (70-100) mg/dL POC Whole Bld Glucose 202 H (70 - 100) mg/dL Calcium (8.5-10.3) mg/dL Phosphorus (2.5-4.6) mg/dL Magnesium (1.7-2.8) mg/dL Iron (45-182) ug/dL TIBC (250-450) ug/dL % Saturation (20-50) % Transferrin (180-329) mg/dL Albumin (3.2-5.5) g/dL Vitamin B12 2097 H (180-914) pg/mL Folate 4.68 L (5.90 - >24.8) ng/mL 05/03/20 05/03/20 05/02/20 Range/Units 03:30 03:30 20:50 WBC (4.8-10.8) x10^3/uL RBC (4.70-6.10) 10^6/uL Hgb (14.0-18.0) g/dL Hct (42.0-52.0) % MCV (80.0-94.0) fL MCH (27.0-31.0) pg MCHC (32.0-36.0) g/dL RDW (12.0-15.0) % Plt Count (130-450) 10^3/uL MPV (7.4-11.4) fL Neut # (Auto) Lymph # (Auto) [place] # (Auto) Eos # (Auto) Baso # (Auto) Absolute Nucleated RBC Total Counted Band Neuts % (Manual) (0 - 10) % Abnorm Lymph % (Manual) % Metamyelocytes % ( - 0) % Myelocytes % ( - 0) % Nucleated RBC % Neutrophils # (Manual) (1.5-6.6) 10^3/uL Lymphocytes # (Manual) (1.5-3.5) 10^3/uL Monocytes # (Manual) (0.0-1.0) 10^3/uL Eosinophils # (Manual) (0-0.7) 10^3/uL Basophils # (Manual) (0-0.1) 10^3/uL Differential Comment Platelet Estimate (NORMAL) RBC Morph Micro Appear (NORMAL) PT 29.9 H (9.9-12.6) secs INR 2.8 H (0.8-1.2) Sodium 126 L (135-145) mmol/L Potassium 3.7 (3.5-5.0) mmol/L Chloride 98 L (101-111) mmol/L Carbon Dioxide 18 L (21-32) mmol/L Anion Gap 10.0 (6-13) BUN 40 H (6-20) mg/dL Creatinine 1.4 H (0.6-1.2) mg/dL Estimated GFR (MDRD) 50 L (>89) Glucose 234 H (70-100) mg/dL POC Whole Bld Glucose 251 H (70 - 100) mg/dL Calcium 7.5 L (8.5-10.3) mg/dL Phosphorus 2.8 (2.5-4.6) mg/dL Magnesium 1.7 (1.7-2.8) mg/dL Iron 24 L (45-182) ug/dL TIBC 148 L (250-450) ug/dL % Saturation 16 L (20-50) % Transferrin 106 L (180-329) mg/dL Albumin 1.9 L (3.2-5.5) g/dL Vitamin B12 (180-914) pg/mL Folate (5.90 - >24.8) ng/mL 05/02/20 Range/Units 16:54 WBC (4.8-10.8) x10^3/uL RBC (4.70-6.10) 10^6/uL Hgb (14.0-18.0) g/dL Hct (42.0-52.0) % MCV (80.0-94.0) fL MCH (27.0-31.0) pg MCHC (32.0-36.0) g/dL RDW (12.0-15.0) % Plt Count (130-450) 10^3/uL MPV (7.4-11.4) fL Neut # (Auto) Lymph # (Auto) [place] # (Auto) Eos # (Auto) Baso # (Auto) Absolute Nucleated RBC Total Counted Band Neuts % (Manual) (0 - 10) % Abnorm Lymph % (Manual) % Metamyelocytes % ( - 0) % Myelocytes % ( - 0) % Nucleated RBC % Neutrophils # (Manual) (1.5-6.6) 10^3/uL Lymphocytes # (Manual) (1.5-3.5) 10^3/uL Monocytes # (Manual) (0.0-1.0) 10^3/uL Eosinophils # (Manual) (0-0.7) 10^3/uL Basophils # (Manual) (0-0.1) 10^3/uL Differential Comment Platelet Estimate (NORMAL) RBC Morph Micro Appear (NORMAL) PT (9.9-12.6) secs INR (0.8-1.2) Sodium (135-145) mmol/L Potassium (3.5-5.0) mmol/L Chloride (101-111) mmol/L Carbon Dioxide (21-32) mmol/L Anion Gap (6-13) BUN (6-20) mg/dL Creatinine (0.6-1.2) mg/dL Estimated GFR (MDRD) (>89) Glucose (70-100) mg/dL POC Whole Bld Glucose 251 H (70 - 100) mg/dL Calcium (8.5-10.3) mg/dL Phosphorus (2.5-4.6) mg/dL Magnesium (1.7-2.8) mg/dL Iron (45-182) ug/dL TIBC (250-450) ug/dL % Saturation (20-50) % Transferrin (180-329) mg/dL Albumin (3.2-5.5) g/dL Vitamin B12 (180-914) pg/mL Folate (5.90 - >24.8) ng/mL Sepsis Event Note (H) - Evaluation Current Stage of Sepsis: Resolved Possible source of Sepsis: positive: Genitourinary - Sepsis Criteria Sepsis Criteria: Recorded Heart Rate greater than 90 bpm, WBC count greater than 12,000 or less than 4000 Assessment/Plan - Problem List (1) Atrial fibrillation with RVR Impression: Lopressor and digoxin added May 02. Hopefully start to wean off the diltiazem to control his rate. So far no success in that he continues to be tac hycardic. Heart rate is anywhere from 103-132. Blood pressure is occasionally low at 106/70. O2 sats are maintaining at 98 to 97% on room air. Echocardiogram done April 30 shows underlying A. fib. Mild concentric left ventricular hypertrophy. Ejection fraction 60 to 65%. Moderate right ventricular enlargement. Right ventricular systolic function mildly impaired. Severe increased left atrial volume index. Severe right atrial enlargement. Mild tricuspid regurgitation. Moderate abnormal right heart pressures. RVSP at rest is 57 mmHg. The inferior vena cava is dilated. No evidence of vegetations. Consider CHERI if clinically indicated. Plan: Lopressor added yesterday @ 25 mg po bid. Increase to 50 mg po bid Add digoxin today with 0.25 mg q6h for 4 doses only Once rate is <110 consistently, stop dilt drip. (3) Bacteremia due to methicillin resistant Staphylococcus aureus Impression: Cased discussed with pharmacist 05/02. Zyvox was being used for bacteremia. They are debating whether p.o. would be recommended. They asked me to hold off for right now until they figure out if p.o. Zyvox would be good enough for his UTI. At this time, there is no suspicion of vegetations on echo. Suspect that his bacteremia is from either the elbow, or induced from self-catheterization causing UTI and Pyelo. Initial blood cultures on April 28 were positive for MRSA. He was treated with Rocephin and vancomycin, then Zosyn, and most recently Zyvox. In spite of this, repeat blood cultures on May 01 are still positive for gram-positive cocci. Case discussed with [facility] infectious disease service via Med [facility] line on 05/02. They recommended 2 weeks of IV vancomycin therapy, not Zyvox. They also warned me to make sure he does not have prostatitis. If he has proctitis he will need 6 weeks of IV vancomycin. As such a CT the pelvis was done looking for prosthetic abscess. None was present. Has been on vancomycin again and is now day to 2. Repeat blood cultures tomorrow. If they are still positive, patient may need to be transferred for specialty evaluation and treatment. He may need a transesophageal echo. (4) Complicated UTI (urinary tract infection) Impression: Present on admission. Due to the patient self-catheterization at home. Cultures have grown out MRSA and beta-hemolytic strep group B. Plan: Per pharmacy recommendations, he was changed from Rocephin and vancomycin that was initial treatment, Zosyn was the second treatment, and then on Zyvox. Switched back to vancomycin May 02. Day #2. (5) Acute kidney injury Impression: He was on 200 cc an hour since he came in. April 29 he was +[id number]. On April 30 he was +6156. May 01 he was +741. May 02 +3990 cc. Today +530 cc.Creatinine started at 2.4. Then went to 1.9. He has been 1.4 yesterday and today. IV fluids of 200 cc an hour were stopped May 02.1 dose of Lasix 20 mg was given. Plan: Continue to monitor BUN and creatinine. (6) Sepsis Impression: While his sepsis criteria resolved, the patient still continues to have an elevated white cell count, that is continuing to rise. April 29>15,000, April 30>16,000, May 01 >24,000, May 02 >22,000, today 27,000. Continued bacteremia in spite of antibiotic therapy. Tachycardia may be or may not be part of this problem. Tachycardia may be more due to A. fib that is uncontrolled versus a PE. Nevertheless, I am alarmed that he still has a white cell count, and continue to grow bacteria in his blood. Plan: PICC line for prolonged antibiotic therapy . Anesthesia call. Since he has current adequate access, this will be placed tomorrow. Plan for at least 14 days of IV vancomycin right now. Qualifiers: Sepsis type: methicillin susceptible Staphylococcus aureus Sepsis acute organ dysfunction status: without acute organ dysfunction Qualified Code(s): A41.01 - Sepsis due to Methicillin susceptible Staphylococcus aureus (7) Supratherapeutic INR Impression: INR started at 7.0. Then went up to 8.9. Coumadin is been held and then resumed on . Today is his 4th dose. He is 2.8 today. At home, he is on Coumadin 5 mg Thursday and Thursday, 7.5 mg on Thursday and Thursday. Plan: Considering the sharp rise and he is on antibiotics, reduce Coumadin to 2.5 alternating with 5 mg and continue to monitor INR. That order put in place for 2.5 to start tomorrow. follow INR daily (8) Diabetes mellitus Impression: On Lantus 15 units subcu twice daily. Plus NovoLog 5 units subcu with meals. And sliding scale. May 01 his morning glucose was 334 then 307 then 292 and then 247. Lantus increased to 17 units twice daily. Yesterday glucose was 214, 251, and today he is 202, 173. Plan: Keep at this dose for now. Qualifiers: Diabetes mellitus type: type 2 Diabetes mellitus director long term care insulin use: without director long term care use Diabetes mellitus complication status: without complication Qualified Code(s): E11.9 - Type 2 diabetes mellitus without complications
[2020-05-03] MEDS: DIGOXIN 500 MCG/2 ML AMP IVP SCH ×2 (16:07→21:21)
[2020-05-03] MEDS: METOPROLOL TARTRATE 50 MG TABLET PO SCH (21:17)
[2020-05-03] MEDS: ACETAMINOPHEN 325 MG TABLET PO PRN (21:18)
[2020-05-04] MEDS: AMPICILLIN 2 GM in SODIUM CHLORIDE 0.9% MINIBAG 100 ML IV SCH ×3 (00:39→12:15)
[2020-05-04] MEDS: HYDROmorphone 0.5 MG/0.5 ML SYRINGE IVP PRN ×2 (02:06→13:35)
[2020-05-04] MEDS: SODIUM CHLORIDE FLUSH 0.9% 10 ML SYRINGE IVP SCH ×3 (02:06→17:22)
[2020-05-04] MEDS: DILTIAZEM 125 MG in DEXTROSE 5% 100 ML IV SCH ×2 (03:44→12:19)
[2020-05-04] MEDS: DIGOXIN 500 MCG/2 ML AMP IVP SCH ×2 (03:45→10:37)
[2020-05-04] MEDS: ACETAMINOPHEN 325 MG TABLET PO PRN ×2 (03:46→10:28)
[2020-05-04] MEDS: oxyCODONE 5 MG TABLET PO PRN ×2 (03:46→10:30)
[2020-05-04 05:09] LABS: VBG PH 7.419 (7.31-7.41)
[2020-05-04 05:14] LABS: ALBUMIN 1.6 g/dL (3.2-5.5); MAGNESIUM 1.6 mg/dL (1.7-2.8); PHOSPHORUS 3.8 mg/dL (2.5-4.6)
[2020-05-04] MEDS: SODIUM CHLORIDE FLUSH 0.9% 10 ML SYRINGE IVP PRN (06:11)
[2020-05-04] MEDS: PANTOPRAZOLE 40 MG VIAL IVP SCH (06:11)
[2020-05-04 07:38] LABS: BASOPHILS % (AUTO) 0.1 %; EOSINOPHILS # (AUTO) 0.1 10^3/uL (0.0-0.7); EOSINOPHILS % (AUTO) 0.5 %; HGB - HEMOGLOBIN 10.5 g/dL (14.0-18.0); LYMPHOCYTES # (AUTO) 1.2 10^3/uL (1.5-3.5); LYMPHOCYTES % (AUTO) 4.7 %; MEAN CORPUSCULAR HEMOGLOBIN 32.2 pg (27.0-31.0); MEAN CORPUSCULAR HGB CONC 33.8 g/dL (32.0-36.0); MEAN CORPUSCULAR VOLUME 95.4 fL (80.0-94.0); MEAN PLATELET VOLUME 10.5 fL (7.4-11.4); MONOCYTES # (AUTO) 1.8 10^3/uL (0.0-1.0); MONOCYTES % (AUTO) 6.8 %; NEUTROPHILS # (AUTO) 20.3 10^3/uL (1.5-6.6); NEUTROPHILS % (AUTO) 78.3 %; PLT - PLATELET COUNT 272 10^3/uL (130-450); RED BLOOD COUNT 3.26 10^6/uL (4.70-6.10); RED CELL DISTRIBUTION WIDTH 13.5 % (12.0-15.0); WHITE BLOOD COUNT 25.9 x10^3/uL (4.8-10.8)
[2020-05-04 07:44] LABS: CALCIUM 7.4 mg/dL (8.5-10.3); CREATININE 1.5 mg/dL (0.6-1.2)
[2020-05-04] MEDS: INSULIN ASPART 300 UNIT/3 ML PEN SUBQ SCH ×6 (08:04→17:14)
[2020-05-04 08:09] LABS: RBC MORPHOLOGY (MULTIPLE) 1+ POLYCHROMASIA (NORMAL)
--- NOTE | 2020-05-04 08:49 | XRAY Report ---
PROCEDURE: Elbow 3 View RT INDICATIONS: Pain. Erythema. TECHNIQUE: 3 views of the elbow were acquired. COMPARISON: 04/28/2020 similar images FINDINGS: Bones: No fractures or dislocations but the study is somewhat limited by significant degenerative os teoarthritis superimposed especially at the olecranon fossa posteriorly. No suspicious bony lesions. Soft tissues: No elbow joint effusion. No suspicious soft tissue calcifications. IMPRESSION: No trauma found. No joint effusion identified. Persistent symptoms appear present given the recent co mparison plain films from 04/28/2020 covering the same area. Depending on the clinical status follow-u p by MR scanning may be warranted and if infection is suspected contrast-enhanced MR scanning should be obtained. Reviewed by: Adolph Arraega MD on 05/04/2020 8:47 AM PDT Approved by: Adolph Arreaga MD on 05/04/2020 8:47 AM PDT Station ID: [id number]
[2020-05-04 09:44] LABS: VANCOMYCIN,TROUGH 25.8 ug/mL (10.0-20.0)
[2020-05-04] MEDS: MAGNESIUM OXIDE 400 MG TABLET PO SCH ×2 (10:20→13:34)
[2020-05-04] MEDS: FOLIC ACID 1 MG TABLET PO SCH (10:20)
[2020-05-04] MEDS: FUROSEMIDE 20 MG/2 ML VIAL IVP SCH (10:21)
[2020-05-04] MEDS: METOPROLOL TARTRATE 50 MG TABLET PO SCH (10:22)
[2020-05-04] MEDS: SENNA 8.6 MG TABLET PO SCH (10:27)
[2020-05-04] MEDS: TAMSULOSIN 0.4 MG CAPSULE PO SCH (10:29)
[2020-05-04] MEDS: polyethylene glycoL 3350 17 GM PACKET PO SCH (10:30)
[2020-05-04] MEDS: VANCOMYCIN INJ 1.75 GM in SODIUM CHLORIDE 0.9% 500 ML IV SCH (10:31)
[2020-05-04] MEDS: INSULIN GLARGINE 300 UNIT/3 ML PEN SUBQ SCH (10:44)
--- NOTE | 2020-05-04 12:57 | ANESTHESIA PROCEDURE NOTE ---
Anesth Central Line Template - Central Line Central Line Preparation: Consent Obtained, Time out completed, Ultrasound used, Sterile prep and drape Central line location: Left Basilic Central line type: PICC Single Lumen Central line catheter tip site resides: Superior vena cava (SVC) Central line aftercare: Secured, Placement confirmed, No complications, Bundle checklist complete, Pt tolerated well
--- NOTE | 2020-05-04 12:57 | XRAY Report ---
PROCEDURE: Chest for Line Placement INDICATIONS: line placement verification TECHNIQUE: One view of the chest was acquired. COMPARISON: 04/26/2020 FINDINGS: Surgical changes and devices: Left-sided PICC line tip is in low SVC/right atrium. Lungs and pleura: No pleural effusions or pneumothorax. Lungs are clear. Mediastinum: Mediastinal contours appear normal. Heart size is enlarged. Bones and chest wall: No suspicious bony lesions. Overlying soft tissues appear unremarkable. IMPRESSION: Left-sided PICC line tip is in lower SVC/right atrium. No focal infiltrate or pneumothorax. Reviewed by: Saw Brandon MD on 05/04/2020 12:56 PM PDT Approved by: Saw Brandon MD on 05/04/2020 12:56 PM PDT Station ID: [id number]
--- NOTE | 2020-05-04 13:57 | PROVIDER PROGRESS NOTE ---
Subjective - Prog Note Date Prog Note Date: 05/04/20 Prog Note Time: 13:55 - Subjective Pt reports feeling: Improved (Subjectively patient and his daughter state that the right elbow is less red and less swollen than it was 3 dyas ago, following a fall onto his elbow asnoted earlier in Dr. Rolle's initial consult note.) Objective - Vital Signs/Intake & Output Vital Signs: Vital Signs x48h Temp Pulse Pulse Resp BP BP BP 05/04/20 13:00 114 H 23 108/50 L 05/04/20 12:00 36.7 C 113 H 26 H 05/04/20 11:00 122 H 22 106/71 05/04/20 10:37 128 H 05/04/20 10:22 128/80 05/04/20 10:00 130 H 24 128/80 05/04/20 09:00 122 H 23 112/64 05/04/20 08:00 36.5 C 131 H 24 144/76 H 05/04/20 07:00 128 H 19 126/89 H 05/04/20 06:00 113 H 22 139/106 H Pulse Ox 05/04/20 13:00 96 05/04/20 12:00 96 05/04/20 11:00 97 05/04/20 10:37 05/04/20 10:22 05/04/20 10:00 96 05/04/20 09:00 97 05/04/20 08:00 96 05/04/20 07:00 97 05/04/20 06:00 96 Intake & Output: Intake & Output 05/01/20 05/02/20 05/03/20 05/04/20 23:59 23:59 23:59 23:59 Intake Total 7621.083 76495.917 6156.750 3556.00 Output Total 6880 6675 5605 3755 Balance 885.940 0122.917 551.750 -199.00 - Lab Results Fish Bones: 05/04/20 04:55 05/04/20 04:25 Other Labs: Lab Results x24hrs 05/04/20 05/04/20 05/04/20 Range/Units 11:55 09:07 07:33 WBC (4.8-10.8) x10^3/uL RBC (4.70-6.10) 10^6/uL Hgb (14.0-18.0) g/dL Hct (42.0-52.0) % MCV (80.0-94.0) fL MCH (27.0-31.0) pg MCHC (32.0-36.0) g/dL RDW (12.0-15.0) % Plt Count (130-450) 10^3/uL MPV (7.4-11.4) fL Neut # (Auto) (1.5-6.6) 10^3/uL Lymph # (Auto) (1.5-3.5) 10^3/uL [place] # (Auto) (0.0-1.0) 10^3/uL Eos # (Auto) (0.0-0.7) 10^3/uL Baso # (Auto) (0.0-0.1) 10^3/uL Absolute Nucleated RBC x10^3/uL Nucleated RBC % /100WBC Manual Slide Review RBC Morph Micro Appear (NORMAL) VBG pH (7.31-7.41) Ionized Calcium (1.15-1.33) mmol/L Sodium (135-145) mmol/L Potassium (3.5-5.0) mmol/L Chloride (101-111) mmol/L Carbon Dioxide (21-32) mmol/L Anion Gap (6-13) BUN (6-20) mg/dL Creatinine (0.6-1.2) mg/dL Estimated GFR (MDRD) (>89) Glucose (70-100) mg/dL POC Whole Bld Glucose 184 H 129 H (70 - 100) mg/dL Calcium (8.5-10.3) mg/dL Phosphorus (2.5-4.6) mg/dL Magnesium (1.7-2.8) mg/dL Albumin (3.2-5.5) g/dL Last Dose Date 05/03/20 Last Dose Time 2321 Vancomycin Trough 25.8 H* (10.0-20.0) ug/mL 05/04/20 05/04/20 05/04/20 Range/Units 04:55 04:25 04:25 WBC 25.9 H (4.8-10.8) x10^3/uL RBC 3.26 L (4.70-6.10) 10^6/uL Hgb 10.5 L (14.0-18.0) g/dL Hct 31.1 L (42.0-52.0) % MCV 95.4 H (80.0-94.0) fL MCH 32.2 H (27.0-31.0) pg MCHC 33.8 (32.0-36.0) g/dL RDW 13.5 (12.0-15.0) % Plt Count 272 (130-450) 10^3/uL MPV 10.5 (7.4-11.4) fL Neut # (Auto) 20.3 H (1.5-6.6) 10^3/uL Lymph # (Auto) 1.2 L (1.5-3.5) 10^3/uL [place] # (Auto) 1.8 H (0.0-1.0) 10^3/uL Eos # (Auto) 0.1 (0.0-0.7) 10^3/uL Baso # (Auto) 0.0 (0.0-0.1) 10^3/uL Absolute Nucleated RBC 0.00 x10^3/uL Nucleated RBC % 0.0 /100WBC Manual Slide Review Indicated RBC Morph Micro Appear 1+ POLYCHROMASIA (NORMAL) VBG pH 7.419 H (7.31-7.41) Ionized Calcium 1.04 L (1.15-1.33) mmol/L Sodium 127 L (135-145) mmol/L Potassium 3.5 (3.5-5.0) mmol/L Chloride 96 L (101-111) mmol/L Carbon Dioxide 21 (21-32) mmol/L Anion Gap 10.0 (6-13) BUN 40 H (6-20) mg/dL Creatinine 1.5 H (0.6-1.2) mg/dL Estimated GFR (MDRD) 46 L (>89) Glucose 112 H (70-100) mg/dL POC Whole Bld Glucose (70 - 100) mg/dL Calcium 7.4 L (8.5-10.3) mg/dL Phosphorus (2.5-4.6) mg/dL Magnesium (1.7-2.8) mg/dL Albumin (3.2-5.5) g/dL Last Dose Date Last Dose Time Vancomycin Trough (10.0-20.0) ug/mL 05/04/20 05/03/20 05/03/20 Range/Units 04:25 21:15 16:57 WBC (4.8-10.8) x10^3/uL RBC (4.70-6.10) 10^6/uL Hgb (14.0-18.0) g/dL Hct (42.0-52.0) % MCV (80.0-94.0) fL MCH (27.0-31.0) pg MCHC (32.0-36.0) g/dL RDW (12.0-15.0) % Plt Count (130-450) 10^3/uL MPV (7.4-11.4) fL Neut # (Auto) (1.5-6.6) 10^3/uL Lymph # (Auto) (1.5-3.5) 10^3/uL [place] # (Auto) (0.0-1.0) 10^3/uL Eos # (Auto) (0.0-0.7) 10^3/uL Baso # (Auto) (0.0-0.1) 10^3/uL Absolute Nucleated RBC x10^3/uL Nucleated RBC % /100WBC Manual Slide Review RBC Morph Micro Appear (NORMAL) VBG pH (7.31-7.41) Ionized Calcium (1.15-1.33) mmol/L Sodium (135-145) mmol/L Potassium (3.5-5.0) mmol/L Chloride (101-111) mmol/L Carbon Dioxide (21-32) mmol/L Anion Gap (6-13) BUN (6-20) mg/dL Creatinine (0.6-1.2) mg/dL Estimated GFR (MDRD) (>89) Glucose (70-100) mg/dL POC Whole Bld Glucose 114 H 162 H (70 - 100) mg/dL Calcium (8.5-10.3) mg/dL Phosphorus 3.8 (2.5-4.6) mg/dL Magnesium 1.6 L (1.7-2.8) mg/dL Albumin 1.6 L (3.2-5.5) g/dL Last Dose Date Last Dose Time Vancomycin Trough (10.0-20.0) ug/mL - Diagnostic Imaging Diagnostic Imaging Comments: XR shows no fracture/dislocation nor periosteal reaction. No posterior fat pad sx. - Other Results/Comments Other Results/Comments: EXAM: Right elbow: Superficial blister is open at apex of elbow. Palpable cystic mass - ballotable. Non tender with surounding erythema. No lymphangitis. PROM: 40-50 degrees of motion without pain. Sepsis Event Note (H) - Evaluation Current Stage of Sepsis: Resolved Possible source of Sepsis: positive: Genitourinary - Sepsis Criteria Sepsis Criteria: Recorded Heart Rate greater than 90 bpm, WBC count greater than 12,000 or less than 4000 Assessment/Plan - Problem List (1) Swelling of right elbow joint Impression: Probable slowing resolving cellulitis about right elbow Early Right olecranon bursitis PLAN: Continue antibiotics. Sling to limit elbow motion.
[2020-05-04] MEDS ORDERED: WARFARIN 2.5 MG TABLET PO SCH (14:00)
[2020-05-04] MEDS ORDERED: MIN OIL/DIMETHICON/COCONUT OIL 92 GM TUBE TOP PRN (15:41)
[2020-05-04] MEDS ORDERED: VANCOMYCIN INJ 1.25 GM in SODIUM CHLORIDE 0.9% 250 ML IV SCH ×5 (16:00→21:00)
--- NOTE | 2020-05-04 16:29 | DISCHARGE SUMMARY ---
Discharge Summary Admit Date: 04/28/20 Discharge Date: 05/04/20 Discharging Provider: Lizeth Weston MD Primary Care Provider: Mitchell Marie MD [facility] Internal Medicine Code Status: Attempt Resuscitation Condition at Discharge: Fair Discharge Disposition: 02 Transfer Acute Care Hosp [facility] - DIAGNOSES Discharge Diagnoses with Status of Each Condition: 1. Sepsis with UTI 2. MRSA UTI (complicated with pyelonepritis) present on admission 3. Group B strep UTI present on admission 4. MRSA bacteremia present on admission 5. Benign prostatic hypertrophy with lower urinary tract symptoms of obstruction 6. UTI due to catheter, present on admission 7. Acute on chronic kidney insufficiency, stage III 7. Chronic atrial fibrillation with RVR 9. Supratherapeutic INR 10. Type 2 diabetes mellitus, without complications, uncontrolled with hyperglycemia, not on long-term insulin 11. Hypertension 12. Hyponatremia 13. Cor pulmonale on echo 14. Anemia, nonspecific 15. Right elbow swelling due to blunt trauma 16. Olecranon bursitis, right elbow 17. Fall at home 18. Metabolic encephalopathy 19. Decubitus ulcers, Stage 2, both left and right mid buttocks along crevice, dime sized, not present on admission - HPI History of Present Illness: Patient is a 69-year-old male with history of diabetes mellitus, hypertension, atrial fibrillation on digoxin and Coumadin, BPH and hyperlipidemia who presented to the ED after a mechanical fall. This happened today around 2 PM. He has problems with his left knee and is due to undergo surgery in the near future. Today he bumped his knee going through a narrow doorway and fell. He did not hit his head or pass out. As a result of pain in his right elbow, left knee and right knee he was brought to the ED for evaluation. The right elbow appears inflamed and is warm to touch. Images done of his knee and elbow were unremarkable. However it was advised that if symptoms are significant/ persistent then CT scan should be considered. The patient has also been experiencing chills for the past 5-6 days. He has BPH and "bladder issues". He self caths 4 times daily. He sees a urologist by name Dr. Torrez at [facility]. And has an appointment on 06 May 2020. He was found to be in a rapid irregularly irregular rhythm with a heart rate as high as 130s to 140s in the ED. Further work-up included CBC which showed a WBC of 18. He also had creatinine level of 2.4, blood glucose 400. A UA was strongly indicated of of a UTI. The urine was cloudy with 11-25 WBCs and many bacteria. At bedside he denied any chest pain, dyspnea, abdominal pain, nausea or vomiting. As a result of his clinical findings he is being admitted for further treatment. Past Medical History Cardiovascular: reports: Hypertension, High cholesterol, Atrial fibrillation Respiratory: reports: None Neuro: reports: Peripheral neuropathy Endocrine/Autoimmune: reports: Type 2 diabetes GI: reports: None : reports: Benign prostate hypertrophy, Other HEENT: reports: None Psych: reports: None Musculoskeletal: reports: Osteoarthritis Derm: reports: None MRSA Hx?: No Other Past Medical History: Hx of melanoma - Past Surgical History General: reports: Appendectomy Ortho: reports: Hip replacement (left), Knee replacement (right) HEENT: reports: Tonsil/Adenoidectomy - CONSULTS | PROCEDURES Consultations: Orthopedics with Dr. Tommie Zhang and Dr. Rodriguez. Anesthesia for PICC line Procedures: 1. Head CT with no intracranial hemorrhage, no significant intracranial abnormality, likely venous lakes seen along the anterior right frontal bone. 2. Shoulder x-ray, left, without fractures or dislocations. Appropriate degenerative changes seen. 3. Knee x-ray with no acute fractures, healing fracture seen along the left lateral tibial plateau. Intact right knee hardware. Left knee degenerative changes seen prominent in the lateral femoral tibial compartment. Moderate left knee joint effusion seen. 4. Hip and pelvis plain film without acute fracture. Intact appearing left hip arthroplasty. 5. Right elbow x-ray done on admission showed focal chronic appearing irregularity of the right humeral neck. Remote well-corticated appearance. Age-appropriate degenerative changes. Repeat elbow done on day of discharge showed no trauma, no joint effusions. Persistent symptoms appear present and may be an MRI scanning would be warranted. If infection is suspected consider contrast-enhanced MRI. 6. Retroperitoneal ultrasound done for acute kidney injury showed enlarged lobulated kidneys, left worse than right. Lundberg catheter. No hydroureter. There is an abnormally prominent right proximal ureter measuring up to 3.[address] of right elbow showed elbow joint osteoarthritis. Old deformity involving the distal humeral shaft and proximal radial shaft neck. No acute elbow fracture or dislocation. No suspicious intraosseous lesion. Small amount of elbow joint effusion. 8. Abdomen pelvis and CT without contrast shows moderate stranding of the left kidney, more prominent than the right. Left kidney also appeared edematous with suspected mild hydronephrosis. Findings compatible with possible pyelonephritis. Cholelithiasis. Mild gaseous distention of the stomach. 9. Pelvis CT done to evaluate for prostate, with contrast showed the same perinephric fat stranding and visualized lower pole left kidney. No stones. No evidence of prostate abscess collection. No bowel pathology. 10. Venous Dopplers of both legs showed no deep venous thrombosis 11. PICC line placement day of discharge 12. Post PICC line chest x-ray shows no focal infiltrate or pneumothorax. 13. Blood cultures April 28 with MRSA 14. Urine culture April 28 with methicillin-resistant staph and beta-hemolytic group be strep 15. Blood cultures May 01 staph aureus, MSSA 16. Blood cultures done May 04 are pending 17. Echocardiogram done April 28 and May 04. First 1 was complete and the second 1 was limited. Underlying rhythm is A. fib. Mild concentric left ventricular hypertrophy. LVEF 65%. Moderate RVE. Right ventricular systolic function mildly impaired. Severe increased left atrial volume index. Severe right atrial and enlargement. Moderately abnormal right heart pressures. RVSP 57 mmHg. IVC is dilated. No evidence of vegetations. Second echo done for vegetations was also negative. - HOSPITAL COURSE Hospital Course: The patient was placed in the ICU because of need for monitoring for diltiazem drip to control his heart rate. He has chronic atrial fibrillation. He was already on Coumadin and atenolol and digoxin at home. He was not considered hemodynamically unstable but are policies prohibit drips on MedSurg unit. In spite of a diltiazem drip, addition of Lopressor and full loading of digoxin, the patient continues to be tachycardic. When at rest, pulse will drop down into the 90s or 100s but with agitation or with sitting up he goes to 120 and 180 respectively. Echocardiogram was done and he has no vegetations. Because he continued to have uncontrolled atrial fibrillation as well as bacteremia and elevated white cell count we repeated the echocardiogram, limited, today, and he does not have vegetations again. Ejection fraction is 60%. RVSP is 57 mmHg. To address his urinary tract infection seen in the emergency room, he was started on broad-spectrum antibiotic therapy. We attributed the UTI to his instrumentation for intermittent self caths due to benign prostatic hypertrophy. Treated with Rocephin, vancomycin. I am not clear why he was then changed to Zosyn and vancomycin. Then from that he was changed to Zyvox. This is once the blood cultures from April 28 were positive for MRSA and the urine was positive for MRSA and group B strep. Repeat blood cultures on May 01 were positive again. I reached out for consultation at [facility] ID med consult line, they recommended returning the patient back to vancomycin and keeping him on that. He would need a minimum of 2 weeks of antibiotic therapy. They also recommended a repeat CT of pelvis to look at his prostate to rule out prostate abscess. That was negative. In spite of therapy, the patient was not truly responding. While he was more awake and alert now and improved from the encephalopathy had an admission, he was not at baseline. He was irrational in his thought process, impulsive. Refusing to work with physical therapy, and refusing to let the nurses rotate him to prevent skin breakdown. He did develop mild skin breakdown in the left buttock area because of this. Even with his daughter at the bedside to control him into getting up, the patient would refuse to do so. The most we can get him up was to sit at the edge of the bed so that he could put his feet on the ground. He would only let us do this for 5 minutes at a time. I repeated his echocardiogram today looking for vegetations that may have developed and that was negative. I also reexamined his spine. I carefully pushed in all vertebral process from C-spine down to L-spine and there is no tenderness. I was attempting to find out if there was any other source of infection I was missing. He was also seen by orthopedic surgery. In his fall at home, he did land on his elbow. He was felt to have olecranon bursitis, and plain film was negative for fractures or osteo-. He was re-seen by orthopedic surgery today, and again they feel that he has baseline olecranon bursitis that is improved from admission and not the cause of his infection. His initial metabolic encephalopathy, and history of fall at home was addressed with a CT of the head on admission and that was negative. I attempted to repeat imaging with an MRI of the head today, but we cannot do it. The patient is 6 foot 8 inches tall and does not fit on our machine. Due to bilateral leg pain where he would yell so loudly that his yelling echoed down our hospital hallways into the next wing, I did a venous duplex study looking for DVTs. Venous duplex study was negative. From his fall at home, shoulder x-rays were negative, knee x-rays were negative, hip and pelvis x-rays were negative, and elbow x-ray twice was negative. At home his diabetes is controlled with glimepiride, Januvia and metformin. Here he required Lantus. Finally 17 units twice daily of Lantus with 5 units at each meal of short acting insulin plus sliding scale brought him under control. His sugars were at times reach over 350. On the day of discharge glucose was 114, 129, 184. Glycosylated hemoglobin at admission was 7.8%. We think that his diabetes is not controlled due to his infection. The patient has improved somewhat since admission, but not enough that I felt confident in our treatment choice. I am puzzled by the continued bacteremia in spite of adequate antibiotics. Once I realize that I could not image him on MRI it felt that it was time to transfer him higher level of care for work-up and treatment. We also felt that we were not having success in trying to prevent skin breakdown. He is a very tall man who refused to let us move him. In spite of multiple efforts between different nurses, myself, his daughter, and physical therapy he did not want to get up out of bed and was starting to have small dime sized ulcers of the right and left buttock, stage II, in the mid body area where he was bedbound. I spoke to Анна Vora since he and his daughter preferred transfer their due to Dr. Marie and Dr. Torrez. I spoke to the transfer center as well as Dr. Antwon Johnson. Dr. Johnson accepted the patient in transfer. He will be transferred with ALS. At discharge the patient was 36.7 temperature. Pulse 93. Blood pressure 91/65. Respirations 21 and 93% on room air. 6 foot 8 inches tall, 144 kg. He is oriented to place and person but not time. Speech is normal. Face is flushed. Body is deeply tanned from all of his days hiking outside. Neck is supple. No JVD or bruits. Lungs have diminished breath sounds at the bases, coarse upper airway sounds. But no increased respiratory effort, no complaints of shortness of breath. He has an irregular rate and rhythm that varies between being in the 90s to 160s. The abdomen is obese, soft, nontender. No organomegaly. Mid buttocks, right /left sides, show multiple small dime sized skin breakdown stage II. Legs were very edematous 2 days ago. He has been getting aggressive IV fluid resuscitation and I stopped IV fluids and gave him daily Lasix. His legs are much less edematous today than they were 2 days ago. Knees are without effusion. However, when you touch his calves, or attempted range of motion exercises by passive or active range of motion of the knees he will cry out in pain. Right elbow skin has diffuse large area where his skin peeled away after swelling resolved. Skin abrasion was present on admission. Neurologically he is alert, oriented to person and place but not time. Can be forgetful. Thought process appears irrational at times. Although he is completely dependent on the nurses, he refuses to let them sit him up, but he insists that he can stand up, walk home and get out of this place. He does not seem to recognize how disabled he is nor the fact that he is completely dependent on others for ADLs. Greater than 30 minutes was spent coordinating discharge. I have asked him to please contact us once he gets that a Анна Clementon to let us know what the heck made him so sick. - ALLERGIES Allergies/Adverse Reactions: Allergies Allergy/AdvReac Type Severity Reaction Status Date / Time lisinopril Allergy Unknown Headache Verified 04/28/20 20:23 - MEDICATIONS Home Medications: Ambulatory Orders Medication Instructions Recorded Confirmed Digoxin 125 mcg PO DAILY 04/29/20 04/29/20 Glimepiride 8 mg PO DAILY 04/29/20 04/29/20 Metformin HCl 1,000 mg PO BID 04/29/20 04/29/20 SITagliptin [Januvia] 100 mg PO DAILY 04/29/20 04/29/20 Simvastatin 20 mg PO QPM 04/29/20 04/29/20 Tamsulosin [Flomax] 0.4 mg PO DAILY 04/29/20 04/29/20 Warfarin Sodium 5 mg PO MOFR 04/29/20 05/01/20 Warfarin Sodium 7.5 mg PO SUTUWETHSA 04/29/20 05/01/20 atenoloL [Atenolol] 100 mg PO DAILY 04/29/20 04/29/20 - LABS Result Diagrams: 05/04/20 04:55 05/04/20 04:25 - SEPSIS Current Stage of Sepsis: Resolved Possible source of Sepsis: Genitourinary Sepsis Criteria: Recorded Heart Rate greater than 90 bpm, WBC count greater than 12,000 or less than 4000 - TIME SPENT Time Spent in Discharge (Minutes): 40
[2020-05-04 17:05] VITALS: BP 115/67
--- NOTE | 2020-05-04 17:45 | Discharge Plan ---
Discharge Plan Problem Reviewed?: Yes Disposition: 02 Transfer Acute Care Hosp Condition: Fair No Smoking: If you smoke, Please STOP! Call for help. Follow-up with: LEIGH DOUGHERTY [Primary Care Provider] -
[2020-05-05] MEDS ORDERED: DIGOXIN 125 MCG TABLET PO SCH (09:00)
[2020-05-05] MEDS ORDERED: WARFARIN 5 MG TABLET PO SCH (14:00)
== END 2020-05-04 18:20 | disposition short-term general hospital (02) | DRG 698 ==
LOC: EDUNIT# → ED 20:10 → ICU 22:01
PROVIDERS: ADMIT Internal Medicine; ATTEND Specialist
PROC: 02HV33Z Insertion of Infusion Device into Superior Vena Cava, Percutaneous Approach (ICD-10-PCS; principal; 2020-05-04)
DX: I48.91 Unspecified atrial fibrillation (principal); E87.2 Acidosis; T83.511A Infection and inflammatory reaction due to indwelling urethral catheter, initial encounter; A41.02 Sepsis due to Methicillin resistant Staphylococcus aureus; A40.1 Sepsis due to streptococcus, group B; G93.41 Metabolic encephalopathy; D72.829 Elevated white blood cell count, unspecified; R53.1 Weakness; N40.0 Benign prostatic hyperplasia without lower urinary tract symptoms; R65.21 Severe sepsis with septic shock; I48.20 Chronic atrial fibrillation, unspecified; Z91.19 Patient's noncompliance with other medical treatment and regimen; E87.1 Hypo-osmolality and hyponatremia; N13.8 Other obstructive and reflux uropathy; N17.9 Acute kidney failure, unspecified; N12 Tubulo-interstitial nephritis, not specified as acute or chronic; I12.9 Hypertensive chronic kidney disease with stage 1 through stage 4 chronic kidney disease, or unspecified chronic kidney disease; E11.22 Type 2 diabetes mellitus with diabetic chronic kidney disease; N18.3 Chronic kidney disease, stage 3 (moderate); N40.1 Benign prostatic hyperplasia with lower urinary tract symptoms; E11.65 Type 2 diabetes mellitus with hyperglycemia; E11.42 Type 2 diabetes mellitus with diabetic polyneuropathy; I27.81 Cor pulmonale (chronic); R79.1 Abnormal coagulation profile; E86.0 Dehydration; E78.5 Hyperlipidemia, unspecified; D64.9 Anemia, unspecified; S50.311A Abrasion of right elbow, initial encounter; W18.09XA Striking against other object with subsequent fall, initial encounter; Y92.009 Unspecified place in unspecified non-institutional (private) residence as the place of occurrence of the external cause; M70.21 Olecranon bursitis, right elbow; L89.322 Pressure ulcer of left buttock, stage 2; L89.312 Pressure ulcer of right buttock, stage 2; M79.662 Pain in left lower leg; M79.661 Pain in right lower leg; M15.9 Polyosteoarthritis, unspecified; Z74.01 Bed confinement status; S43.402D Unspecified sprain of left shoulder joint, subsequent encounter; W19.XXXD Unspecified fall, subsequent encounter; Z96.651 Presence of right artificial knee joint; Z96.642 Presence of left artificial hip joint; Z91.81 History of falling; Z79.84 Long term (current) use of oral hypoglycemic drugs; Z79.01 Long term (current) use of anticoagulants; Z79.899 Other long term (current) drug therapy
CPT/HCPCS: 36415; 51702; 70450; 71045; 72193; 73030; 73080; 73200; 73502; 73565; 74176; 76770; 80048; 80053; 80162; 80202; 81001; 82009; 82040; 82330; 82550; 82607; 82746; 82803; 83036; 83540; 83605; 83690; 83735; 84100; 84466; 85025; 85610; 87040; 87077; 87086; 87150; 87181; 93306; 93308; 93970; 96361; 96365; 96375; 97110; 97162; 97167; 97530; 99285; A6250; A9270; C1751; J1170; J1815; J2020; J3370; Q9967; 81003